=== PATIENT | female | born 1950 | race Caucasian/White ===

== ENCOUNTER → 2018-07-04 | Outpatient (CLI) | payer MEDICARE ==
[~2018-07-04] MED LIST: AMITRIPTYLINE H75 MG; CYMBALTA20 MG; CYMBALTA30 MG; DILTIAZEM ER240 M1; HYDROCODON-ACE1 EAC9; HYDROXYZINE HCL50 MG; KLONOPIN0.5 MG; METAPROTERENOL; NEURONTIN300 MG; NEXIUM20 M1; OLEPTRO ER150 MG; PHENOBARBITAL15 MG
--- NOTE | 2018-07-04 17:37 | Diagnostic Imaging Report ---
EXAMINATION: Abdomen pelvis CT without contrast Indication: History of renal stones, presents with back pain Comparisons: None TECHNIQUE: Spiral CT images of the abdomen and pelvis were performed from the lung bases to the lesser trochanters. No intravenous contrast was given per renal stone protocol. Coronal and sagittal reformatted images were obtained. DISCUSSION: ABSENCE OF INTRAVENOUS CONTRAST DECREASES SENSITIVITY FOR DETECTION OF FOCAL LESIONS AND VASCULAR PATHOLOGY. ABDOMEN/PELVIS: LOWER THORAX: Few scattered coronary calcifications. Lung bases are clear. Lobulated extrapleural fat bilaterally. HEPATOBILIARY: Normal size and contour. No focal hepatic lesions. No intra or extrahepatic biliary ductal dilation. GALLBLADDER: Layering hyperdensity within the gallbladder suggestive of sludge. No wall thickening. SPLEEN: Mild splenomegaly, measuring 14.4 cm in length. PANCREAS: No focal masses or ductal dilatation. ADRENALS: No adrenal nodules. KIDNEYS/URETERS: No hydronephrosis or solid mass lesions. Bilateral nonobstructing renal stones measuring up to 5 to 6 mm in diameter. A 2.8 cm cyst within the right superior pole (series 3, image 34). Somewhat limited evaluation of the distal ureters near the ureterovesicular junction given metallic artifact. PELVIC ORGANS/BLADDER: Somewhat limited evaluation given metallic artifacts as above. Otherwise, grossly unremarkable. PERITONEUM/RETROPERITONEUM: Trace pelvic free fluid is likely physiologic. LYMPH NODES: No intra-abdominal,retroperitoneal, pelvic or inguinal lymphadenopathy. VESSELS: Calcific atherosclerosis of the abdominal aorta and major branching vessels without aneurysmal dilatation. GI TRACT: Appropriately positioned gastrostomy button. No abnormal distention. Few short segment circumferential thickening of the sigmoid colon may represent muscular contraction given the lack of surrounding inflammatory changes. BONES AND SOFT TISSUES: Partially visualized total right hip arthroplasty. Three cannulated screws are noted within the left proximal femur. Diffuse bony demineralization. Wedge compression deformity and Schmorl's node of the T12 vertebral body with mild anterior height loss. Multilevel degenerative changes of the lumbar spine. Sequela of recent injections within the lower abdomen bilaterally. IMPRESSION: Bilateral non-obstructing renal calculi measuring up to 6 mm in diameter. Additional findings: Mild splenomegaly, gallbladder sludge. Signed by: Dante Mccloud MD on 07/04/2018 5:33 PM
== END ==
LOC: CT 15:28
PROVIDERS: ATTEND Urology
DX: N20.0 Calculus of kidney (principal)
CPT/HCPCS: 74176

== ENCOUNTER → 2018-08-19 | Day surgery (SDC) | payer MEDICARE ==
--- NOTE | 2018-08-18 14:17 | Diagnostic Imaging Report ---
EXAMINATION: CHEST 2 VIEWS INDICATION: Pre-operative. COMPARISON: None FINDINGS: TUBES and LINES: None. LUNGS: Lungs are well inflated. There is no evidence of pneumonia or pulmonary edema. Chronic appearing biapical pleural-parenchymal opacity with upper lobe interstitial opacities, consistent with prior granulomatous disease. PLEURA: No pleural effusion or pneumothorax. HEART AND MEDIASTINUM: The cardiomediastinal silhouette is unremarkable. There are atherosclerotic calcifications within the aorta. BONES AND SOFT TISSUES: No acute osseous abnormality. UPPER ABDOMEN: No free air under the diaphragm. IMPRESSION: No acute radiographic abnormality. Signed by: Dr. Eva Lamas MD on 08/18/2018 2:14 PM
--- NOTE | 2018-08-18 14:21 | Diagnostic Imaging Report ---
Exam: KUB - 3 views Clinical History: Preoperative, renal stones. Comparison: CT abdomen/pelvis 07/04/2018. Findings: Bowel gas partially obscures visualization of the kidneys. Bilateral renal stones noted on prior CT are not well visualized. No evidence of calcification overlying the expected location of the ureters. Nonobstructive bowel gas pattern. Gastrostomy tube is noted. Partially seen right total hip arthroplasty and left proximal femoral fixation hardware. No acute osseous abnormality. Impression: Bowel gas partially obscures visualization of the kidneys. Bilateral renal stones noted on prior CT are not well visualized. Signed by: Dr. Eva Lamas MD on 08/18/2018 2:18 PM
[2018-08-18 15:06] LABS: BASOPHILS % 0.3 % (0.0-1.0); EOSINOPHILS # (AUTO) 0.3 (0.0-0.4); HEMATOCRIT 35.5 % (34.2-44.1); HEMOGLOBIN 12.1 g/dL (12.0-16.0); LYMPHOCYTES # (AUTO) 1.6 (1.0-3.2); LYMPHOCYTES % 24.5 % (18.0-39.1); MEAN CORPUSCULAR HEMOGLOBIN 33.6 pg (28-32); MEAN CORPUSCULAR HGB CONC 34.1 g/dL (31-35); MEAN CORPUSCULAR VOLUME 98.6 fL (81-99); MONOCYTES # (AUTO) 0.6 (0.2-0.8); MONOCYTES % 9.4 % (4.4-11.3); NEUTROPHILS # (AUTO) 3.8 (2.1-6.9); NEUTROPHILS % 60.3 % (38.7-80.0); PLATELET COUNT 67 x10e3/uL (140-360); RED CELL DISTRIBUTION WIDTH 14.9 % (11.7-14.4)
[2018-08-18 15:18] LABS: ANION GAP 11.2 mmol/L (8-16); BLOOD UREA NITROGEN 15 mg/dL (7-26); BUN/CREATININE RATIO 21 (6-25); CALCIUM 9.7 mg/dL (8.4-10.2); CARBON DIOXIDE 29 mmol/L (22-29); CHLORIDE 100 mmol/L (98-107); CREATININE, SERUM 0.72 mg/dL (0.57-1.11); EST GLOMERULAR FILTRATION RATE > 60 ML/MIN (60-); GLUCOSE 99 mg/dL (74-118); POTASSIUM 4.2 mmol/L (3.5-5.1); SODIUM 136 mmol/L (136-145)
[~2018-08-19] MED LIST changes: -AMITRIPTYLINE H75 MG; +AMITRIPTYLINE H75 MG GT; +B&O 60MG R/S 60 MG SUPP PR ONE; +BENZONATATE100 MG PO; +BISACODYL5 MG PO; +DESFLURANE 240 ML BTL INH ONE; +DEXAMETHASONE SOD PHOS INJ 4 MG/ML VIAL ONE; +DIAZEPAM5 MG GT; +DIAZEPAM5 MG PO; +FENTANYL CITRATE/PF 100MCG/2 ML INJ ONE; +FLECAINIDE ACE100 MG GT; +GENTAMICIN 80MG/NS 100 ML 100 ML IV ONE; +HYDRALAZINE HCL 20 MG/ML VIAL ONE; +IOPAMIDOL 610MG/1ML 300 MG/ML VIAL IV ONE; -KLONOPIN0.5 MG; +KLONOPIN0.5 MG GT; +LEVOTHYROXINE50 MCG GT; +MEPERIDINE HCL INJ 25 MG/ML VIAL ONE; +METOPROLOL TART50 MG GT; -NEXIUM20 M1; +NEXIUM20 M1 GT; +NORCO 7.5-3251 EACH GT; -OLEPTRO ER150 MG; +OLEPTRO ER150 MG GT; +ONDANSETRON HCL INJ 2MG/ML 2ML 2 MG/ML VIAL ONE; +ONDANSETRON2 MG/1 ML GT; -PHENOBARBITAL15 MG; +PHENOBARBITAL15 MG GT; +PILOCARPINE HCL5 MG GT; +PROMETHAZINE HC25 M1 GT; +PROMETHAZINE HCL (IM) 25 MG/ML VIAL ONE; +PROPOFOL IV EMULSION 10 MG/ML 20 ML VIAL ONE; +SODIUM CHLORIDE 0.9% 250ML 250 ML ONE; +[UNRECOGNIZED DRUG - OTHER]; +lidocaine patch
--- OUTSIDE RECORDS SUMMARY | 2018-08-19 06:18 | XMS REPORT | Clinical Summary ---
Author Author [facility] Organization [facility] Address Unknown Phone Unavailable Care Team Providers Care Pharmacy Consultant Name Role Phone Pearl Grande MD PCP Allergies Comments Active Allergy Reactions Severity Noted Date Cephalosporins Rash Medium 02/01/2017 Erythromycin Rash Medium 02/01/2017 Pork/Porcine Containing Shortness Of High 02/01/2017 Products Breath, Rash [place] Shortness Of High 02/01/2017 Breath, Rash Sulfa (Sulfonamide Hives, Rash Medium 02/01/2017 Antibiotics) Medications End Date Status Medication Sig Dispensed Refills Start Date Active atorvastatin (LIPITOR) 10 Take 10 mg by 0 MG tablet mouth 7 nightly. Active DULoxetine (CYMBALTA) 60 Take 60 mg by 0 MG capsule mouth 2 (two) 7 times a day. Active glimepiride (AMARYL) 4 MG Take 4 mg by 0 tablet mouth 2 (two) 7 times a day with meals. Active HYDROcodone-acetaminophen Take 1 tablet 0 (NORCO) 10-325 mg per by mouth 7 tablet every 4 (four) hours as needed for pain. Active hydrOXYzine (ATARAX) 50 Take 50 mg by 0 MG tablet mouth 3 7 (three) times a day. Active diltiazem XR (DILACOR XR) Take 240 mg 0 240 MG 24 hr capsule by mouth 7 every morning. Active metoprolol tartrate Take 50 mg by 0 (LOPRESSOR) 50 mg tablet mouth 2 (two) 7 times a day. Active omeprazole (PriLOSEC) 40 Take 40 mg by 0 MG capsule mouth daily before breakfast. Active traZODone (DESYREL) 100 Take 100 mg 0 MG tablet by mouth 7 nightly. Active PHENobarbital (LUMINAL) Take 90 mg by 0 30 MG tablet mouth 7 nightly. Active NYAMYC 100,000 unit/gram Apply 1 0 powder application 7 topically 2 (two) times a day as needed for rash. Active lidocaine (LIDODERM) 5 % Place 2 0 patches on 7 the skin nightly. PLACE 1 patch on each leg Active clonAZEPAM (KlonoPIN) 0.5 Take 0.25 mg 0 MG tablet by mouth 3 (three) times a day as needed for seizures. Active ranitidine (ZANTAC) 150 Take 300 mg 0 MG tablet by mouth daily. Active dicyclomine (BENTYL) 10 Take 10 mg by 0 MG capsule mouth 3 (three) times a day. Active escitalopram (LEXAPRO) 10 Take 10 mg by 0 MG tablet mouth daily. Active levothyroxine (SYNTHROID, Take 50 mcg 0 LEVOXYL) 50 mcg tablet by mouth every morning. 10/13/2017 Discontinued diazePAM (VALIUM) 5 MG Take 5 mg by 0 tablet mouth 3 7 (three) times a day. 10/13/2017 Discontinued doxycycline (MONODOX) 100 Take 100 mg 0 MG capsule by mouth 7 nightly. 10/13/2017 Discontinued benadryl/lidocaine/maalox Swish and 0 (MAGIC MOUTHWASH) 1:1:1 swallow 15 mL suspension suspension every 6 (six) hours. Active Problems Problem Noted Date Urinary tract infection without hematuria 10/13/2017 Dehydration 02/01/2017 Encounters Care Team Description Date Type Specialty Luis Chan MD Mougouris, Taso, MD Urinary tract infection without hematuria, site unspecified (Primary Dx); Nausea; Dehydration; Abdominal pain, unspecified abdominal location 10/12/2017 Emergency General Internal Medicine - 10/13/2017 after 08/18/2017 Social History Date Tobacco Use Types Packs/Day Years Used Never Smoker Smokeless Tobacco: Never Used Alcohol Use Drinks/Week oz/Week Comments No Sex Assigned at Date Recorded Not on file Industry Job Start Date Occupation Not on file Not on file Not on file Travel End Travel History Travel Start No recent travel history available. Last Filed Vital Signs Time Taken Vital Sign Reading 10/13/2017 7:05 AM CDT Blood Pressure 166/63 10/13/2017 7:05 AM CDT Pulse 76 10/13/2017 7:05 AM CDT Temperature 36.6 C (97.9 F) 10/13/2017 7:05 AM CDT Respiratory Rate 18 10/13/2017 7:05 AM CDT Oxygen Saturation 95% - Inhaled Oxygen - Concentration 10/12/2017 8:53 PM CDT Weight 54.4 kg (120 lb) 10/12/2017 8:53 PM CDT Height 160 cm (5' 3") 10/12/2017 8:53 PM CDT Body Mass Index 21.26 Plan of Treatment Health Maintenance Due Date Last Done Comments BREAST CANCER SCREENING 2001 COLON CANCER SCREENING 2001 SHINGLES VACCINES (#1) 2001 65+ PNEUMOCOCCAL VACCINE 2016 (1 of 2 - PCV13) INFLUENZA VACCINE 10/13/2018 Procedures Comments Procedure Name Priority Date/Time Associated Diagnosis TROPONIN Timed 10/13/2017 3:38 AM CDT URINALYSIS SCREEN AND STAT 10/13/2017 MICROSCOPY, WITH REFLEX 1:00 AM CDT TO CULTURE GRAM STAIN STAT 10/13/2017 1:00 AM CDT URINE CULTURE STAT 10/13/2017 1:[address] HEAD WO CONTRAST STAT 10/13/2017 12:[address] ABDOMEN PELVIS WO STAT 10/13/2017 CONTRAST 12:49 AM CDT B NATRIURETIC PEPTIDE STAT 10/12/2017 10:24 PM CDT TROPONIN STAT 10/12/2017 10:24 PM CDT ZZESTIMATED GFR STAT 10/12/2017 10:24 PM CDT LIPASE LEVEL STAT 10/12/2017 10:24 PM CDT LACTIC ACID LEVEL, SEPSIS STAT 10/12/2017 - NOW AND REPEAT 2X EVERY 10:24 PM CDT 3 HOURS HEPATIC FUNCTION PANEL STAT 10/12/2017 10:24 PM CDT HC COMPLETE BLD COUNT STAT 10/12/2017 W/AUTO DIFF 10:24 PM CDT BASIC METABOLIC PANEL STAT 10/12/2017 10:24 PM CDT after 08/18/2017 Results * Troponin (10/13/2017 3:38 AM CDT) Only the most recent of 2 results within the time period is included. [facility] Troponin <0.300 0.000 - 0.300 ng/mL [facility] Comment: DEPARTMENT OF 0.30 - 1.49 PATHOLOGY AND ng/mlMay GENOMIC indicate increased risk of MEDICINE acute coronary syndrome. >=1.5 ng/ml Consistent with acute myocardial infarction. The diagnostic value of a single normal or non-diagnostic result is questionable.Serial samples at 2-6 hour intervals are required to rule out acute myocardial injury. Specimen Plasma specimen Performing Organization Address City/State/Zipcode Phone Number [facility] [place] [place] [address] [place] [address] PATHOLOGY AND GENOMIC MEDICINE * Urinalysis screen and microscopy, with reflex to culture (10/13/2017 1:00 AM CDT) [facility] Specimen site Clean catch [facility] DEPARTMENT OF PATHOLOGY AND GENOMIC MEDICINE Color, UA Yellow [facility] DEPARTMENT OF PATHOLOGY AND GENOMIC MEDICINE Appearance, UA Clear [facility] DEPARTMENT OF PATHOLOGY AND GENOMIC MEDICINE Specific 1.008 1.001 - 1.035 [facility] gravity, DEPARTMENT OF PATHOLOGY AND GENOMIC MEDICINE pH, UA 6.0 5.0 - 8.5 [facility] DEPARTMENT OF PATHOLOGY AND GENOMIC MEDICINE Protein, UA Negative Negative [facility] DEPARTMENT OF PATHOLOGY AND GENOMIC MEDICINE Glucose, UA Negative Negative [facility] DEPARTMENT OF PATHOLOGY AND GENOMIC MEDICINE Ketones, UA Negative Negative [facility] DEPARTMENT OF PATHOLOGY AND GENOMIC MEDICINE Bilirubin, UA Negative Negative [facility] DEPARTMENT OF PATHOLOGY AND GENOMIC MEDICINE Blood, UA Negative Negative [facility] DEPARTMENT OF PATHOLOGY AND GENOMIC MEDICINE Nitrite, UA Negative Negative [facility] DEPARTMENT OF PATHOLOGY AND GENOMIC MEDICINE Urobilinogen, Negative <2.0 [facility] DEPARTMENT OF PATHOLOGY AND GENOMIC MEDICINE Leukocyte Small (A) Negative [facility] esterase, DEPARTMENT OF PATHOLOGY AND GENOMIC MEDICINE Round Moderate 0 - 1 /HPF [facility] epithelial DEPARTMENT OF cells, PATHOLOGY AND GENOMIC MEDICINE WBC, UA 6-10 (H) 0 - 4 /HPF [facility] DEPARTMENT OF PATHOLOGY AND GENOMIC MEDICINE RBC, UA 6-10 (H) 0 - 5 /HPF [facility] DEPARTMENT OF PATHOLOGY AND GENOMIC MEDICINE Bacteria, UA None seen None seen [facility] DEPARTMENT OF PATHOLOGY AND GENOMIC MEDICINE Yeast, UA None seen [facility] DEPARTMENT OF PATHOLOGY AND GENOMIC MEDICINE Yeast with None seen [facility] pseudohyphae, DEPARTMENT OF PATHOLOGY AND GENOMIC MEDICINE Specimen Urine Performing Organization Address City/[facility] [address]/Zipcode Phone Number [facility] DEPARTMENT OF [address] [place] [address] [place] [address] PATHOLOGY AND GENOMIC MEDICINE * Gram stain (10/13/2017 1:00 AM CDT) Gram stain Rare WBC's [facility] DEPARTMENT result No organisms seen OF PATHOLOGY Comment: AND GENOMIC Specimen Information MEDICINE Specimen Source: Urine Specimen Site: Clean catch Specimen Urine Performing Organization Address City/State/Zipcode Phone Number [facility] DEPARTMENT OF [address] [phone] PATHOLOGY AND GENOMIC MEDICINE * Urine culture (10/13/2017 1:00 AM CDT) Urine culture Gram positive mita [facility] DEPARTMENT isolate 10-1 cfu/ml OF PATHOLOGY (A) AND GENOMIC Comment: MEDICINE Specimen Information Specimen Source: Urine Specimen Site: Clean catch Specimen Urine Performing Organization Address City/[facility] [address]/[facility] Phone Number [facility] DEPARTMENT OF [address] [place] [address] PATHOLOGY AND GENOMIC MEDICINE * CT Head Wo Contrast (10/13/2017 12:50 AM CDT) Specimen Narrative Performed At EXAMINATION: CT HEAD WO CONTRAST RADIANT CLINICAL HISTORY: fall 1 week agogeneralized weakness COMPARISON:09/19/[address] TECHNIQUE: Noncontrast enhanced images of the brain were obtained from the skull base to the vertex. Both soft tissue and bone reconstruction algorithms were performed. CT scans are performed using radiation dose reduction techniques (iterative reconstruction and/or automated exposure control). Technical factors are evaluated and adjusted to ensure appropriate moderation of exposure. Automated dose management technology is applied to adjust radiation exposure while achieving a diagnostic quality image. FINDINGS: Mild generalized brain parenchymal volume loss. Nonspecific hypoattenuation of the supratentorial white matter, likely chronic microangiopathic changes. Mild cerebrovascular calcifications. The brain parenchyma is otherwise unremarkable. The garza-white matter differentiation is preserved. No evidence of acute intra or extra-axial hemorrhage, mass, mass effect or acute territorial infarction. There is no acute hydrocephalus. Basal cisterns are patent. No acute soft tissue hematoma or laceration. No skull fractures or aggressive bony lesions. Paranasal sinuses and mastoid air cells are clear. Orbits are normal. IMPRESSION: No acute intracranial abnormality identified. [facility]-[id number] Procedure Note Interface, Radiology Results Incoming - 10/13/2017 12:56 AM CDT EXAMINATION: CT HEAD WO CONTRAST CLINICAL HISTORY: fall 1 week ago generalized weakness COMPARISON: 09/19/[address] TECHNIQUE: Noncontrast enhanced images of the brain were obtained from the skull base to the vertex. Both soft tissue and bone reconstruction algorithms were performed. CT scans are performed using radiation dose reduction techniques (iterative reconstruction and/or automated exposure control). Technical factors are evaluated and adjusted to ensure appropriate moderation of exposure. Automated dose management technology is applied to adjust radiation exposure while achieving a diagnostic quality image. FINDINGS: Mild generalized brain parenchymal volume loss. Nonspecific hypoattenuation of the supratentorial white matter, likely chronic microangiopathic changes. Mild cerebrovascular calcifications. The brain parenchyma is otherwise unremarkable. The garza-white matter differentiation is preserved. No evidence of acute intra or extra-axial hemorrhage, mass, mass effect or acute territorial infarction. There is no acute hydrocephalus. Basal cisterns are patent. No acute soft tissue hematoma or laceration. No skull fractures or aggressive bony lesions. Paranasal sinuses and mastoid air cells are clear. Orbits are normal. IMPRESSION: No acute intracranial abnormality identified. [facility]-[id number] Performing Organization Address City/State/Zipcode Phone Number [facility] [address] [place] [address] * CT Abdomen Pelvis Wo Contrast (10/13/2017 12:49 AM CDT) Specimen Narrative Performed At EXAMINATION:[facility]:fall 1 week ago with diffuse abd pain eval liver splenic injuryviscous injury. TECHNIQUE: Multiple axial images of the abdomen and pelvis were obtained without intravenous administration of iodinated contrast. Sagittal and coronal computerized reformatted images were also obtained. The lack of intravenous contrast reduces the sensitivity of detecting solid organ disease. CT imaging was performed with iterative reconstruction technique and/or automated exposure control to reduce radiation dose. COMPARISON:10/18/2011 IMPRESSION: Mild bibasilar atelectasis/scarring. High-density material is seen in the lumen of the gallbladder, suggestive of sludge and/or gallstones. No wall thickening or pericholecystic fluid. Liver, pancreas, adrenal glands are normal. Spleen is enlarged measuring 14.4 cm in length. Simple cysts are seen of the right kidney. Punctate nonobstructive calculus is seen of inferior pole of the right kidney. Punctate nonobstructive calculus is seen of interpolar region of the left kidney. In the left renal pelvis, there is a nonobstructive calculus measuring 0.7 x 0.3 cm. No left hydronephrosis or hydroureter. Bladder is normal. No free intraperitoneal fluid or air. Atherosclerotic vascular calcifications are seen. Focal narrowing and wall thickening of the ascending colon is seen (series 2, images 59-64), and a mass cannot be excluded. Correlation with colonoscopy would be of benefit. The appendix is normal. No gastrointestinal tract obstruction. No acute osseous abnormalities. Patient is status post right hip arthroplasty. Hardware is seen of the left femur. Old compression deformity of superior endplate of T12 is stable since 2011. CONCLUSION: Nonobstructive calculus is seen in the left renal pelvis measuring 0.7 x 0.3 cm. Additional nonobstructive calculi are seen of the collecting system of the kidneys bilaterally. Focal narrowing/wall thickening of the ascending colon is seen as detailed above. Underlying mass cannot be excluded and correlation with colonoscopy is advised. High-density material is seen in the lumen of the gallbladder, suggestive of sludge and/or gallstones. No acute traumatic anomalies. [facility]-[id number] Procedure Note [facility], Radiology Results Incoming - 10/13/2017 1:06 AM CDT EXAMINATION: CT ABDOMEN PELVIS WO CONTRAST CLINICAL HISTORY: fall 1 week ago with diffuse abd pain eval liver splenic injury viscous injury. TECHNIQUE: Multiple axial images of the abdomen and pelvis were obtained without intravenous administration of iodinated contrast. Sagittal and coronal computerized reformatted images were also obtained. The lack of intravenous contrast reduces the sensitivity of detecting solid organ disease. CT imaging was performed with iterative reconstruction technique and/or automated exposure control to reduce radiation dose. COMPARISON: 10/18/2011 IMPRESSION: Mild bibasilar atelectasis/scarring. High-density material is seen in the lumen of the gallbladder, suggestive of sludge and/or gallstones. No wall thickening or pericholecystic fluid. Liver, pancreas, adrenal glands are normal. Spleen is enlarged measuring 14.4 cm in length. Simple cysts are seen of the right kidney. Punctate nonobstructive calculus is seen of inferior pole of the right kidney. Punctate nonobstructive calculus is seen of interpolar region of the left kidney. In the left renal pelvis, there is a nonobstructive calculus measuring 0.7 x 0.3 cm. No left hydronephrosis or hydroureter. Bladder is normal. No free intraperitoneal fluid or air. Atherosclerotic vascular calcifications are seen. Focal narrowing and wall thickening of the ascending colon is seen (series 2, images 59-64), and a mass cannot be excluded. Correlation with colonoscopy would be of benefit. The appendix is normal. No gastrointestinal tract obstruction. No acute osseous abnormalities. Patient is status post right hip arthroplasty. Hardware is seen of the left femur. Old compression deformity of superior endplate of T12 is stable since 2012. CONCLUSION: Nonobstructive calculus is seen in the left renal pelvis measuring 0.7 x 0.3 cm. Additional nonobstructive calculi are seen of the collecting system of the kidneys bilaterally. Focal narrowing/wall thickening of the ascending colon is seen as detailed above. Underlying mass cannot be excluded and correlation with colonoscopy is advised. High-density material is seen in the lumen of the gallbladder, suggestive of sludge and/or gallstones. No acute traumatic anomalies. [facility]-[id number] Performing Organization Address City/State/Zipcode Phone Number [facility] [address] [place] [address] * Lactic acid level, SEPSIS - Now and repeat 2x every 3 hours (10/12/2017 10:24 PM CDT) Lactic acid 1.0 0.5 - 2.2 mmol/L [facility] DEPARTMENT OF PATHOLOGY AND GENOMIC MEDICINE Specimen Plasma specimen Performing Organization Address City/State/Zipcode Phone Number [address] [place] [address] PATHOLOGY AND GENOMIC MEDICINE * Estimated GFR (10/12/2017 10:24 PM CDT) [facility] GFR Non Af Amer 84 mL/min/1.73 m2 [facility] PATHOLOGY AND GENOMIC [facility] GFR Af Amer >90 mL/min/1.73 m2 [facility] Comment: DEPARTMENT OF Chronic kidney disease: <60 PATHOLOGY AND mL/min/1.73m2 GENOMIC Kidney failure: <15 MEDICINE mL/min/1.73m2 The estimated GFR is calculated from the IDMS-traceable Modification of Diet in Renal Disease Equation. The accuracy of the calculation is poor when the creatinine is normal. Calculated values >90 mL/min/1.73m2 are not reported. This equation has not been validated in children (<18 years), women, the elderly (>70 years), or ethnic groups other than Caucasians and Americans. Specimen Plasma specimen Performing Organization Address City/State/Zipcode Phone Number [facility] [address] [place] [address] [facility] * CBC with platelet and differential (10/12/2017 10:24 PM CDT) [facility] WBC 8.42 4.50 - 11.00 k/uL [facility] DEPARTMENT OF PATHOLOGY AND GENOMIC MEDICINE RBC 3.93 (L) 4.20 - 5.50 m/uL [facility] PATHOLOGY AND GENOMIC MEDICINE HGB 12.3 12.0 - 16.0 g/dL [facility] PATHOLOGY AND GENOMIC MEDICINE HCT 36.5 (L) 37.0 - 47.0 % [facility] DEPARTMENT PATHOLOGY AND GENOMIC MEDICINE MCV 92.9 82.0 - 100.0 fL [facility] DEPARTMENT OF PATHOLOGY AND GENOMIC MEDICINE MCH 31.3 27.0 - 34.0 pg [facility] DEPARTMENT OF PATHOLOGY AND GENOMIC MEDICINE MCHC 33.7 31.0 - 37.0 g/dL [facility] DEPARTMENT OF PATHOLOGY AND GENOMIC MEDICINE RDW - SD 49.2 37.0 - 55.0 fL [facility] PATHOLOGY AND GENOMIC MEDICINE MPV 11.8 8.8 - 13.2 fL [facility] DEPARTMENT OF PATHOLOGY AND GENOMIC MEDICINE Platelet count 91 (L) 150 - 400 k/uL [facility] DEPARTMENT OF PATHOLOGY AND GENOMIC MEDICINE Nucleated RBC 0.00 /100 WBC [facility] DEPARTMENT OF PATHOLOGY AND GENOMIC MEDICINE Neutrophils 62.8 39.0 - 69.0 % [facility] DEPARTMENT OF PATHOLOGY AND GENOMIC MEDICINE Lymphocytes 23.2 (L) 25.0 - 45.0 % [facility] DEPARTMENT OF PATHOLOGY AND GENOMIC MEDICINE Monocytes 9.3 0.0 - 10.0 % [facility] DEPARTMENT OF PATHOLOGY AND GENOMIC MEDICINE Eosinophils 3.7 0.0 - 5.0 % [facility] DEPARTMENT OF PATHOLOGY AND GENOMIC MEDICINE Basophils 0.4 0.0 - 1.0 % [facility] DEPARTMENT OF PATHOLOGY AND GENOMIC MEDICINE Specimen Blood Performing Organization Address [facility] [address]/[facility] Phone Number [address] [place] [address] PATHOLOGY AND GENOMIC MEDICINE * B natriuretic peptide (10/12/2017 10:24 PM CDT) BNP 15 0 - 100 pg/mL [facility] DEPARTMENT OF PATHOLOGY AND GENOMIC MEDICINE Specimen Performing Organization Address [facility] [address]/[facility] Phone Number [address] [place] [address] PATHOLOGY AND GENOMIC [facility] * Lipase level (10/12/2017 10:24 PM CDT) Lipase 18 13 - 60 U/L [facility] DEPARTMENT OF PATHOLOGY AND GENOMIC MEDICINE Specimen Plasma specimen Performing Organization Address [facility] [address]/[facility] Phone Number [address] [place] [address] PATHOLOGY AND [facility] MEDICINE * Hepatic function panel (10/12/2017 10:24 PM CDT) Albumin 4.6 3.5 - 5.0 g/dL [facility] DEPARTMENT OF PATHOLOGY AND GENOMIC MEDICINE Total bilirubin 0.3 0.0 - 1.2 mg/dL [facility] DEPARTMENT OF PATHOLOGY AND GENOMIC MEDICINE Bilirubin <0.1 0.0 - 0.3 mg/dL [facility] direct DEPARTMENT OF PATHOLOGY AND GENOMIC MEDICINE Alkaline 153 (H) 35 - 104 U/L [facility] phosphatase DEPARTMENT OF PATHOLOGY AND GENOMIC MEDICINE Protein 6.9 6.3 - 8.3 g/dL [facility] Comment: DEPARTMENT OF PATHOLOGY AND 4.6-7.0 g/dL GENOMIC MEDICINE week 4.4-7.6 g/dL 7 months-1year 5.1-7.3 g/dL 1-2 years5.6-7 .5 g/dL >3 years6.0-8 .0 g/dL 18-150 6.3-8.3 g/dL ALT 18 5 - 50 U/L [facility] DEPARTMENT OF PATHOLOGY AND GENOMIC MEDICINE AST 16 10 - 35 U/L [facility] DEPARTMENT OF PATHOLOGY AND GENOMIC MEDICINE Specimen Plasma specimen Performing Organization Address [facility] [address]/[facility] Phone Number [facility] [address] [place] [address] PATHOLOGY AND GENOMIC [facility] * Basic metabolic panel (10/12/2017 10:24 PM CDT) Sodium 136 135 - 148 mEq/L [facility] DEPARTMENT OF PATHOLOGY AND GENOMIC MEDICINE Potassium 4.1 3.5 - 5.0 mEq/L [facility] DEPARTMENT OF PATHOLOGY AND GENOMIC MEDICINE Chloride 96 (L) 98 - 112 mEq/L [facility] DEPARTMENT OF PATHOLOGY AND GENOMIC MEDICINE CO2 31 24 - 31 mEq/L [facility] DEPARTMENT OF PATHOLOGY AND GENOMIC MEDICINE Anion gap 9@ANIO 7 - 15 mEq/L [facility] DEPARTMENT OF PATHOLOGY AND GENOMIC MEDICINE BUN 15 8 - 23 mg/dL [facility] DEPARTMENT OF PATHOLOGY AND GENOMIC MEDICINE Creatinine 0.7 0.5 - 0.9 mg/dL [facility] DEPARTMENT OF PATHOLOGY AND GENOMIC MEDICINE Glucose 117 (H) 65 - 99 mg/dL [facility] DEPARTMENT OF PATHOLOGY AND GENOMIC MEDICINE Calcium 9.6 8.8 - 10.2 mg/dL [facility] DEPARTMENT OF PATHOLOGY AND GENOMIC MEDICINE Specimen Plasma specimen Performing Organization Address [facility]ode Phone Number [place] [address] [place] [address] PATHOLOGY AND GENOMIC MEDICINE after 08/18/2017 Insurance Type Payer Benefit Subscriber ID Effective Phone Address Plan / Dates Group Medicare MEDICARE MEDICARE xxxxxxxxxxx 2016-P [facility] PART A AND resent [place] B Medicaid MEDICAID MEDICAID xxxxxxxxx 2016-P resent Advance Directives Patient has advance care planning documents, and code status on file. For more i nformation, please contact: Seamus Sloan [id number] [place] [address] Date Inactivated Comments Code Status Date Activated 10/13/2017 12:48 PM Full Code 10/13/2017 2:37 AM Code Status decision reached by: Patient 02/01/2017 10:36 PM Full Code 02/01/2017 5:43 PM Code Status decision reached by: Patient
--- OUTSIDE RECORDS SUMMARY | 2018-08-19 06:19 | XMS REPORT | Continuity of Care Document ---
Author Author [facility] Interface Address Unknown Phone Unavailable Problems Problem Status Onset Date Classification Date Reported Comments Source SOB Active 03/09/2018 [facility] WEAKNESS Active 02/05/2017 [facility] INTRACTABLE VOMITING, DEHYDRATION Active 02/05/2017 [facility] FALL Active 06/20/2013 [facility] HIP FRACTURE Active 06/20/2013 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 Dysuria<sup>6</sup> Active 08/09/2012 Problem 02/09/2017 Data migrated from [employer] on 08/11/14. [facility] Muscle weakness<sup>8</sup> Active 08/09/2012 Problem 02/09/2017 Data migrated from [employer] on 08/11/14. [facility] Coronary arteriosclerosis<sup>4</sup> Active 07/11/2012 Problem 02/09/2017 Data migrated from [employer] on 08/11/14. [facility] Neuropathy of lower limb<sup>9</sup> Active 07/11/2012 Problem 02/09/2017 Data migrated from [employer] on 08/11/14. [facility] UNK Active 06/08/2011 [facility] STONE Active 04/09/2011 [facility] RENAL STONE RT [id number] Active 04/09/2011 [facility] AMI - Acute myocardial infarction Resolved Problem 02/09/2017 [facility] Anxiety disorder<sup>1</sup> Active Problem 02/09/2017 Data migrated from [employer] on 08/11/14. [facility] Benign hypertension<sup>2</sup> Active Problem 02/09/2017 Data migrated from [employer] on 08/11/14. [facility] Cerebrovascular accident<sup>3</sup> Active Problem 02/09/2017 Data migrated from [employer] on 08/11/14. [facility] CVA - Cerebrovascular accident Resolved Problem 02/09/2017 [facility] Depressive disorder<sup>5</sup> Active Problem 02/09/2017 Data migrated from [employer] on 08/11/14. [facility] Fibromyalgia Active Problem 02/09/2017 [facility] GERD with esophagitis Resolved Problem 02/09/2017 [facility] Gastroesophageal reflux disease<sup>7</sup> Active Problem 02/09/2017 [facility] on 08/11/14. [facility] HTN - Hypertension Active Problem 02/09/2017 [facility] Neuropathy Active Problem 02/09/2017 [facility] 592.0 Active [facility] LUMBOSACRAL NEURITIS NOS Active [facility] FX NECK OF FEMUR NOS-OPN Active [facility] LEFT HIP ORIF Active [facility] LT HIP Active [facility] Medications Medication Details Route Status Patient Instructions Ordering Provider Order Date Source Ondansetron 8 MG Disintegrating Tablet [Zofran] 8 mg=1 tab, PO, TID, PRN Nausea and Vomiting, Dissolve tab under tongue, # 20 tab, 0 Refill(s), Pharmacy: [facility] [id number] Active 02/06/2017 [facility] 72 HR Fentanyl 0.025 MG/HR Transdermal Patch 1 patch, Route: TOP, Drug Form: ERFILM, Dosing Weight 62.756, kg, Q72H, NOW, Start date: 02/06/17 10:42:00 [employer], Duration: 30 day, Stop date: 03/05/17 10:42:00 CSTNotes: (Same as: Duragesic) Check for product integrity. Apply to intact skin "Remove old patch before application of new patch" Inactive 02/06/2017 [facility] NS 1,000 mL 1,000 mL, Rate: 200 ml/hr, Infuse over: 5 hr, Route: IV, Dosing Weight 62.756 kg, Total Volume: 1,000, Start date: 02/06/17 10:25:00 [employer]WORK [employer], Duration: 30 day, Stop date: 03/08/17 10:24:00 [employer], 1.7, m2 Inactive 02/06/2017 [facility] Diazepam 5 mg, 1 tab, Route: PO, Drug form: TAB, TID, Dosing Weight 62.756, kg, Start date: 02/06/17 9:00:00 [employer]AL [employer]WORK [employer]INEER, Duration: 30 day, Stop date: 03/07/17 17:00:00 CSTNotes: (Same as: Valium) Inactive 02/06/2017 [facility] Vitamin B 12 1,000 microgram, 2 tab, Route: PO, Drug form: TAB, Daily, Dosing Weight 62.756, kg, Start date: 02/06/17 9:00:00 [employer]AL [employer]WORK ENGINEER, Duration: 30 day, Stop date: 03/07/17 9:00:00 CSTNotes: (Same As: Vitamin B12) Inactive 02/06/2017 [facility] Clobetasol Propionate 0.0005 MG/MG Topical Ointment 1 appl, Route: TOP, BID, Drug form: OINT, Start date: 02/06/17 9:00:00 [employer]IPAL NETWORK ENGINEER, Duration: 30 day, Stop date: 03/07/17 17:00:00 CSTNotes: (clobetasol propionate 0.05% 15 gm top OIN) (Same As: Temovate) Inactive 02/06/2017 [facility] Furosemide 40 MG Oral Tablet 40 mg, 1 tab, Route: PO, Drug form: TAB, Daily, Dosing Weight 62.756, kg, Start date: 02/06/17 9:00:00 [employer]IPAL NETWORK ENGINEER, Duration: 30 day, Stop date: 03/07/17 9:00:00 CSTNotes: (Same as: Lasix) May cause GI upset. Give with food or milk. Inactive 02/06/2017 [facility] Cymbalta 30 mg, 1 cap, Route: PO, Drug form: DRC, BID, Dosing Weight 62.756, kg, Start date: 02/06/17 9:00:00 [employer]IPAL NETWORK ENGINEER, Duration: 30 day, Stop date: 03/07/17 17:00:00 CSTNotes: (Same as: Cymbalta) (Do Not Crush) Inactive 02/06/2017 [facility] Cartia XT 240 mg, 1 cap, Route: PO, Drug form: ERCAP, Daily, Dosing Weight 62.756, kg, Start date: 02/06/17 9:00:00 [employer]IPAL NETWORK ENGINEER, Duration: 30 day, Stop date: 03/07/17 9:00:00 CSTNotes: (Same as: Cardizem CD) Before meals. DO NOT CRUSH. Inactive 02/06/2017 [facility] Lidocaine 0.05 MG/MG Transdermal Patch 1 patch, Route: TOP, Daily, Drug form: FILM, Start date: 02/06/17 9:00:00 [employer]WORK ENGINEER, Duration: 30 day, Stop date: 03/07/17 9:00:00 CSTNotes: Apply only once for up to 12 hours in a 24-hour period (12 hours on and 12 hours off). (Same as: Lidoderm) "Remove old patch before application of new patch" Inactive 02/06/2017 [facility] Clonazepam 1 mg, 1 tab, Route: PO, Drug form: TAB, Q12H, Dosing Weight 62.756, kg, Start date: 02/06/17 9:00:00 [employer]IPAL NETWORK ENGINEER, Duration: 30 day, Stop date: 03/07/17 21:00:00 CSTNotes: (Same As: KlonoPIN) Inactive 02/06/2017 [facility] Zyrtec 10 mg, 2 tab, Route: PO, Drug form: TAB, Daily, Dosing Weight 62.756, kg, Start date: 02/06/17 9:00:00 [employer]IPAL NETWORK ENGINEER, Duration: 30 day, Stop date: 03/07/17 9:00:00 CSTNotes: (Same As: Zyrtec) Inactive 02/06/2017 [facility] Acetaminophen 325 MG / Hydrocodone Bitartrate 7.5 MG Oral Tablet [[place] 7.5/325] 1 tab, Route: PO, Drug Form: TAB, Dosing Weight 62.756, kg, Q12H, Start date: 02/06/17 9:00:00 [employer]IPAL NETWORK ENGINEER, Duration: 30 day, Stop date: 03/07/17 21:00:00 CSTNotes: Same as [place] 325-7.5mg Do not exceed 4gm/day of acetaminophen. Inactive 02/06/2017 [facility] Hydroxyzine Hydrochloride 50 MG Oral Tablet 50 mg, 2 tab, Route: PO, Drug form: TAB, TID, Dosing Weight 62.756, kg, Start date: 02/06/17 9:00:00 [employer]IPAL NETWORK ENGINEER, Duration: 30 day, Stop date: 03/07/17 17:00:00 CSTNotes: (Same as: Atarax) Avoid alcohol. Inactive 02/06/2017 [facility] glimepiride 4 mg, Route: PO, Drug form: TAB, BID, Dosing Weight 62.756, kg, Start date: 02/06/17 9:00:00 [employer]IPAL NETWORK ENGINEER, Duration: 30 day, Stop date: 03/07/17 17:00:00 [employer]IPAL NETWORK ENGINEER Inactive 02/06/2017 [facility] Doxycycline 100 mg, 2 cap, Route: PO, Drug form: CAP, Daily, Dosing Weight 62.756, kg, Start date: 02/06/17 9:00:00 [employer]IPAL NETWORK ENGINEER, Duration: 30 day, Stop date: 03/07/17 9:00:00 CSTNotes: (Same as: Vibramycin) No milk/antaci ds/iron. Take 1 hour before or 2 hours after dairy products Inactive 02/06/2017 [facility] multivitamin 1 tab, Route: PO, Drug Form: TAB, Dosing Weight 62.756, kg, Daily, Start date: 02/06/17 9:00:00 [employer]IPAL NETWORK ENGINEER, Duration: 30 day, Stop date: 03/07/17 9:00:00 CSTNotes: (Same as:One Tab Daily, Tab-A-Ruthann + Beta Carotene) Give with food. Inactive 02/06/2017 [facility] Acetaminophen 325 MG / Hydrocodone Bitartrate 10 MG Oral Tablet 1 tab, Route: PO, Drug Form: TAB, Dosing Weight 62.756, kg, TID, Start date: 02/06/17 9:00:00 [employer]IPAL NETWORK ENGINEER, Duration: 30 day, Stop date: 03/07/17 17:00:00 CSTNotes: Do not exceed 4gm/day of acetaminophen. (Same as: [place] 325/10) Inactive 02/06/2017 [facility] Dicyclomine 10 mg, 1 cap, Route: PO, Drug form: CAP, QID- Before Meals, Dosing Weight 62.756, kg, Start date: 02/06/17 7:30:00 [employer]IPAL NETWORK ENGINEER, Duration: 30 day, Stop date: 03/07/17 21:00:00 CSTNotes: (Same as: Bentyl) Inactive 02/06/2017 [facility] Nexium 20 mg, Route: PO, Drug form: ECCAP, Before Breakfast, Dosing Weight 62.756, kg, Start date: 02/06/17 7:30:00 [employer]IPAL NETWORK ENGINEER, Duration: 30 day, Stop date: 03/07/17 7:30:00 [employer]IPAL NETWORK ENGINEER Inactive 02/06/2017 [facility] Protonix 40 mg, 1 tab, Route: PO, Drug form: ECTAB, Before Breakfast, Start date: 02/06/17 7:30:00 PRINCIPAL NETWORK ENGINEER, Duration: 30 day, Stop date: 03/07/17 7:30:00 CSTNotes: Tablet should not be chewed or crushed. (Same as: Protonix) Inactive 02/06/2017 [facility] atorvastatin 10 mg, 1 tab, Route: PO, Drug form: TAB, Bedtime, Dosing Weight 62.756, kg, Start date: 02/06/17 0:43:00 PR[employer]IPAL NETWORK ENGINEER, Duration: 30 day, Stop date: 03/07/17 21:00:00 CSTNotes: (Same As: Lipitor) Inactive 02/06/2017 [facility] Phenobarbital 90 mg, 3 tab, Route: PO, Drug form: TAB, Bedtime, Dosing Weight 62.756, kg, Start date: 02/06/17 0:42:00 PRINCIPAL NETWORK ENGINEER, Duration: 30 day, Stop date: 03/07/17 21:00:00 CSTNotes: (Same as: Marifer Lamb, Solf oton) Inactive 02/06/2017 [facility] Phenergan 25 mg, 1 tab, Route: PO, Drug form: TAB, Q6H, Dosing Weight 62.756, kg, PRN Nausea, Start date: 02/06/17 0:26:00 [employer]INCIPAL NETWORK ENGINEER, Duration: 30 day, Stop date: 03/08/17 0:25:00 CSTNotes: (Same as: Phenergan) Inactive 02/06/2017 [facility] ammonium lactate 120 MG/ML Topical Cream 1 appl, Route: TOP, BID, Drug form: CRM, PRN Itching, Start date: 02/06/17 0:26:00 [employer]INCIPAL NETWORK ENGINEER, Duration: 30 day, Stop date: 03/08/17 0:25:00 CSTNotes: (Same as: Amlactin) Inactive 02/06/2017 [facility] Mupirocin 0.02 MG/MG Topical Ointment 1 appl, Route: TOP, TID, Drug form: OINT, PRN Itching, Start date: 02/06/17 0:26:00 [employer]IPAL NETWORK ENGINEER, Duration: 30 day, Stop date: 03/08/17 0:25:00 [employer]IPAL NETWORK ENGINEER Inactive 02/06/2017 [facility] Trazodone Hydrochloride 100 MG Oral Tablet 100 mg, 2 tab, Route: PO, Drug form: TAB, Bedtime, Dosing Weight 62.756, kg, Start date: 02/06/17 0:13:00 PRINCIPAL NETWORK ENGINEER, Duration: 30 day, Stop date: 03/07/17 21:00:00 CSTNotes: (Same As: Desyrel) Inactive 02/06/2017 [facility] Simvastatin 20 mg, 1 tab, Route: PO, Drug form: TAB, Bedtime, Dosing Weight 62.756, kg, Start date: 02/06/17 0:13:00 PRINCIPAL NETWORK ENGINEER, Duration: 30 day, Stop date: 03/07/17 21:00:00 CSTNotes: (Same as: Zocor) Inactive 02/06/2017 [facility] Lopressor 50 mg, 1 tab, Route: PO, Drug form: TAB, Q12H, Dosing Weight 62.756, kg, Start date: 02/06/17 0:12:00 PRINCIPAL NETWORK ENGINEER, Duration: 30 day, Stop date: 03/07/17 21:00:00 CSTNotes: (Same as: Lopressor) Inactive 02/06/2017 [facility] Hydroxyzine Hydrochloride 50 MG Oral Tablet 50 mg, 2 tab, Route: PO, Drug form: TAB, Bedtime, Dosing Weight 62.756, kg, Start date: 02/06/17 0:12:00 [employer]INCIPAL NETWORK ENGINEER, Duration: 30 day, Stop date: 03/07/17 21:00:00 CSTNotes: (Same as: Atarax) Avoid alcohol. Inactive 02/06/2017 [facility] Sodium Chloride 0.45% IV 1,000 mL 1,000 mL, Rate: 100 ml/hr, Infuse over: 10 hr, Route: IV, Dosing Weight 62.756 kg, Total Volume: 1,000, Start date: 02/06/17 0:06:00 [employer]IPAL NETWORK [employer]INEER, Duration: 30 day, Stop date: 03/08/17 0:05:00 [employer]IPAL NETWORK ENGINEER, 1.7, m2 Inactive 02/06/2017 [facility] Saline Flush 0.9% 10 ml, Route: IVP, Drug Form: INJ, Dosing Weight 62.756, kg, PRN, PRN Line Flush, Start date: 02/06/17 0:06:00 [employer]IPAL NETWORK ENGINEER, Duration: 30 day, Stop date: 03/08/17 0:05:00 CSTNotes: (Same as: BD Posiflush) Inactive 02/06/2017 [facility] Ondansetron 4 mg, 2 mL, Route: IVP, Drug form: INJ, Q6H, Dosing Weight 62.756, kg, PRN Nausea & Vomiting, Start date: 02/06/17 0:06:00 [employer]INCIPAL NETWORK ENGINEER, Duration: 30 day, Stop date: 03/08/17 0:05:00 CSTNotes: (Same as: Umu) MEDICATION WASTE Product Size: 4 mg Product Wasted: ___ mg Inactive 02/06/2017 [facility] Acetaminophen 650 mg, 2 tab, Route: PO, Drug form: TAB, Q4H, Dosing Weight 62.756, kg, PRN Pain 1-3/Temp > 100.4 F, Start date: 02/06/17 0:06:00 PRINCIPAL NETWORK ENGINEER, Duration: 30 day, Stop date: 03/08/17 0:05:00 CSTNotes: Do not exceed 4 gm/day. (Same as: Tylenol) Inactive 02/06/2017 [facility] PHENobarbital 30 mg oral tablet 90 mg=3 tab, PO, Bedtime, 0 Refill(s) Active 02/06/2017 [facility] Mupirocin 0.02 MG/MG Topical Ointment 1 appl, TOP, PRN Itching, 0 Refill(s) Active 02/06/2017 [facility] B-12 1000 mcg sublingual tablet 1,000 microgram=1 tab, SL, Daily, 0 Refill(s) Active 02/06/2017 [facility] omeprazole 40 mg oral delayed release capsule 40 mg=1 cap, PO, Daily, # 30 cap, 0 Refill(s) Active 02/06/2017 [facility] Acetaminophen 325 MG / Hydrocodone Bitartrate 10 MG Oral Tablet 1 tab, PO, TID, 0 Refill(s) Active 02/06/2017 [facility] Lidocaine 0.05 MG/MG Transdermal Patch 1 patch, TOP, Daily, 1 TO EACH LEG, 0 Refill(s) Active 02/06/2017 [facility] diazepam 5 mg oral tablet 5 mg=1 tab, PO, TID, 0 Refill(s) Active 02/06/2017 [facility] Multiple Vitamins oral tablet 1 tab, PO, Daily, # 90 tab, 0 Refill(s) Active 02/06/2017 [facility] Caltrate 600 + D 1 tab, PO, BID, 0 Refill(s) Active 02/06/2017 [facility] dicyclomine 10 mg oral capsule 10 mg=1 cap, PO, QID-Before Meals, # 56 cap, 0 Refill(s) Active 02/06/2017 [facility] Phenergan 25 mg oral tablet 25 mg=1 tab, PO, Q6H, PRN Nausea, # 15 tab, 0 Refill(s) Active 02/06/2017 [facility] glimepiride 4 mg oral tablet 4 mg=1 tab, PO, BID, 0 Refill(s) Active 02/06/2017 [facility] doxycycline monohydrate 100 mg oral tablet 100 mg=1 tab, PO, Daily, 0 Refill(s) Active 02/06/2017 [facility] Clobetasol Propionate 0.0005 MG/MG Topical Ointment 1 appl, TOP, BID, # 15 gm, 0 Refill(s) Active 02/06/2017 [facility] ammonium lactate 120 MG/ML Topical Cream 1 appl, TOP, PRN Itching, 0 Refill(s) Active 02/06/2017 [facility] Lactate TOP, BID, 0 Refill(s) Inactive 02/06/2017 [facility] atorvastatin 10 mg oral tablet 10 mg=1 tab, PO, Bedtime, # 30 tab, 0 Refill(s) Active 02/06/2017 [facility] Zofran 4 mg, 2 mL, Route: IVP, Drug form: INJ, ONCE, Dosing Weight 63.636, kg, Priority: STAT, Start date: 02/05/17 21:33:00 [employer]INCIPAL NETWORK ENGINEER, Stop date: 02/05/17 21:33:00 CSTNotes: (Same as: Zofran) MEDICATION WASTE Product Size: 4 mg Product Wasted: ___ mg Inactive 02/06/2017 [facility] Morphine 4 mg, 1 mL, Route: IVP, Drug form: SOLN, ONCE, Dosing Weight 63.636, kg, Priority: STAT, Start date: 02/05/17 21:33:00 PRINCIPAL NETWORK ENGINEER, Stop date: 02/05/17 21:33:00 CSTNotes: (Same as:MORPhine Sulfate) Inactive 02/06/2017 [facility] Ativan 0.5 mg, Route: IVP, Drug form: INJ, ONCE, Dosing Weight 63.636, kg, Priority: STAT, Start date: 02/05/17 20:26:00 PRINCIPAL NETWORK ENGINEER, Stop date: 02/05/17 20:26:00 PRINCIPAL NETWORK ENGINEER Inactive 02/06/2017 [facility] Sodium Chloride 0.9% (Bolus) IV 1,000 mL, 1000 ml/hr, Infuse Over: 1 hr, Route: IV, 1,000, Drug form: INJ, ONCE, Priority: STAT, Dosing Weight 63.636 kg, Start date: 02/05/17 19:20:00 PRINCIPAL NETWORK ENGINEER, Stop date: 02/05/17 19:20:00 PRINCIPAL NETWORK ENGINEER Inactive 02/06/2017 [facility] morphine Sulfate 4 mg, 2 mL, Route: IVP, Drug form: SOLN, ONCE, Dosing Weight 63.636, kg, Priority: STAT, Start date: 02/05/17 18:14:00 PRINCIPAL NETWORK ENGINEER, Stop date: 02/05/17 18:14:00 PRINCIPAL NETWORK ENGINEER Inactive 02/06/2017 [facility] Ondansetron 4 mg, 2 mL, Route: IVP, Drug form: INJ, ONCE, Dosing Weight 63.636, kg, Priority: STAT, Start date: 02/05/17 16:57:00 PRINCIPAL NETWORK ENGINEER, Stop date: 02/05/17 16:57:00 CSTNotes: (Same as: Zofran) MEDICATION WASTE Product Size: 4 mg Product Wasted: ___ mg Inactive 02/05/2017 [facility] Famotidine 20 mg, 2 mL, Route: IVP, Drug form: INJ, ONCE, Dosing Weight 63.636, kg, Priority: STAT, Start date: 02/05/17 16:57:00 PRINCIPAL NETWORK ENGINEER, Stop date: 02/05/17 16:57:00 CSTNotes: (Same as: Pepcid) Can be dilute in 5-10cc NS IVP: Slow IV push over at least 2 minutes. Inactive 02/05/2017 [facility] Morphine 4 mg, 1 mL, Route: IVP, Drug form: SOLN, ONCE, Dosing Weight 63.636, kg, Priority: STAT, Start date: 02/05/17 16:57:00 PRINCIPAL NETWORK ENGINEER, Stop date: 02/05/17 16:57:00 CSTNotes: (Same as:MORPhine Sulfate) Inactive 02/05/2017 [facility] Saline Flush 0.9% 10 mL, Route: IVP, Drug Form: INJ, Dosing Weight 63.636, kg, PRN, PRN Line Flush, Start date: 02/05/17 16:57:00 PRINCIPAL NETWORK ENGINEER, Duration: 30 day, Stop date: 03/07/17 16:56:00 CSTNotes: (Same as: BD Posiflush) No Longer Active 02/05/2017 [facility] Sodium Chloride 0.9% (Bolus) IV 1,000 mL, 2,000 ml/hr, Infuse Over: 30 minutes, Route: IV, 1,000, Drug form: INJ, ONCE, Priority: STAT, Dosing Weight 63.636 kg, Start date: 02/05/17 16:57:00 PRINCIPAL NETWORK ENGINEER, Stop date: 02/05/17 16:57:00 PRINCIPAL NETWORK ENGINEER Inactive 02/05/2017 [facility] Phenergan 12.5 mg, 1 tab, Route: PO, Drug form: TAB, Q4H, Dosing Weight 61.364, kg, PRN Nausea & Vomiting, Start date: 06/27/13 12:16:00, Duration: 30 day, Stop date: 07/27/13 12:15:00Notes: (Same as: Phenergan) Inactive 06/27/2013 [facility] Promethazine Hydrochloride 12.5 MG Oral Tablet [Phenergan] 12.5 mg=1 tab, PO, Q4H, Other-See Comments, # 60 tab, 0 Refill(s) Active 06/27/2013 [facility] Phenergan 12.5 mg, Route: PO, Drug form: TAB, Q6H, Dosing Weight 61.364, kg, PRN Nausea & Vomiting, Start date: 06/27/13 12:13:00, Duration: 30 day, Stop date: 07/27/13 12:12:00 Inactive 06/27/2013 [facility] Acetaminophen 325 MG / Hydrocodone Bitartrate 5 MG Oral Tablet [[place] 5/325] 1 tab, PO, Q4-6H, as needed for pain, # 30 tab, 0 Refill(s) Active 06/27/2013 [facility] Zofran ODT 4 mg, 1 tab, Route: PO, Drug form: TABDIS, Q8H, Dosing Weight 61.364, kg, PRN Nausea, Start date: 06/23/13 13:52:00, Duration: 30 day, Stop date: 07/23/13 13:51:00Notes: (Same as: Zofran ODT) No Longer Active 06/23/2013 [facility] cyclobenzaprine 5 mg, 0.5 tab, Route: PO, Drug form: TAB, TID, Dosing Weight 61.364, kg, PRN Spasm, Start date: 06/22/13 16:11:00, Duration: 30 day, Stop date: 07/22/13 16:10:00Notes: (Same As: Flexeril) No Longer Active 06/22/2013 [facility] Acetaminophen 325 MG / Hydrocodone Bitartrate 10 MG Oral Tablet [[place] 10/325] 1 tab, Route: PO, Drug Form: TAB, Dosing Weight 61.364, kg, Q4H, PRN Pain Score 7-10, Start date: 06/22/13 16:10:00, Duration: 30 day, Stop date: 07/22/13 16:09:00Notes: Do not exceed 4gm/day of acetaminophen. (Same as: [place] 325/10) No Longer Active 06/22/2013 [facility] Acetaminophen 325 MG / Hydrocodone Bitartrate 7.5 MG Oral Tablet [[place] 7.5/325] 1 tab, Route: PO, Drug Form: TAB, Dosing Weight 61.364, kg, Q4H, PRN Pain Score 4-6, Start date: 06/22/13 16:10:00, Duration: 30 day, Stop date: 07/22/13 16:09:00Notes: Same as [place] 325-7.5mg Do not exceed 4gm/day of acetaminophen. No Longer Active 06/22/2013 [facility] Lovenox 40 mg, 0.4 mL, Route: SUB-Q, Drug form: INJ, [id number], Start date: 06/22/13 11:00:00, Duration: 30 day, Stop date: 07/21/13 11:00:00Notes: (Same as: Lovenox) No Longer Active 06/22/2013 [facility] Phenergan 25 mg, 1 mL, Route: IM, Drug form: INJ, Q6H, Dosing Weight 61.364, kg, PRN Nausea, Start date: 06/22/13 9:46:00, Duration: 30 day, Stop date: 07/22/13 9:45:00Notes: Do not give IV push. (Same as: energan) No Longer Active 06/22/2013 [facility] Phenergan 25 mg, 1 mL, Route: IVP Central, Q6H, Dosing Weight 61.364, kg, PRN Nausea & Vomiting, Start date: 06/22/13 9:23:00, Duration: 30 day, Stop date: 07/22/13 9:22:00Notes: Do not give IV push. (Same as: Phenergan) Inactive 06/22/2013 [facility] Cartia XT 240 mg, 1 cap, Route: PO, Drug form: ERCAP, Daily, Dosing Weight 62.273, kg, Start date: 06/22/13 9:00:00, Duration: 30 day, Stop date: 07/21/13 9:00:00Notes: (Same as: Cardizem CD) Before meals. DO NOT CRUSH. No Longer Active 06/22/2013 [facility] Nexium 20 mg, Route: PO, Drug form: ECCAP, Before Breakfast, Dosing Weight 62.273, kg, Start date: 06/22/13 7:30:00, Duration: 30 day, Stop date: 07/21/13 7:30:00 No Longer Active 06/22/2013 [facility] vancomycin 1 gm, 200 mL, Route: IVPB, Drug form: INJ, [id number], Start date: 06/22/13 6:00:00, Duration: 2 doses or times, Stop date: 06/22/13 18:00:00 Inactive 06/22/2013 [facility] Tylenol 650 mg, 2 tab, Route: PO, Drug form: TAB, Q4H, PRN Pain/Fever, Start date: 06/22/13 0:40:00, Duration: 30 day, Stop date: 07/22/13 0:39:00Notes: Do not exceed 4 gm/day. (Same as: Tylenol) No Longer Active 06/22/2013 [facility] morphine Sulfate 1 mg, 0.5 mL, Route: IV, Drug form: INJ, Q2H, PRN Pain Score 1-3, Start date: 06/22/13 0:39:00, Stop date: 07/22/13 0:38:00Notes: (Same as:MORPhine Sulfate) No Longer Active 06/22/2013 [facility] morphine Sulfate 2 mg, 1 mL, Route: IV, Drug form: INJ, Q2H, PRN Pain Score 4-6, Start date: 06/22/13 0:38:00, Stop date: 07/22/13 0:37:00Notes: (Same as:MORPhine Sulfate) No Longer Active 06/22/2013 [facility] Lactated Ringers Injection IV 1,000 mL 1,000 mL, Rate: 100 ml/hr, Infuse over: 10 hr, Route: IV, Dosing Weight 61.364 kg, Total Volume: 1,000, Start date: 06/22/13 0:36:00, Duration: 30 day, Stop date: 07/22/13 0:35:00 Inactive 06/22/2013 [facility] Ancef 1 gm, Route: IVPB, ONCE, Dosing Weight 61.364, kg, Start date: 06/21/13 23:32:00, Duration: 1 doses or times, Stop date: 06/21/13 23:32:00 Inactive 06/22/2013 [facility] Hydroxyzine Hydrochloride 50 MG Oral Tablet 50 mg, 2 tab, Route: PO, Drug form: TAB, Bedtime, Dosing Weight 62.273, kg, Start date: 06/21/13 21:00:00, Duration: 30 day, Stop date: 07/20/13 21:00:00Notes: (Same as: Atarax) Avoid alcohol. No Longer Active 06/22/2013 [facility] Trazodone Hydrochloride 100 MG Oral Tablet 100 mg, 1 tab, Route: PO, Drug form: TAB, Bedtime, Dosing Weight 62.273, kg, Start date: 06/21/13 21:00:00, Duration: 30 day, Stop date: 07/20/13 21:00:00Notes: (Same As: Desyrel) No Longer Active 06/22/2013 [facility] Simvastatin 20 mg, 1 tab, Route: PO, Drug form: TAB, Bedtime, Dosing Weight 62.273, kg, Start date: 06/21/13 21:00:00, Duration: 30 day, Stop date: 07/20/13 21:00:00Notes: (Same as: Zocor) No Longer Active 06/22/2013 [facility] Lactated Ringers IV 1,000 mL 1,000 mL, Rate: 40 ml/hr, Infuse over: 25 hr, Route: IV, Dosing Weight 61.364 kg, Total Volume: 1,000, Start date: 06/21/13 19:16:00, Duration: 30 day, Stop date: 07/21/13 19:15:00 No Longer Active 06/22/2013 [facility] Morphine 4 mg, Route: IVP, ONCE, Dosing Weight 61.364, kg, Start date: 06/21/13 19:03:00, Stop date: 06/21/13 19:03:00 Inactive 06/22/2013 [facility] 24 HR Metoprolol Tartrate 50 MG Extended Release Tablet [Toprol] 50 mg, 1 tab, Route: PO, Drug form: ERTAB, Q24H, Start date: 06/21/13 18:00:00, Duration: 30 day, Stop date: 07/20/13 18:00:00Notes: (Same as: Toprol XL) May split tab, but do not crush. No Longer Active 06/21/2013 [facility] Vancomycin 1 gm, 200 mL, Route: IV, Drug form: INJ, ONCE, Dosing Weight 62.273, kg, Start date: 06/21/13 17:25:00, Stop date: 06/21/13 17:25:00 Inactive 06/21/2013 [facility] Dilaudid 1 mg, 1 mL, Route: IVP, Drug form: INJ, ONCE, Dosing Weight 62.273, kg, Priority: STAT, Start date: 06/21/13 17:19:00, Stop date: 06/21/13 17:19:00 Inactive 06/21/2013 [facility] Ancef 1 gm, Route: IVPB, ONCE, Dosing Weight 62.273, kg, Start date: 06/21/13 17:19:00, Duration: 1 doses or times, Stop date: 06/21/13 17:19:00 Inactive 06/21/2013 [facility] Cymbalta 30 mg, 1 cap, Route: PO, Drug form: DRC, BID, Dosing Weight 62.273, kg, Start date: 06/21/13 17:00:00, Duration: 30 day, Stop date: 07/21/13 9:00:00Notes: Non-Formulary Drug. (Same as: Cymbalta) (Do Not Crush) No Longer Active 06/21/2013 [facility] Clonazepam 1 mg, 1 tab, Route: PO, Drug form: TAB, BID, Dosing Weight 62.273, kg, Start date: 06/21/13 17:00:00, Duration: 30 day, Stop date: 07/21/13 9:00:00Notes: (Same As: KlonoPIN) No Longer Active 06/21/2013 [facility] Docusate Sodium 100 MG Oral Capsule [Colace] 100 mg, 1 cap, Route: PO, Drug form: CAP, BID, Dosing Weight 62.273, kg, Start date: 06/21/13 17:00:00, Duration: 30 day, Stop date: 07/21/13 9:00:00Notes: (Same as: Colace) (Do Not Crush) No Longer Active 06/21/2013 [facility] Protonix 40 mg, 1 tab, Route: PO, Drug form: ECTAB, Before Dinner, Start date: 06/21/13 16:30:00, Duration: 30 day, Stop date: 07/20/13 16:30:00Notes: Tablet should not be chewed or crushed. (Same as: Protonix) No Longer Active 06/21/2013 [facility] Dilaudid 1 mg, 1 mL, Route: IV, Drug form: INJ, Q4H, Dosing Weight 62.273, kg, PRN Pain Score 7-10, Start date: 06/21/13 15:17:00, Duration: 30 day, Stop date: 07/21/13 15:16:00 No Longer Active 06/21/2013 [facility] simvastatin 20 mg oral tablet 20 mg=1 tab, PO, Bedtime, # 30 tab, 0 Refill(s) Active 06/21/2013 [facility] Acetaminophen 325 MG / Hydrocodone Bitartrate 7.5 MG Oral Tablet [[place] 7.5/325] 1 tab, PO, Q12H, 0 Refill(s) Active 06/21/2013 [facility] cetirizine hydrochloride 10 MG Oral Tablet [Zyrtec] 10 mg=1 tab, PO, Daily, # 30 tab, 0 Refill(s) Active 06/21/2013 [facility] Furosemide 40 MG Oral Tablet 40 mg=1 tab, PO, Daily, # 30 tab, 0 Refill(s) Active 06/21/2013 [facility] Trazodone Hydrochloride 100 MG Oral Tablet 100 mg=1 tab, PO, Bedtime, # 90 tab, 0 Refill(s) Active 06/21/2013 [facility] Esomeprazole 20 MG Enteric Coated Capsule [Nexium] 20 mg=1 cap, PO, Before Breakfast, # 30 cap, 0 Refill(s) Active 06/21/2013 [facility] metoprolol tartrate 50 mg oral tablet 50 mg=1 tab, PO, BID, # 60 tab, 0 Refill(s) Active 06/21/2013 [facility] Hydroxyzine Hydrochloride 50 MG Oral Tablet 50 mg=1 tab, PO, Bedtime, # 40 tab, 0 Refill(s) Active 06/21/2013 [facility] Morphine 4 mg, Route: IVP, Q3H, Dosing Weight 62.273, kg, PRN Pain Score 4-6, Start date: 06/21/13 11:23:00, Duration: 30 day, Stop date: 07/21/13 11:22:00 Inactive 06/21/2013 [facility] D5W 1/2NS + KCL 20mEq/L 1000ml (Premix) 1000 mL 1,000 mL, Rate: 125 ml/hr, Infuse over: 8 hr, Route: IV, Dosing Weight 62.273 kg, Total Volume: 1,000, Start date: 06/21/13 11:23:00, Duration: 30 day, Stop date: 07/21/13 11:22:00 Inactive 06/21/2013 [facility] Saline Flush 0.9% 5 ml, Route: IVP, Drug Form: INJ, Dosing Weight 62.273, kg, PRN, PRN Line Flush, Start date: 06/21/13 11:23:00, Duration: 30 day, Stop date: 07/21/13 11:22:00Notes: Same as: BD Posiflush Sterile No Longer Active 06/21/2013 [facility] Ondansetron 4 mg, Route: IVP, Q8H, Dosing Weight 62.273, kg, PRN Nausea & Vomiting, Start date: 06/21/13 11:23:00, Duration: 30 day, Stop date: 07/21/13 11:22:00 Inactive 06/21/2013 [facility] Enoxaparin 40 mg, Route: SUB-Q, Drug form: INJ, [id number], Dosing Weight 62.273, kg, Start date: 06/21/13 10:00:00, Duration: 30 day, Stop date: 07/20/13 10:00:00 Inactive 06/21/2013 [facility] Morphine 4 mg, 2 mL, Route: IVP, Drug form: INJ, Q4H, Dosing Weight 62.273, kg, PRN Pain, Start date: 06/21/13 9:01:00, Duration: 30 day, Stop date: 07/21/13 9:00:00Notes: (Same as:MORPhine Sulfate) Inactive 06/21/2013 [facility] Zofran 4 mg, 2 mL, Route: IVP, Drug form: INJ, Q8H, Dosing Weight 62.273, kg, PRN as needed for nausea/vomiting, Priority: STAT, Start date: 06/21/13 9:01:00, Duration: 30 day, Stop date: 07/21/13 9:00:00Notes: (Same as: Zofran) No Longer Active 06/21/2013 [facility] NS 1,000 mL 1,000 mL, Rate: 100 ml/hr, Infuse over: 10 hr, Route: IV, Dosing Weight 62.273 kg, Total Volume: 1,000, Start date: 06/21/13 9:01:00, Duration: 30 day, Stop date: 07/21/13 9:00:00 No Longer Active 06/21/2013 [facility] Clonidine Hydrochloride 0.1 MG Oral Tablet 0.1 mg, 1 tab, Route: PO, Drug form: TAB, Q8H, Dosing Weight 62.273, kg, PRN Elevated BP, Start date: 06/21/13 9:01:00, Duration: 30 day, Stop date: 07/21/13 9:00:00, SBP >160Notes: (Same As: Catapres) No Longer Active 06/21/2013 [facility] Morphine 4 mg, 2 mL, Route: IVP, Drug form: INJ, ONCE, Dosing Weight 62.273, kg, Priority: STAT, Start date: 06/21/13 7:14:00, Stop date: 06/21/13 7:14:00Notes: (Same as:MORPhine Sulfate) Inactive 06/21/2013 [facility] Phenergan 25 mg, Route: PO, ONCE, Dosing Weight 62.273, kg, Start date: 06/21/13 3:40:00, Stop date: 06/21/13 3:40:00 Inactive 06/21/2013 [facility] Acetaminophen 325 MG / Hydrocodone Bitartrate 5 MG Oral Tablet [[place] 5/325] 1 tab, Route: PO, Dosing Weight 62.273, kg, ONCE, Start date: 06/21/13 3:40:00, Stop date: 06/21/13 3:40:00 Inactive 06/21/2013 [facility] Zofran ODT 4 mg oral tablet, disintegrating 4 mg, 1 tab, PO, Q8H, PRN, Dissolve tab under tongue, 9 tab, Nausea and Vomiting, Substitution AllowedDissolve tab under tongue Active [place] 02/06/2013 [facility] [place] 5/325 oral tablet 1 tab, PO, Q6H, PRN, 16 tab, as needed for pain, Substitution Allowed, Maintenance Active [place] 02/06/2013 [facility] Tylenol with Codeine #3 oral tablet 1 tab, PO, Q6H, PRN, 20 tab, Pain, Substitution Allowed, Maintenance Inactive [place] 02/06/2013 [facility] acetaminophen-codeine #3 1 tab, Route: PO, Dosing Weight 61.364, kg, ONCE, STAT, Start date: 02/06/13 14:34:00, Stop date: 02/06/13 14:34:00 Inactive [place] 02/06/2013 [facility] lidocaine 1% 0.5 mL, Route: SUB-Q, Drug Form: INJ, ONCALL, Start date: 05/25/11 8:00:00, Duration: 1 doses or times SUB-Q No Longer Active [place] 05/25/2011 [facility] Levaquin 500 mg, 100 mL, Route: IVPB, Drug form: INJ, ONCE, Start date: 05/25/11 7:32:00, Stop date: 05/25/11 7:32:00 IVPB No Longer Active [place] 05/25/2011 [facility] Lactated Ringers Injection IV 1,000 mL 1,000 mL, Rate: 25 ml/hr, Infuse over: 40 hr, Route: IV, Dosing Weight 59 kg, Total Volume: 1,000, Start date: 05/25/11 7:30:00, Duration: 30 day, Stop date: 06/24/11 7:29:00 IV No Longer Active [place] 05/25/2011 [facility] Cymbalta 30 mg oral delayed release capsule 30 mg, 1 cap, PO, BID, 180 cap, Substitution Allowed, ECCAP PO Active 05/18/2011 [facility] metoprolol PO, BID, Substitution Allowed PO Active 05/18/2011 [facility] clonazepam 1 mg oral tablet 1 mg, 1 tab, PO, BID, 270 tab, Substitution Allowed, TAB PO Active 05/18/2011 [facility] Nexium 40 mg oral delayed release capsule 40 mg, 1 cap, PO, Daily, 30 cap, Substitution Allowed PO Active 05/18/2011 [facility] Cartia XT 240 mg/24 hours oral capsule, extended release 240 mg, 1 cap, PO, Daily, 30 cap, Substitution Allowed PO Active 05/18/2011 [facility] aspirin 325 mg tablet 325 mg, Route: PO, Drug form: TAB, ONCE, Priority: STAT, Start date: 12/16/10 2:08:00, Stop date: 12/16/10 2:08:00 PO No Longer Active [place] 12/16/2010 [facility] meclizine 25 mg, Route: PO, Drug form: TAB, ONCE, Priority: STAT, Start date: 12/16/10 0:33:00, Stop date: 12/16/10 0:33:00 PO No Longer Active [place] 12/16/2010 [facility] Allergies, Adverse Reactions, Alerts Substance Category Reaction Severity Reaction type Status Date Reported Comments Source erythromycin<sup>1</sup> Assertion Drug allergy Active 07/11/2012 Data migrated from [facility] on 07/10/14. Originally documented as E MYCIN. breathing, rash [facility] cephalexin<sup>2</sup> Assertion Drug allergy Active 07/11/2012 Data migrated from [employer] on 07/10/14. Originally documented as KEFLEX. Breathing, rash [facility] sulfamethoxazole-trimethoprim<sup>3</sup> Assertion Drug allergy Active 07/11/2012 Data migrated from [employer] on 07/10/14. Originally documented as BACTRIM. breathing, hives [facility] Food Pork<sup>4</sup> Assertion Drug allergy Active 07/11/2012 Data migrated from [employer] on 05/10/15. Originally documented as PORK. breathing, hives [facility] Food Strawberries<sup>5</sup> Assertion Drug allergy Active 07/11/2012 Data migrated from [employer] on 05/10/15. Originally documented as STRAWBERRIES. breathing, hives [facility] Bactrim Assertion Drug allergy Active [facility] iodine topical Assertion Drug allergy Active [facility] Keflex Assertion Drug allergy Active [facility] sulfa drugs Assertion Drug allergy Active [facility] Immunizations Immunization Date Given Site Status Last Updated Comments Source Results Order Name Results Value Reference Range Date Interpretation Comments Source Chest 1view DX Chest 1view DX Patient Name: JUDY AVERY : 1950; Age: 67 years y/o Female MR: [id number] Study: Chest 1view DX dated 03/09/2018. Clinical Indication: Chest pain Comparison: 02/05/2017 Cardiac and mediastinal structures are stable including aortic calcification. No focal infiltrate within the lungs, no edema and no pneumothorax. Prior left lateral 6th rib fracture. SL: [id number]-JORDAN 03/09/2018 - - Read by: Kalyan Gregory MD Dictated Date/time: 03/09/18 19:49 Electronically Signed by: Kalyan Gregory MD 03/09/18 19:50 FINAL REPORT [facility] CHEM PANEL eGFR 99 mL/min/1.73m2 02/06/2017 Result Comment: The eGFR is calculated using the CKD-EPI formula. In most young, healthy individuals the eGFR will be >90 mL/min/1.73m2. The eGFR declines with age. An eGFR of 60-89 may be normal in some populations, particularly the elderly, for whom the CKD-EPI formula has not been extensively validated. Use of the eGFR is not recommended in the following populations: Individuals with unstable creatinine concentrations, including patients and those with serious co-morbid conditions. Patients with extremes in muscle mass or diet. The data above are obtained from the National Kidney Disease Education Program (NKDEP) which additionally recommends that when the eGFR is used in patients with extremes of body mass index for purposes of drug dosing, the eGFR should be multiplied by the estimated BMI. [facility] CHEM PANEL AST 16 unit/L 0 - 37 02/06/2017 [facility] CHEM PANEL Alk Phos 88 unit/L 39 - 136 02/06/2017 [facility] CHEM PANEL Bili Total 0.5 mg/dL 0.2 - 1.3 02/06/2017 [facility] CHEM PANEL B/C Ratio 15 6 - 25 02/06/2017 [facility] CHEM PANEL Total Protein 5.5 g/dL 6.4 - 8.4 02/06/2017 [facility] CHEM PANEL Albumin Lvl 2.8 g/dL 3.5 - 5.0 02/06/2017 [facility] CHEM PANEL A/G Ratio 1.0 0.7 - 1.6 02/06/2017 [facility] CHEM PANEL ALT 18 unit/L 0 - 65 02/06/2017 [facility] CHEM PANEL Globulin 2.7 g/dL 2.7 - 4.2 02/06/2017 [facility] CHEM PANEL Chloride Lvl 108 meq/L 95 - 109 02/06/2017 [facility] CHEM PANEL Potassium Lvl 3.7 meq/L 3.5 - 5.1 02/06/2017 [facility] CHEM PANEL CO2 25 meq/L 24 - 32 02/06/2017 [facility] CHEM PANEL Calcium Lvl 8.1 mg/dL 8.5 - 10.5 02/06/2017 [facility] CHEM PANEL AGAP 10.7 meq/L 10.0 - 20.0 02/06/2017 [facility] CHEM PANEL Glucose Lvl 103 mg/dL 70 - 99 02/06/2017 [facility] CHEM PANEL Sodium Lvl 140 meq/L 135 - 145 02/06/2017 [facility] CHEM PANEL BUN 8 mg/dL 7 - 22 02/06/2017 [facility] CHEM PANEL Creatinine Lvl 0.55 mg/dL 0.50 - 1.40 02/06/2017 [facility] HEMATOLOGY MPV 9.2 fL 7.4 - 10.4 02/06/2017 [facility] HEMATOLOGY Platelet 85 K/CMM 133 - 450 02/06/2017 [facility] HEMATOLOGY RDW 17.3 % 11.5 - 14.5 02/06/2017 [facility] HEMATOLOGY MCHC 33.2 g/dL 32.0 - 36.0 02/06/2017 [facility] HEMATOLOGY MCH 29.3 pg 27.0 - 31.0 02/06/2017 [facility] HEMATOLOGY MCV 88.1 fL 80.0 - 98.0 02/06/2017 [facility] HEMATOLOGY Hct 33.6 % 36.0 - 48.0 02/06/2017 [facility] HEMATOLOGY RBC 3.81 M/CMM 4.20 - 5.40 02/06/2017 [facility] HEMATOLOGY Hgb 11.2 g/dL 12.0 - 16.0 02/06/2017 [facility] HEMATOLOGY WBC 5.3 K/CMM 3.7 - 10.4 02/06/2017 [facility] HEMATOLOGY Eosinophils # 0.2 K/CMM 0.0 - 0.5 02/06/2017 [facility] HEMATOLOGY Monocytes # 0.6 K/CMM 0.0 - 0.8 02/06/2017 [facility] HEMATOLOGY Lymphocytes # 0.8 K/CMM 1.0 - 5.5 02/06/2017 [facility] HEMATOLOGY Basophils 0.2 % 0.0 - 1.0 02/06/2017 [facility] HEMATOLOGY Eosinophils 3.4 % 0.0 - 4.0 02/06/2017 [facility] HEMATOLOGY Segs-Bands # 3.7 K/CMM 1.5 - 8.1 02/06/2017 [facility] HEMATOLOGY Monocytes 11.5 % 2.0 - 12.0 02/06/2017 [facility] HEMATOLOGY Lymphocytes 14.6 % 20.0 - 40.0 02/06/2017 [facility] HEMATOLOGY Segs 70.3 % 45.0 - 75.0 02/06/2017 [facility] URINE AND STOOL UA Urobilinogen <=1.0 mg/dL 0.1 - 1.0 02/06/2017 [facility] URINE AND STOOL UA WBC 2 /HPF 0 - 5 02/06/2017 [facility] URINE AND STOOL UA Sq Epi Occasional /LPF Few /LPF 02/06/2017 [facility] URINE AND STOOL UA Bili Negative *NA* (02/05/17 7:35 PM) Negative 02/06/2017 [facility] URINE AND STOOL UA Nitrite Negative (02/05/17 7:35 PM) Negative 02/06/2017 [facility] URINE AND STOOL UA Ketones Trace mg/dL Negative mg/dL 02/06/2017 [facility] URINE AND STOOL UA Blood Negative (02/05/17 7:35 PM) Negative 02/06/2017 [facility] URINE AND STOOL UA Glucose Negative mg/dL Negative mg/dL 02/06/2017 [facility] URINE AND STOOL UA pH 7.0 5.0 - 8.0 02/06/2017 [facility] URINE AND STOOL UA Spec Grav 1.015 <=1.030 02/06/2017 [facility] URINE AND STOOL UA Protein Negative mg/dL Negative mg/dL 02/06/2017 [facility] URINE AND STOOL UA Turbidity Clear (02/05/17 7:35 PM) Clear 02/06/2017 [facility] URINE AND STOOL UA Color Yellow *NA* (02/05/17 7:35 PM) Yellow 02/06/2017 [facility] URINE AND STOOL UA Leuk Est Trace *ABN* (02/05/17 7:35 PM) Negative 02/06/2017 [facility] URINE AND STOOL UA RBC null 0 - 2 02/06/2017 [facility] CARDIAC ENZYMES CK MB Index null 0.0 - 2.5 02/05/2017 [facility] CARDIAC ENZYMES Troponin-I null 0.00 - 0.40 02/05/2017 [facility] CARDIAC ENZYMES Total CK 16 unit/L 12 - 191 02/05/2017 [facility] CARDIAC ENZYMES CK MB null 0.5 - 3.6 02/05/2017 [facility] CHEM PANEL Magnesium Lvl 2.2 mg/dL 1.8 - 2.4 02/05/2017 [facility] CHEM PANEL eGFR 96 mL/min/1.73m2 02/05/2017 Result Comment: The eGFR is calculated using the CKD-EPI formula. In most young, healthy individuals the eGFR will be >90 mL/min/1.73m2. The eGFR declines with age. An eGFR of 60-89 may be normal in some populations, particularly the elderly, for whom the CKD-EPI formula has not been extensively validated. Use of the eGFR is not recommended in the following populations: Individuals with unstable creatinine concentrations, including patients and those with serious co-morbid conditions. Patients with extremes in muscle mass or diet. The data above are obtained from the National Kidney Disease Education Program (NKDEP) which additionally recommends that when the eGFR is used in patients with extremes of body mass index for purposes of drug dosing, the eGFR should be multiplied by the estimated BMI. [facility] CHEM PANEL Sodium Lvl 138 meq/L 135 - 145 02/05/2017 [facility] CHEM PANEL Chloride Lvl 101 meq/L 95 - 109 02/05/2017 [facility] CHEM PANEL CO2 30 meq/L 24 - 32 02/05/2017 [facility] CHEM PANEL Calcium Lvl 9.2 mg/dL 8.5 - 10.5 02/05/2017 [facility] CHEM PANEL Glucose Lvl 138 mg/dL 70 - 99 02/05/2017 [facility] CHEM PANEL BUN 11 mg/dL 7 - 22 02/05/2017 [facility] CHEM PANEL Creatinine Lvl 0.60 mg/dL 0.50 - 1.40 02/05/2017 [facility] CHEM PANEL Potassium Lvl 3.9 meq/L 3.5 - 5.1 02/05/2017 [facility] CHEM PANEL Total Protein 7.1 g/dL 6.4 - 8.4 02/05/2017 [facility] CHEM PANEL Albumin Lvl 3.7 g/dL 3.5 - 5.0 02/05/2017 [facility] CHEM PANEL ALT 24 unit/L 0 - 65 02/05/2017 [facility] CHEM PANEL Globulin 3.4 g/dL 2.7 - 4.2 02/05/2017 [facility] CHEM PANEL AST 18 unit/L 0 - 37 02/05/2017 [facility] CHEM PANEL Alk Phos 117 unit/L 39 - 136 02/05/2017 [facility] CHEM PANEL Bili Total 0.5 mg/dL 0.2 - 1.3 02/05/2017 [facility] CHEM PANEL AGAP 10.9 meq/L 10.0 - 20.0 02/05/2017 [facility] CHEM PANEL B/C Ratio 18 6 - 25 02/05/2017 [facility] CHEM PANEL A/G Ratio 1.1 0.7 - 1.6 02/05/2017 [facility] HEMATOLOGY Segs 75.8 % 45.0 - 75.0 02/05/2017 [facility] HEMATOLOGY Lymphocytes 11.6 % 20.0 - 40.0 02/05/2017 [facility] HEMATOLOGY Monocytes 9.4 % 2.0 - 12.0 02/05/2017 [facility] HEMATOLOGY Basophils 0.1 % 0.0 - 1.0 02/05/2017 [facility] HEMATOLOGY Eosinophils 3.1 % 0.0 - 4.0 02/05/2017 [facility] HEMATOLOGY Segs-Bands # 4.7 K/CMM 1.5 - 8.1 02/05/2017 [facility] HEMATOLOGY Eosinophils # 0.2 K/CMM 0.0 - 0.5 02/05/2017 [facility] HEMATOLOGY Lymphocytes # 0.7 K/CMM 1.0 - 5.5 02/05/[address] [facility] Monocytes # 0.6 K/CMM 0.0 - 0.8 02/05/[address] [facility] WBC 6.2 K/CMM 3.7 - 10.4 02/05/[address] [facility] MCH 29.5 pg 27.0 - 31.0 02/05/[address] [facility] MCV 87.7 fL 80.0 - 98.0 02/05/[address] [facility] Hct 39.7 % 36.0 - 48.0 02/05/[address] [facility] Hgb 13.4 g/dL 12.0 - 16.0 02/05/[address] [facility] RBC 4.53 M/CMM 4.20 - 5.40 02/05/[address] [facility] MCHC 33.7 g/dL 32.0 - 36.0 02/05/[address] [facility] MPV 9.7 fL 7.4 - 10.4 02/05/[address] [facility] Platelet 105 K/CMM 133 - 450 02/05/[address] [facility] RDW 17.1 % 11.5 - 14.5 02/05/2017 [facility] ED Abdomen/Pelvis IV contrast only CT ED Abdomen/Pelvis IV contrast only CT Clinical Indication: Abdominal pain and vomiting with PEG tube Comparison: 12/22/2012 TECHNIQUE: Helical imaging was performed after injection of IV contrast, from the diaphragm through the symphysis with multiplanar reformations obtained. IV CONTRAST: 100 mL of Omnipaque GI CONTRAST: No oral contrast was administered. DLP: 1925.05 mGy-cm FINDINGS: LOWER CHEST: There is bibasilar atelectasis. LIVER: The liver parenchyma is normal in appearance without masses or intrahepatic biliary ductal dilatation. The portal vein is normal in caliber. BILIARY TREE: The common bile duct is normal in caliber without evidence of filling defects. GALLBLADDER: The gallbladder is unremarkable, there is no evidence of cholelithiasis or cholecystitis. PANCREAS: The pancreas is unremarkable. The pancreatic duct is normal in caliber. SPLEEN: The spleen is normal in size and there are no parenchymal abnormalities. ADRENALS: The right adrenal gland is unremarkable. The left adrenal gland is unremarkable. KIDNEYS: The kidneys demonstrates normal contrast enhancement. There are no masses. There is no evidence of renal or ureteral calculi. There is no evidence of hydronephrosis. There is a simple appearing cyst within the right kidney. BOWEL: The visualized portion of the esophagus is unremarkable. Peg tube terminates within the stomach. The small bowel is normal in caliber and there is no evidence of masses or obstruction. The colon is normal in caliber, there are no masses, there is no evidence of diverticulosis or diverticulitis. APPENDIX: The appendix is unremarkable. PELVIS: There are no pelvic masses. The urinary bladder is unremarkable. PERITONEUM: There is no evidence for free intraperitoneal fluid or air. SOFT TISSUES: The soft tissues are unremarkable. There is no evidence of masses or hernias. LYMPH NODES: There is no evidence of mesenteric, retroperitoneal, or inguinal lymphadenopathy. VASCULATURE: The abdominal aorta is normal in caliber. The branches of the abdominal aorta are widely patent. 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 There is mild compression deformity superior endplate of T12 with 30% loss in vertebral body height. IMPRESSION: 1. No acute findings. 2. PEG tube with expected positioning. SL: [id number] 02/05/2017 - - Read by: Nava Armendariz MD Dictated Date/time: 02/05/17 20:30 Electronically Signed by: Nava Armendariz MD 02/05/17 20:33 FINAL REPORT [facility] Chest 1view DX Chest 1view DX Clinical Indication: - dizziness Comparison: 05/18/2011 FINDINGS: AP chest radiograph was obtained. MEDIASTINUM: The cardiac silhouette is normal in size. The aorta is unremarkable. LUNGS: Lung volumes are maintained. There are no focal infiltrates or effusions. There are no pneumothoraces noted. BONES: The visualized osseous structures are unremarkable. IMPRESSION: No acute infiltrates or effusions. SL: [id number] 02/05/2017 - - Read by: Nava Armendariz MD Dictated Date/time: 02/05/17 17:20 Electronically Signed by: Nava Armendariz MD 02/05/17 17:21 FINAL REPORT [facility] HEMATOLOGY Basophils # 0.0 K/CMM 0.0 - 0.2 06/26/[address] [facility] Monocytes 10.9 % 2.0 - 12.0 06/26/[address] [facility] Eosinophils # 0.5 K/CMM 0.0 - 0.5 06/26/[address] [facility] Segs-Bands # 3.9 K/CMM 1.5 - 8.1 06/26/2013 [facility] HEMATOLOGY Monocytes # 0.8 K/CMM 0.0 - 0.8 06/26/2013 [facility] HEMATOLOGY Lymphocytes # 1.9 K/CMM 1.0 - 5.5 06/26/2013 [facility] HEMATOLOGY Segs 55.3 % 45.0 - 75.0 06/26/2013 [facility] HEMATOLOGY Eosinophils 6.8 % 0.0 - 4.0 06/26/2013 [facility] HEMATOLOGY Lymphocytes 26.6 % 20.0 - 40.0 06/26/2013 [facility] HEMATOLOGY Basophils 0.4 % 0.0 - 1.0 06/26/[address] [facility] MPV 8.5 fL 7.4 - 10.4 06/26/[address] [facility] Platelet 153 K/CMM 133 - 450 06/26/[address] [facility] RDW 13.4 % 11.5 - 14.5 06/26/[address] [facility] RBC 3.50 M/CMM 4.20 - 5.40 06/26/[address] [facility] MCHC 34.5 g/dL 32.0 - 36.0 06/26/[address] [facility] MCH 30.4 pg 27.0 - 31.0 06/26/[address] [facility] MCV 88.3 fL 81.0 - 99.0 06/26/[address] [facility] Hct 30.9 % 36.0 - 48.0 06/26/[address] [facility] Hgb 10.6 g/dL 12.0 - 16.0 06/26/[address] [facility] WBC 7.1 K/CMM 3.7 - 10.4 06/26/2013 [facility] URINE AND STOOL UA CaOx Candi Occasional /HPF None Seen /HPF 06/24/2013 [facility] URINE AND STOOL UA Color Ltyellow 06/24/2013 [facility] URINE AND STOOL UA Urobilinogen <=1.0 mg/dL 0.1 - 1.0 06/24/2013 [facility] URINE AND STOOL UA Spec Grav 1.009 <=1.030 06/24/2013 [facility] URINE AND STOOL UA Ketones Negative mg/dL Negative mg/dL 06/24/2013 [facility] URINE AND STOOL UA pH 6.0 5.0 - 8.0 06/24/2013 [facility] URINE AND STOOL UA Glucose Negative mg/dL Negative mg/dL 06/24/2013 [facility] URINE AND STOOL UA Protein Negative mg/dL Negative mg/dL 06/24/2013 [facility] URINE AND STOOL UA Turbidity Clear (06/24/13 7:42 AM) Clear 06/24/2013 [facility] URINE AND STOOL UA Sq Epi Occasional /LPF Few /LPF 06/24/2013 [facility] URINE AND STOOL UA Blood Negative (06/24/13 7:42 AM) Negative 06/24/2013 [facility] URINE AND STOOL UA Mucus Few /LPF None Seen /LPF 06/24/2013 [facility] URINE AND STOOL UA RBC 1 /HPF 0 - 2 06/24/2013 [facility] URINE AND STOOL UA Leuk Est Negative (06/24/13 7:42 AM) Negative 06/24/2013 [facility] URINE AND STOOL UA Nitrite Negative (06/24/13 7:42 AM) Negative 06/24/2013 [facility] URINE AND STOOL UA Bili Negative *NA* (06/24/13 7:42 AM) Negative 06/24/2013 [facility] URINE AND STOOL UA WBC 1 /HPF 0 - 5 06/24/2013 [facility] CHEM PANEL eGFR 93 mL/min/1.73m2 06/23/2013 1Result Comment: The eGFR is calculated using the CKD-EPI formula. In most young, healthy individuals the eGFR will be >90 mL/min/1.73m2. The eGFR declines with age. An eGFR of 60-89 may be normal in some populations, particularly the elderly, for whom the CKD-EPI formula has not been extensively validated. Use of the eGFR is not recommended in the following populations: Individuals with unstable creatinine concentrations, including patients and those with serious co-morbid conditions. Patients with extremes in muscle mass or diet. The data above are obtained from the National Kidney Disease Education Program (NKDEP) which additionally recommends that when the eGFR is used in patients with extremes of body mass index for purposes of drug dosing, the eGFR should be multiplied by the estimated BMI. [facility] CHEM PANEL Sodium Lvl 140 meq/L 135 - 145 06/23/2013 [facility] CHEM PANEL Creatinine Lvl 0.7 mg/dL 0.5 - 1.4 06/23/2013 [facility] CHEM PANEL Chloride Lvl 104 meq/L 95 - 109 06/23/2013 [facility] CHEM PANEL Potassium Lvl 3.7 meq/L 3.5 - 5.1 06/23/2013 [facility] CHEM PANEL Calcium Lvl 8.2 mg/dL 8.5 - 10.5 06/23/2013 [facility] CHEM PANEL CO2 30 meq/L 24 - 32 06/23/2013 [facility] CHEM PANEL Glucose Lvl 108 mg/dL 70 - 99 06/23/2013 4Interpretive Data: Adult reference range values reflect the clinical guidelines of the [place] [employer]. [facility] CHEM PANEL BUN 9 mg/dL 7 - 22 06/23/2013 [facility] CHEM PANEL AGAP 9.7 meq/L 10.0 - 20.0 06/23/2013 [facility] HEMATOLOGY Basophils # 0.0 K/CMM 0.0 - 0.2 06/23/[address] [facility] Elliptocyte Slight *ABN* (06/23/13 5:32 AM) None Seen 06/23/[address] [facility] Segs 74.7 % 45.0 - 75.0 06/23/[address] [facility] Segs-Bands # 8.5 K/CMM 1.5 - 8.1 06/23/[address] [facility] Lymphocytes # 1.7 K/CMM 1.0 - 5.5 06/23/[address] [facility] Monocytes # 0.7 K/CMM 0.0 - 0.8 06/23/[address] [facility] Eosinophils # 0.4 K/CMM 0.0 - 0.5 06/23/[address] [facility] Lymphocytes 14.7 % 20.0 - 40.0 06/23/[address] [facility] Monocytes 6.5 % 2.0 - 12.0 06/23/[address] [facility] Eosinophils 3.9 % 0.0 - 4.0 06/23/[address] [facility] Plt Morph Normal (06/23/13 5:32 AM) 06/23/[address] [facility] Basophils 0.2 % 0.0 - 1.0 06/23/[address] [facility] MPV 9.4 fL 7.4 - 10.4 06/23/[address] [facility] MCV 88.1 fL 81.0 - 99.0 06/23/[address] [facility] Hgb 11.3 g/dL 12.0 - 16.0 06/23/[address] [facility] RBC 3.75 M/CMM 4.20 - 5.40 06/23/[address] [facility] Hct 33.1 % 36.0 - 48.0 06/23/[address] [facility] MCH 30.0 pg 27.0 - 31.0 06/23/[address] [facility] MCHC 34.1 g/dL 32.0 - 36.0 06/23/[address] [facility] RDW 13.3 % 11.5 - 14.5 06/23/[address] [facility] Platelet 143 K/CMM 133 - 450 06/23/[address] [facility] WBC 11.3 K/CMM 3.7 - 10.4 06/23/2013 [facility] CHEM PANEL Glucose Lvl 116 mg/dL 70 - 99 06/22/2013 5Interpretive Data: Adult reference range values reflect the clinical guidelines of the [place] [employer]. [facility] CHEM PANEL Sodium Lvl 140 meq/L 135 - 145 06/22/2013 [facility] CHEM PANEL Creatinine Lvl 0.7 mg/dL 0.5 - 1.4 06/22/2013 [facility] CHEM PANEL BUN 8 mg/dL 7 - 22 06/22/2013 [facility] CHEM PANEL eGFR 93 mL/min/1.73m2 06/22/2013 2Result Comment: The eGFR is calculated using the CKD-EPI formula. In most young, healthy individuals the eGFR will be >90 mL/min/1.73m2. The eGFR declines with age. An eGFR of 60-89 may be normal in some populations, particularly the elderly, for whom the CKD-EPI formula has not been extensively validated. Use of the eGFR is not recommended in the following populations: Individuals with unstable creatinine concentrations, including patients and those with serious co-morbid conditions. Patients with extremes in muscle mass or diet. The data above are obtained from the National Kidney Disease Education Program (NKDEP) which additionally recommends that when the eGFR is used in patients with extremes of body mass index for purposes of drug dosing, the eGFR should be multiplied by the estimated BMI. [facility] CHEM PANEL AGAP 8.9 meq/L 10.0 - 20.0 06/22/2013 [facility] CHEM PANEL CO2 30 meq/L 24 - 32 06/22/2013 [facility] CHEM PANEL Calcium Lvl 8.2 mg/dL 8.5 - 10.5 06/22/2013 [facility] CHEM PANEL Chloride Lvl 105 meq/L 95 - 109 06/22/2013 [facility] CHEM PANEL Potassium Lvl 3.9 meq/L 3.5 - 5.1 06/22/2013 [facility] HEMATOLOGY Eosinophils # 0.2 K/CMM 0.0 - 0.5 06/22/2013 [facility] HEMATOLOGY Basophils # 0.0 K/CMM 0.0 - 0.2 06/22/2013 [facility] HEMATOLOGY Segs-Bands # 8.9 K/CMM 1.5 - 8.1 06/22/2013 [facility] HEMATOLOGY Lymphocytes # 1.5 K/CMM 1.0 - 5.5 06/22/2013 [facility] HEMATOLOGY Monocytes # 0.8 K/CMM 0.0 - 0.8 06/22/2013 [facility] HEMATOLOGY Basophils 0.2 % 0.0 - 1.0 06/22/2013 [facility] HEMATOLOGY Segs 78.3 % 45.0 - 75.0 06/22/[address] [facility] Eosinophils 1.8 % 0.0 - 4.0 06/22/[address] [facility] Monocytes 6.8 % 2.0 - 12.0 06/22/[address] [facility] Lymphocytes 12.9 % 20.0 - 40.0 06/22/[address] [facility] RDW 13.7 % 11.5 - 14.5 06/22/[address] [facility] MPV 9.0 fL 7.4 - 10.4 06/22/[address] [facility] MCV 89.8 fL 81.0 - 99.0 06/22/[address] [facility] Platelet 137 K/CMM 133 - 450 06/22/[address] [facility] MCHC 33.6 g/dL 32.0 - 36.0 06/22/[address] [facility] RBC 3.74 M/CMM 4.20 - 5.40 06/22/[address] [facility] WBC 11.4 K/CMM 3.7 - 10.4 06/22/[address] [facility] MCH 30.2 pg 27.0 - 31.0 06/22/[address] [facility] Hct 33.6 % 36.0 - 48.0 06/22/[address] [facility] Hgb 11.3 g/dL 12.0 - 16.0 06/22/[address] [facility] PTT 35.3 s 22.9 - 35.8 06/22/2013 9Interpretive Data: Heparin Therapeutic Range: 57 - [address] [facility] INR 1.06 0.85 - 1.17 06/22/2013 7Interpretive Data: RECOMMENDED RANGES FOR PROTIME INR: 2.0-3.0 for most medical and surgical thromboembolic states. 2.5-3.5 for artificial heart valves and recurrent embolism. INR SHOULD BE USED ONLY FOR PATIENTS ON STABLE ANTICOAGULANT THERAPY. [facility] HEMATOLOGY PT 13.7 s 12.0 - 14.7 06/22/2013 [facility] HEMATOLOGY Platelet 140 K/CMM 133 - 450 06/22/2013 [facility] Hip min 2 views Hip min 2 views LEFT HIP INTRAOPERATIVE. HISTORY: Left femoral neck fracture. COMMENT: Two intraoperative C-arm digital images of the left hip were obtained following open reduction and internal fixation. These include frontal and lateral images. The preoperative study from today was reviewed. It is indicated the fluoroscopy time was one minute and 41 seconds. FINDINGS: The images demonstrate fixation of the left femoral neck fracture with 3 hip screws. The screws appear to be in good position. There is near anatomic position of the bony fragments. There is slight impaction and minimal lateral displacement of the femoral head in relation to the remainder the femoral neck. Overall, there is an excellent postoperative appearance. SL: 16 Nikita Recinos M.D. 06/21/2013 - - Read by: Nikita Recinos Dictated Date/time: 06/22/13 09:10 Electronically Signed by: Nikita Recinos MD 06/22/13 09:15 FINAL REPORT [facility] BLOOD BANK RESULTS ABO/Rh O POS 06/21/2013 [facility] BLOOD [facility] RESULTS Antibody Scrn Negative (06/21/13 8:45 AM) 06/21/2013 [facility] HEMATOLOGY PTT 29.5 s 22.9 - 35.8 06/21/2013 10Interpretive Data: Heparin Therapeutic Range: 57 - 92 Seconds [facility] ELECTROLYTES AGAP 8.5 meq/L 10.0 - 20.0 06/21/2013 [facility] ELECTROLYTES eGFR 54 mL/min/1.73m2 06/21/2013 3Result Comment: The eGFR is calculated using the CKD-EPI formula. In most young, healthy individuals the eGFR will be >90 mL/min/1.73m2. The eGFR declines with age. An eGFR of 60-89 may be normal in some populations, particularly the elderly, for whom the CKD-EPI formula has not been extensively validated. Use of the eGFR is not recommended in the following populations: Individuals with unstable creatinine concentrations, including patients and those with serious co-morbid conditions. Patients with extremes in muscle mass or diet. The data above are obtained from the National Kidney Disease Education Program (NKDEP) which additionally recommends that when the eGFR is used in patients with extremes of body mass index for purposes of drug dosing, the eGFR should be multiplied by the estimated BMI. [facility] ELECTROLYTES CO2 31 meq/L 24 - 32 06/21/2013 [facility] ELECTROLYTES Calcium Lvl 9.0 mg/dL 8.5 - 10.5 06/21/2013 [facility] ELECTROLYTES Sodium Lvl 141 meq/L 135 - 145 06/21/2013 [facility] ELECTROLYTES Chloride Lvl 105 meq/L 95 - 109 06/21/2013 [facility] ELECTROLYTES Potassium Lvl 3.5 meq/L 3.5 - 5.1 06/21/2013 [facility] ELECTROLYTES BUN 14 mg/dL 7 - 22 06/21/2013 [facility] ELECTROLYTES Creatinine Lvl 1.1 mg/dL 0.5 - 1.4 06/21/2013 [facility] ELECTROLYTES Glucose Lvl 158 mg/dL 70 - 99 06/21/2013 6Interpretive Data: Adult reference range values reflect the clinical guidelines of the [place] [employer]. [facility] HEMATOLOGY PT 13.4 s 12.0 - 14.7 06/21/[address] [facility] PTT 29.7 s 22.9 - 35.8 06/21/2013 11Interpretive Data: Heparin Therapeutic Range: 57 - 92 Seconds [facility] HEMATOLOGY INR 1.03 0.85 - 1.17 06/21/2013 8Interpretive Data: RECOMMENDED RANGES FOR PROTIME INR: 2.0-3.0 for most medical and surgical thromboembolic states. 2.5-3.5 for artificial heart valves and recurrent embolism. INR SHOULD BE USED ONLY FOR PATIENTS ON STABLE ANTICOAGULANT THERAPY. [facility] HEMATOLOGY Plt Morph Normal (06/21/13 4:18 AM) 06/21/[address] [facility] RBC Morph Normal (06/21/13 4:18 AM) 06/21/2013 [facility] Hip bilateral w pelvis and both lat hips Hip bilateral w pelvis and both lat hips PROCEDURE: Hip bilateral w pelvis and both lat hips REASON FOR EXAM: s/p fall CLINICAL INFORMATION pain COMPARISON: 05/25/2011. Five views There is a nondisplaced left femoral neck fracture with medial angulation. There is right hip replacement which appears in anatomic alignment. The pubic rami, pubic symphysis are preserved. The bilateral femoral acetabular joints are preserved. There is mild fecal impaction. SL: 06/21/2013 - - Read by: Dante Richter Dictated Date/time: 06/21/13 04:40 Electronically Signed by: Dante Richter MD 06/21/13 04:41 FINAL REPORT [facility] Brain wo contrast CT Brain wo contrast CT PROCEDURE: Brain wo contrast CT REASON FOR EXAM: See Clinic Indication CLINICAL INDICATION: fall COMPARISON: 12/16/2010. FINDINGS: There is diffuse volume loss with corresponding prominence of the ventricles and sulci. There are microangiopathic changes of the white matter. There is no hemorrhage, mass or midline shift. There is bilateral carotid siphon calcification. Small lacunae in the inferior right william is of undetermined age. IMPRESSION: 1. Chronic changes as described above, no acute intracranial process. 2. No evidence for hemorrhage, mass lesion or acute infarct. 3. Small lacuna in the inferior right william is of undetermined age. Consider a MRI of the brain if indicated. These findings are discussed with Dr. Hughes at 3:59 a.m. SL: 06/21/2013 - - Read by: Dante Richter Dictated Date/time: 06/21/13 03:53 Electronically Signed by: Dante Richter MD 06/21/13 03:58 FINAL REPORT [facility] Spine cervical wo contrast CT Spine cervical wo contrast CT PROCEDURE: Spine cervical wo contrast CT REASON FOR EXAM: See Clinic Indication CLINICAL INFORMATION pain s/p fall COMPARISON: None. The cervical spine alignment, vertebral body heights are preserved. There is disc height loss greatest at C5-C6 and C6-C7 with anterior spurring. There is normal C1-C2 relation. Axial images demonstrates no displaced fracture or aggressive osseous process. There is mild to moderate facet arthritic change. There are small bilateral cervical lymph nodes. IMPRESSION: 1. Mild cervical spondylosis spanning C5, C6. 2. Small bilateral cervical lymph nodes which are nonspecific. SL: 06/21/2013 - - Read by: Dante Richter Dictated Date/time: 06/21/13 04:09 Electronically Signed by: Dante Richter MD 06/21/13 04:12 FINAL REPORT [facility] Foot series Foot series Left foot series 3 views. FINDINGS: Evaluation of the second through fifth digits is somewhat limited due to hyperflexion and resulting overlap of the bony structures. Otherwise, no evidence for fracture, subluxation or any significant soft tissue abnormality. SL:13 02/06/2013 - - Read by: Rafal Mcfarland Dictated Date/time: 02/06/13 15:10 Electronically Signed by: Rafal Mcfarland MD 02/06/13 15:12 FINAL REPORT [facility] Abdomen/Pelvis wo contrast CT Abdomen/Pelvis wo contrast CT PROCEDURE: Abdomen/Pelvis wo contrast CT REASON FOR EXAM: See Clinic Indication CLINICAL INFORMATION STONE PROTOCOL COMPARISON: 11/2010. 07/2010. 02/2010. ABDOMEN without IV contrast: There is atheromatous aortic calcification, no aneurysm. The noncontrast evaluation of the inferior liver, spleen, adrenal glands, pancreas are unremarkable. There is a small hiatal hernia. Small gallstones are questioned. Right lower pole renal stone was described on the prior CAT scan measuring 8 to 9 mm and 1076 Hounsfield units. Right upper pole renal calculus is no longer visualized. No left renal calculus is noted. Low-density right upper pole renal lesion is incompletely evaluated without IV contrast measuring 3.7 Hounsfield units, low in probability of being clinically significant. PELVIS without IV contrast: There is no ureterolithiasis. The bladder is underdistended. The small bowel caliber is normal. No free fluid or inflammatory change is identified in the lower pelvis. There is chronic Schmorl's node formation of the superior T12 and plate. The uterus appears surgically absent. IMPRESSION: 1. Right nephrolithiasis, no ureterolithiasis. 2. Probable cholelithiasis. 3. Small hiatal hernia. 4. Chronic Schmorl's node formation of the superior T12 end plate. SL: 13 12/22/2012 - - Read by: Dante Richter Dictated Date/time: 12/22/12 14:45 Electronically Signed by: Dante Richter MD 12/22/12 14:51 FINAL REPORT [facility] CHEMISTRY Calcium Lvl 8.5 mg/dL 8.5 - 10.5 05/18/2011 Normal [facility] CHEMISTRY CO2 29 meq/L 24 - 32 05/18/2011 Normal [facility] CHEMISTRY Sodium Lvl 143 meq/L 135 - 145 05/18/2011 Normal [facility] CHEMISTRY Chloride Lvl 106 meq/L 95 - 109 05/18/2011 Normal [facility] CHEMISTRY Potassium Lvl 4.2 meq/L 3.5 - 5.1 05/18/2011 Normal [facility] CHEMISTRY BUN 10 mg/dL 7 - 22 05/18/2011 Normal [facility] CHEMISTRY Creatinine Lvl 0.8 mg/dL 0.5 - 1.4 05/18/2011 Normal [facility] CHEMISTRY Glucose Lvl 100 mg/dL 05/18/2011 NA 1Interpretive Data: Reference Ranges : 0 - 7 days : 41 - 90 mg/dL7 days - 150 yrs : 70 - 99 mg/dL (fasting), based on the clinical recommendations of the [place] [employer]. [facility] CHEMISTRY AGAP 12.2 meq/L 10.0 - 20.0 05/18/2011 Normal [facility] HEMATOLOGY Platelet 179 K/CMM 133 - 450 05/18/2011 Normal [facility] HEMATOLOGY MPV 9.1 fL 7.4 - 10.4 05/18/2011 Normal [facility] HEMATOLOGY RDW 14.1 % 11.5 - 14.5 05/18/2011 Normal [facility] HEMATOLOGY MCV 89.6 fL 81.0 - 99.0 05/18/2011 Normal [facility] HEMATOLOGY Hct 38.7 % 36.0 - 48.0 05/18/2011 Normal [facility] HEMATOLOGY MCHC 33.4 g/dL 32.0 - 36.0 05/18/2011 Normal [facility] HEMATOLOGY MCH 29.9 pg 27.0 - 31.0 05/18/2011 Normal [facility] HEMATOLOGY WBC 10.5 K/CMM 3.7 - 10.4 05/18/2011 HI [facility] HEMATOLOGY Hgb 12.9 g/dL 12.0 - 16.0 05/18/2011 Normal [facility] HEMATOLOGY RBC 4.32 M/CMM 4.20 - 5.40 05/18/2011 Normal [facility] HEMATOLOGY Lymphocytes 27.1 % 20.0 - 40.0 05/18/2011 Normal [facility] HEMATOLOGY Eosinophils 1.2 % 0.0 - 4.0 05/18/2011 Normal [facility] HEMATOLOGY Segs 64.0 % 45.0 - 75.0 05/18/2011 Normal [facility] HEMATOLOGY Segs-Bands # 6.7 K/CMM 1.5 - 8.1 05/18/2011 Normal [facility] HEMATOLOGY Monocytes 7.4 % 2.0 - 12.0 05/18/2011 Normal [facility] HEMATOLOGY Basophils 0.3 % 0.0 - 1.0 05/18/2011 Normal [facility] HEMATOLOGY Monocytes # 0.8 K/CMM 0.0 - 0.8 05/18/2011 Normal [facility] HEMATOLOGY Basophils # 0.0 K/CMM 0.0 - 0.2 05/18/2011 Normal [facility] HEMATOLOGY Lymphocytes # 2.8 K/CMM 1.0 - 5.5 05/18/2011 Normal [facility] HEMATOLOGY Eosinophils # 0.1 K/CMM 0.0 - 0.5 05/18/2011 Normal [facility]YS[facility] UA Ketones Trace *ABN* (12/15/2010 23:23:00) ?? >Negative 12/16/2010 ABN [facility] UA Glucose Negative (12/15/2010 23:23:00) ?? >Negative 12/16/2010 Normal [facility] UA Bili Negative (12/15/2010 23:23:00) ?? >Negative 12/16/2010 Normal [facility] UA Color Yellow *NA* (12/15/2010 23:23:00) ?? >Yellow 12/16/2010 NA [facility] UA pH 5.5 5.0 - 8.0 12/16/2010 Normal [facility] UA Spec Grav >=1.030 *ABN* (12/15/2010 23:23:00) ?? <<=1.030 12/16/2010 ABN [facility] UA Turbidity Cloudy *ABN* (12/15/2010 23:23:00) ?? >Clear 12/16/2010 ABN [facility] UA Protein 100 mg/dL *ABN* (12/15/2010 23:23:00) ?? >Negative 12/16/2010 ABN [facility] UA Leuk Est Trace *ABN* (12/15/2010 23:23:00) ?? >Negative 12/16/2010 ABN [facility] UA Nitrite Negative (12/15/2010 23:23:00) ?? >Negative 12/16/2010 Normal [facility] UA Urobilinogen 0.2 EU/dL 0.1 - 1.0 12/16/2010 Normal [facility] UA Blood Large *ABN* (12/15/2010 23:23:00) ?? >Negative 12/16/2010 ABN [facility] URINALYSIS Micro? Performed (12/15/2010 23:23:00) ?? 12/16/2010 Normal [facility] URINALYSIS UA Bacteria Few /HPF (12/15/2010 23:23:00) ?? >None Seen 12/16/2010 Normal [facility] URINALYSIS UA RBC >100 /HPF *ABN* (12/15/2010 23:23:00) ?? >0 - 2 12/16/2010 ABN [facility] URINALYSIS UA WBC 3-5 /HPF (12/15/2010 23:23:00) ?? >None Seen 12/16/2010 Normal [facility] URINALYSIS UA Sq Epi Occasional /LPF (12/15/2010 23:23:00) ?? >Few 12/16/2010 Normal [facility] URINALYSIS UA Mucus Few /LPF (12/15/2010 23:23:00) ?? >None Seen 12/16/2010 Normal [facility] URINALYSIS UA CaOx Candi Rare /HPF (12/15/2010 23:23:00) ?? >None Seen 12/16/2010 Normal [facility] Microbiology Culture: Urine 12/16/2010 [facility] CHEMISTRY A/G Ratio 1.1 0.7 - 1.6 12/16/2010 Normal [facility] CHEMISTRY Globulin 3.2 g/dL 2.0 - 4.0 12/16/2010 Normal [facility] CHEMISTRY B/C Ratio 12.0 6 - 25 12/16/2010 Normal [facility] CHEMISTRY AGAP 11.1 meq/L 10.0 - 20.0 12/16/2010 Normal [facility] CHEMISTRY ALT 18.0 U/L 0 - 65 12/16/2010 Normal [facility] CHEMISTRY Albumin Lvl 3.6 g/dL 3.5 - 5.0 12/16/2010 Normal [facility] CHEMISTRY Bili Total 0.2 mg/dL 0.2 - 1.3 12/16/2010 Normal [facility] CHEMISTRY Alk Phos 92.0 U/L 39 - 136 12/16/2010 Normal [facility] CHEMISTRY Total Protein 6.8 g/dL 6.4 - 8.4 12/16/2010 Normal [facility] CHEMISTRY Calcium Lvl 8.5 mg/dL 8.5 - 10.5 12/16/2010 Normal [facility] CHEMISTRY CO2 27.0 meq/L 24 - 32 12/16/2010 Normal [facility] CHEMISTRY Potassium Lvl 4.1 meq/L 3.5 - 5.1 12/16/2010 Normal [facility] CHEMISTRY Sodium Lvl 138.0 meq/L 135 - 145 12/16/2010 Normal [facility] CHEMISTRY Chloride Lvl 104.0 meq/L 95 - 109 12/16/2010 Normal [facility] CHEMISTRY AST 4.0 U/L 0 - 37 12/16/2010 Normal [facility] [facility] CHEMISTRY Creatinine Lvl 1.1 mg/dL 0.5 - 1.4 12/16/2010 Normal [facility] CHEMISTRY BUN 13.0 mg/dL 7 - 22 12/16/2010 Normal [facility] CHEMISTRY Glucose Lvl 205.0 mg/dL 12/16/2010 NA 1Interpretive Data: Reference Ranges : 0 - 7 days : 41 - 90 mg/dL7 days - 150 yrs : 70 - 99 mg/dL (fasting), based on the clinical recommendations of the [place] [employer]. [facility] HEMATOLOGY Sed Rate 6.0 mm/h 0 - 20 12/16/2010 Normal [facility] HEMATOLOGY Eosinophils # 0.1 K/CMM 0.0 - 0.5 12/16/2010 Normal [facility] HEMATOLOGY Segs-Bands # 9.9 K/CMM 1.5 - 8.1 12/16/2010 HI [facility] HEMATOLOGY Lymphocytes # 2.4 K/CMM 1.0 - 5.5 12/16/2010 Normal [facility] HEMATOLOGY Basophils # 0.0 K/CMM 0.0 - 0.2 12/16/2010 Normal [facility] HEMATOLOGY Monocytes # 0.5 K/CMM 0.0 - 0.8 12/16/2010 Normal [facility] HEMATOLOGY Lymphocytes 18.4 % 20.0 - 40.0 12/16/2010 LOW [facility] HEMATOLOGY Monocytes 4.1 % 2.0 - 12.0 12/16/2010 Normal [facility] HEMATOLOGY Eosinophils 0.8 % 0.0 - 4.0 12/16/2010 Normal [facility] HEMATOLOGY Segs 76.3 % 45.0 - 75.0 12/16/2010 HI [facility] HEMATOLOGY Basophils 0.4 % 0.0 - 1.0 12/16/2010 Normal [facility] HEMATOLOGY Platelet 181.0 K/CMM 133 - 450 12/16/2010 Normal [facility] HEMATOLOGY MPV 8.8 fL 7.4 - 10.4 12/16/2010 Normal [facility] HEMATOLOGY Hgb 13.2 g/dL 12.0 - 16.0 12/16/2010 Normal [facility] HEMATOLOGY WBC 12.9 K/CMM 3.7 - 10.4 12/16/2010 HI [facility] HEMATOLOGY RBC 4.38 M/CMM 4.20 - 5.40 12/16/2010 Normal [facility] HEMATOLOGY MCH 30.1 pg 27.0 - 31.0 12/16/2010 Normal [facility] HEMATOLOGY MCHC 34.3 g/dL 32.0 - 36.0 12/16/2010 Normal [facility] HEMATOLOGY Hct 38.4 % 36.0 - 48.0 12/16/2010 Normal [facility] HEMATOLOGY MCV 87.6 fL 81.0 - 99.0 12/16/2010 Normal [facility] HEMATOLOGY RDW 14.5 % 11.5 - 14.5 12/16/2010 Normal [facility] Vital Signs Vital Sign Value Date Comments Source Systolic (mm Hg) 140 02/06/2017 [place] Diastolic (mm Hg) 57 02/06/2017 [facility] Respitory Rate 18 02/06/2017 [facility] Heart Rate 78 02/06/2017 [facility] Temperature Oral (F) 97.8 F 02/06/2017 [facility] Respitory Rate 18 02/06/2017 [facility] Heart Rate 72 02/06/2017 [facility] Temperature Oral (F) 98.3 F 02/06/2017 [facility] Systolic (mm Hg) 138 02/06/2017 [facility] Diastolic (mm Hg) 68 02/06/2017 [facility] Respitory Rate 18 02/06/2017 [facility] Systolic (mm Hg) 160 02/06/2017 [facility] Diastolic (mm Hg) 67 02/06/2017 [facility] Temperature Oral (F) 98.1 F 02/06/2017 [facility] Heart Rate 88 02/06/2017 [facility] Height 162.56 cm 02/06/2017 [facility] Weight 62.756 02/06/2017 [facility] BMI Calculated 23.75 02/06/2017 [facility] Height 162.56 cm 02/05/2017 [facility] Weight 63.636 02/05/2017 [facility] BMI Calculated 24.08 02/05/2017 [facility] Temperature Oral (F) 98.3 F 06/27/2013 [facility] Systolic (mm Hg) 134 06/27/2013 [facility] Diastolic (mm Hg) 69 06/27/2013 [facility] Respitory Rate 20 06/27/2013 [facility] Heart Rate 88 06/27/2013 [facility] Diastolic (mm Hg) 68 06/27/2013 [facility] Systolic (mm Hg) 119 06/27/2013 [facility] Respitory Rate 20 06/27/2013 [facility] Heart Rate 73 06/27/2013 [facility] Temperature Oral (F) 98 F 06/27/2013 [facility] Temperature Oral (F) 98.0 F 06/27/2013 [facility] Weight 61.364 06/21/2013 [facility] BMI Calculated 23.96 06/21/2013 [facility] Height 160.02 cm 06/21/2013 [facility] Height 160.02 cm 06/21/2013 [facility] BMI Calculated 24.32 06/21/2013 [facility] Weight 62.273 06/21/2013 [facility] Systolic (mm Hg) 122 02/06/2013 [facility] Respitory Rate 18 02/06/2013 [facility] Diastolic (mm Hg) 56 02/06/2013 [facility] Heart Rate 70 02/06/2013 [facility] Temperature Oral (F) 98.6 F 02/06/2013 [facility] Diastolic (mm Hg) 81 02/06/2013 [facility] Systolic (mm Hg) 129 02/06/2013 [facility] Respitory Rate 18 02/06/2013 [facility] Heart Rate 66 02/06/2013 [facility] Temperature Oral (F) 98.5 F 02/06/2013 [facility] Height 160.02 cm 02/06/2013 [facility] Weight 61.364 02/06/2013 [facility] Temperature Oral (F) 98.0 F 02/06/2013 [facility] Heart Rate 68 02/06/2013 [facility] Diastolic (mm Hg) 74 02/06/2013 [facility] Respitory Rate 18 02/06/2013 [facility] Systolic (mm Hg) 134 02/06/2013 [facility] Heart Rate 76 05/25/2011 [facility] Diastolic (mm Hg) 68 05/25/2011 [facility] Respitory Rate 17 05/25/2011 [facility] Systolic (mm Hg) 132 05/25/2011 [facility] Respitory Rate 16 05/25/2011 [facility] Diastolic (mm Hg) 58 05/25/2011 [facility] Systolic (mm Hg) 139 05/25/2011 [facility] Systolic (mm Hg) 106 05/25/2011 [facility] Respitory Rate 16 05/25/2011 [facility] Diastolic (mm Hg) 49 05/25/2011 [facility] Heart Rate 67 05/25/2011 [facility] Temperature Oral (F) 97.0 F 05/25/2011 [facility] Heart Rate 64 05/18/2011 [facility] Temperature Oral (F) 97.9 F 05/18/2011 [facility] Weight 59.091 05/18/2011 [facility] Height 160.02 cm 05/18/2011 [facility] Temperature Oral (F) 97.8 F 12/16/2010 [facility] Diastolic (mm Hg) 83.0 12/16/2010 [facility] Systolic (mm Hg) 107.0 12/16/2010 [facility] Respitory Rate 16.0 12/16/2010 [facility] Heart Rate 87.0 12/16/2010 [facility] Weight 61.364 12/16/2010 [facility] Height 160.02 cm 12/16/2010 [facility] Temperature Oral (F) 98.4 F 12/16/2010 [facility] Systolic (mm Hg) 132.0 12/16/2010 [facility] Heart Rate 62.0 12/16/2010 [facility] Diastolic (mm Hg) 66.0 12/16/2010 [facility] Respitory Rate 18.0 12/16/2010 [facility] Encounters Location Location Details Encounter Type Encounter Number Reason For Visit Attending Provider ADM Date DC Date Status Source [facility] Outpatient [id number] 592.0 JORGE HAMPEL 11/28/2010 11/28/[address] [facility] Emergency [id number] ADOLPH SALINAS JR 12/15/2010 12/16/[address] [facility] Outpatient [id number] STONE JORGE HAMPEL 01/07/[address] [facility] Outpatient [id number] 592.0 JORGE HAMPEL 04/23/[address] [facility] DS [id number] JORGE HAMPEL 05/25/2011 05/25/[address] [facility] Outpatient [id number] STONE PROTOCOL DX:592.0=CALCIUM KIDNEY STONE JORGE HAMPEL 12/22/[address] [facility] Emergency [id number] FALL CHARITY RIVERA 02/06/2013 02/06/2013 Active [facility] Inpatient [id number] Vadim Teqwimuah 06/21/2013 06/27/2013 [facility] [id number] Kai Mejia 10/02/2013 11/01/2013 [facility] [id number] Kai Meija 11/02/2013 12/02/2013 [facility] Observation [id number] Latonia Solarestricia 02/05/2017 02/06/2017 [facility] Outpatient [id number] [facility] 03/14/2018 Active [facility] Outpatient [id number] NURSE VISIT 03/23/2018 Active [facility] Outpatient [id number] NURSE VISIT 04/14/2018 Active [facility] Outpatient [id number] [facility] 04/14/2018 Active [facility] Outpatient [id number] [facility] 05/09/2018 Active [facility] Outpatient [id number] JOANK JORGE Timmons[facility] Outpatient [id number] 724.4=COMPRESSION OF LUMBAR NERVE ROOT YFN SINGH Active [facility] Procedures Procedure Code Date Perfomer Comments Source Hip replacement [id number] [facility] Hysterectomy [id number] [facility] PEG - Percutaneous endoscopic gastrostomy [id number] [facility]
--- OUTSIDE RECORDS SUMMARY | 2018-08-19 06:20 | XMS REPORT | CCD ---
Author Author Auto Generated Organization [facility] Address Unknown Phone Unavailable Care Team Providers Care Crane Ladle Person Name Role Phone Anirudh Bruce RP Allergies, Adverse Reactions, Alerts Substance Reaction Status Bactrim Active iodine topical Active Keflex Active sulfa drugs Active
--- OUTSIDE RECORDS SUMMARY | 2018-08-19 06:20 | XMS REPORT | CCD ---
Author Author Auto Generated Organization [facility] Address Unknown Phone Unavailable Care Team Providers Care Lens Polisher Hand Name Role Phone Anirudh Bruce RP Allergies, Adverse Reactions, Alerts Substance Reaction Status Bactrim Active iodine topical Active Keflex Active sulfa drugs Active
--- OUTSIDE RECORDS SUMMARY | 2018-08-19 06:20 | XMS REPORT | CCD ---
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 Name Role Phone Anirudh Bruce RP Allergies, Adverse Reactions, Alerts Substance Reaction Status Bactrim Active iodine topical Active Keflex Active sulfa drugs Active Medications Medication Instructions Start Date End Date Status Levaquin 500 mg, 100 mL, Route: IVPB, Drug 05/25/2011 05/25/2011 Completed form: INJ, ONCE, Start date: 05/25/11 7:32:00, Stop date: 05/25/11 7:32:00 lidocaine 1% 0.5 mL, Route: SUB-Q, Drug Form: 05/25/2011 05/25/2011 Discontinued INJ, ONCALL, Start date: 05/25/11 8:00:00, Duration: 1 doses or times Lactated Ringers 1,000 mL, Rate: 25 ml/hr, Infuse 05/25/2011 05/25/2011 Discontinued Injection IV 1,000 over: 40 hr, Route: IV, Dosing mL Weight 59 kg, Total Volume: 1,000, Start date: 05/25/11 7:30:00, Duration: 30 day, Stop date: 06/24/11 7:29:00 Cymbalta 30 mg oral 30 mg, 1 cap, PO, BID, 180 cap, 05/18/2011 Ordered delayed release Substitution Allowed, ECCAP capsule metoprolol PO, BID, Substitution Allowed 05/18/2011 Ordered clonazepam 1 mg oral 1 mg, 1 tab, PO, BID, 270 tab, 05/18/2011 Ordered tablet Substitution Allowed, TAB Nexium 40 mg oral 40 mg, 1 cap, PO, Daily, 30 cap, 05/18/2011 Ordered delayed release Substitution Allowed capsule Cartia XT 240 mg/24 240 mg, 1 cap, PO, Daily, 30 cap, 05/18/2011 Ordered hours oral capsule, Substitution Allowed extended release Vital Signs Most recent to oldest [Reference Range]: 1 2 3 Height 160.02 cm (05/18/2011 10:35:00) Temperature Oral [96.4-99.1 DegF] 97.0 DegF (05/25/2011 07:20:00) 97.9 DegF (05/18/2011 11:08:00) Systolic Blood Pressure [90-140 mmHg] 132 mmHg (05/25/2011 10:00:00) 139 mmHg (05/25/2011 09:15:00) 106 mmHg (05/25/2011 09:00:00) Diastolic Blood Pressure [60-90 mmHg] 68 mmHg (05/25/2011 10:00:00) 58 mmHg *LOW* (05/25/2011 09:15:00) 49 mmHg *LOW* (05/25/2011 09:00:00) Respiratory Rate [14-20 BRMIN] 17 BRMIN (05/25/2011 10:00:00) 16 BRMIN (05/25/2011 09:15:00) 16 BRMIN (05/25/2011 09:00:00) Peripheral Pulse Rate [60-100 bpm] 76 bpm (05/25/2011 10:00:00) 67 bpm (05/25/2011 07:20:00) 64 bpm (05/18/2011 11:08:00) Weight 59.091 kg (05/18/2011 10:35:00) Results CHEMISTRY Most recent to oldest [Reference Range]: 1 Sodium Lvl [135-145 mEq/L] 143 mEq/L (05/18/2011 11:20:00) Potassium Lvl [3.5-5.1 mEq/L] 4.2 mEq/L (05/18/2011 11:20:00) Chloride Lvl [95-109 mEq/L] 106 mEq/L (05/18/2011 11:20:00) CO2 [24-32 mEq/L] 29 mEq/L (05/18/2011 11:20:00) AGAP [10.0-20.0 mEq/L] 12.2 mEq/L (05/18/2011 11:20:00) Creatinine Lvl [0.5-1.4 mg/dL] 0.8 mg/dL (05/18/2011 11:20:00) BUN [7-22 mg/dL] 10 mg/dL (05/18/2011 11:20:00) Glucose Lvl 100 mg/dL 1 *NA* (05/18/2011 11:20:00) Calcium Lvl [8.5-10.5 mg/dL] 8.5 mg/dL (05/18/2011 11:20:00) 1Interpretive Data: Reference Ranges : 0 - 7 days : 41 - 90 mg/dL7 days - 150 yrs : 70 - 99 mg/dL (fasting), based on the clinical recommendations of the [place] [employer]. HEMATOLOGY Most recent to oldest [Reference Range]: 1 WBC [3.7-10.4 K/CMM] 10.5 K/CMM *HI* (05/18/2011 11:20:00) RBC [4.20-5.40 M/CMM] 4.32 M/CMM (05/18/2011 11:20:00) Hgb [12.0-16.0 g/dL] 12.9 g/dL (05/18/2011 11:20:00) Hct [36.0-48.0 %] 38.7 % (05/18/2011 11:20:00) MCV [81.0-99.0 fL] 89.6 fL (05/18/2011 11:20:00) MCH [27.0-31.0 pg] 29.9 pg (05/18/2011 11:20:00) MCHC [32.0-36.0 g/dL] 33.4 g/dL (05/18/2011 11:20:00) RDW [11.5-14.5 %] 14.1 % (05/18/2011 11:20:00) Platelet [133-450 K/CMM] 179 K/CMM (05/18/2011 11:20:00) MPV [7.4-10.4 fL] 9.1 fL (05/18/2011 11:20:00) Segs [45.0-75.0 %] 64.0 % (05/18/2011 11:20:00) Lymphocytes [20.0-40.0 %] 27.1 % (05/18/2011 11:20:00) Monocytes [2.0-12.0 %] 7.4 % (05/18/2011 11:20:00) Eosinophils [0.0-4.0 %] 1.2 % (05/18/2011 11:20:00) Basophils [0.0-1.0 %] 0.3 % (05/18/2011 11:20:00) Segs-Bands # [1.5-8.1 K/CMM] 6.7 K/CMM (05/18/2011 11:20:00) Lymphocytes # [1.0-5.5 K/CMM] 2.8 K/CMM (05/18/2011 11:20:00) Monocytes # [0.0-0.8 K/CMM] 0.8 K/CMM (05/18/2011 11:20:00) Eosinophils # [0.0-0.5 K/CMM] 0.1 K/CMM (05/18/2011 11:20:00) Basophils # [0.0-0.2 K/CMM] 0.0 K/CMM (05/18/2011 11:20:00)
--- OUTSIDE RECORDS SUMMARY | 2018-08-19 06:20 | XMS REPORT | Summary of Care ---
Author Author [facility] Organization [facility] Address Unknown Phone Unavailable Encounter BRET Benitez(YOLIE) [id number] Date(s): 02/05/17 - 02/06/17 [facility] [id number] [place] [address]- Discharge Disposition: Home or Self Care Attending Physician: Latonia Mayen MD Admitting Physician: Latonia Mayen MD Vital Signs 1 2 3 Most recent to oldest [Reference Range]: 162.56 cm (02/05/17 11:20 PM) 162.56 cm (02/05/17 4:37 PM) Height 62.784 kg (02/06/17 5:30 AM) Current Weight 97.8 DegF (02/06/17 3:16 PM) 98.3 DegF (02/06/17 11:00 AM) 98.1 DegF (02/06/17 7:14 AM) Temperature Oral [96.4-99.1 DegF] 140/57 mmHg (02/06/17 3:16 PM) 138/68 mmHg (02/06/17 11:00 AM) 160/67 mmHg *HI* (02/06/17 7:14 AM) Blood Pressure [90-140/60-90 mmHg] 18 BRMIN (02/06/17 3:16 PM) 18 BRMIN (02/06/17 11:00 AM) 18 BRMIN (02/06/17 7:14 AM) Respiratory Rate [14-20 BRMIN] 78 bpm (02/06/17 3:16 PM) 72 bpm (02/06/17 11:00 AM) 88 bpm (02/06/17 7:14 AM) Peripheral Pulse Rate [60-100 bpm] 62.756 kg (02/05/17 11:20 PM) 63.636 kg (02/05/17 4:37 PM) Weight 23.75 m2 (02/05/17 11:20 PM) 24.08 m2 (02/05/17 4:37 PM) Body Mass Index Problem List Condition Effective Dates Status Health Status Informant AMI - Acute Resolved myocardial infarction(Confirmed ) Anxiety disorder1 Active Benign hypertension2 Active Cerebrovascular Active accident3 Coronary 07/11/12 Active arteriosclerosis4 CVA - Resolved Cerebrovascular accident(Confirmed) Depressive disorder5 Active Dysuria6 08/09/12 Active Fibromyalgia(Confirm Active ed) GERD with Resolved esophagitis(Confirme d) Gastroesophageal Active reflux disease7 HTN - Active Hypertension(Confirm ed) Muscle weakness8 08/09/12 Active 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 2Data migrated from [employer] on 08/11/14. 3Data migrated from [employer] on 08/11/14. 4Data migrated from [employer] on 08/11/14. 5Data migrated from [employer] on 08/11/14. 6Data migrated from [employer] on 08/11/14. 7Data migrated from [employer] on 08/11/14. 8Data migrated from [employer] on 08/11/14. 9Data migrated from [employer] on 08/11/14. Allergies, Adverse Reactions, Alerts Substance Reaction Severity Status sulfa drugs Active iodine topical Active erythromycin1 Active cephalexin2 Active sulfamethoxazole-trimetho Active prim3 Keflex Active Bactrim Active Food Pork4 Active Food Strawberries5 Active 1Data migrated from [employer] on 07/10/14. Originally documented as E MYCIN. breathing, rash 2Data migrated from [employer] on 07/10/14. Originally documented as KEFLEX. Breathing, rash 3Data migrated from [employer] on 07/10/14. Originally documented as BACTRIM. breathing, hives 4Data migrated from [employer] on 05/10/15. Originally documented as PORK. breathing, hives 5Data migrated from [employer] on 05/10/15. Originally documented as STRAWBERRIES. breathing, hives Medications acetaminophen 650 mg, 2 tab, Route: PO, Drug form: TAB, Q4H, Dosing Weight 62.756, kg, PRN Mir n 1-3/Temp > 100.4 F, Start date: 02/06/17 0:06:00 [employer], Duration: 30 day, Stop date: 03/08/17 0:05:00 [employer] Notes: Do not exceed 4 gm/day. (Same as: Tylenol) Start Date: 02/06/17 Stop Date: 02/06/17 Status: Discontinued acetaminophen-hydrocodone 325 mg-10 mg oral tablet 1 tab, PO, TID, 0 Refill(s) Start Date: 02/06/17 Status: Ordered acetaminophen-hydrocodone 325 mg-10 mg oral tablet 1 tab, Route: PO, Drug Form: TAB, Dosing Weight 62.756, kg, TID, Start date: 9:00:00 [employer], Duration: 30 day, Stop date: 03/07/17 17:00:00 [employer] Notes: Do not exceed 4gm/day of acetaminophen. (Same as: [place] 325/10) Start Date: 02/06/17 Stop Date: 02/06/17 Status: Discontinued ammonium lactate topical TOP, BID, 0 Refill(s) Start Date: 02/06/17 Stop Date: 02/06/17 Status: Discontinued ammonium lactate topical 12% cream 1 appl, Route: TOP, BID, Drug form: CRM, PRN Itching, Start date: 02/06/17 0:26: 00 [employer], Duration: 30 day, Stop date: 03/08/17 0:25:00 [employer] Notes: (Same as: Amlactin) Start Date: 02/06/17 Stop Date: 02/06/17 Status: Discontinued ammonium lactate topical 12% cream 1 appl, TOP, PRN Itching, 0 Refill(s) Start Date: 02/06/17 Status: Ordered Ativan 0.5 mg, Route: IVP, Drug form: INJ, ONCE, Dosing Weight 63.636, kg, Priority: ST AT, Start date: 02/05/17 20:26:00 [employer], Stop date: 02/05/17 20:26:00 [employer] Start Date: 02/05/17 Stop Date: 02/05/17 Status: Completed atorvastatin 10 mg, 1 tab, Route: PO, Drug form: TAB, Bedtime, Dosing Weight 62.756, kg, Star t date: 02/06/17 0:43:00 [employer], Duration: 30 day, Stop date: 03/07/17 21:00:00 [employer] Notes: (Same As: Lipitor) Start Date: 02/06/17 Stop Date: 02/06/17 Status: Discontinued atorvastatin 10 mg oral tablet 10 mg=1 tab, PO, Bedtime, # 30 tab, 0 Refill(s) Start Date: 02/06/17 Status: Ordered B-12 1000 mcg sublingual tablet 1,000 microgram=1 tab, SL, Daily, 0 Refill(s) Start Date: 02/06/17 Status: Ordered Caltrate 600 + D 1 tab, PO, BID, 0 Refill(s) Start Date: 02/06/17 Status: Ordered Cartia XT 240 mg, 1 cap, Route: PO, Drug form: ERCAP, Daily, Dosing Weight 62.756, kg, Sta rt date: 02/06/17 9:00:00 [employer], Duration: 30 day, Stop date: 03/07/17 9:00:00 [employer] Notes: (Same as: Kareem LAY) Before meals. DO NOT CRUSH. Start Date: 02/06/17 Stop Date: 02/06/17 Status: Discontinued clobetasol topical 0.05% ointment 1 appl, Route: TOP, BID, Drug form: OINT, Start date: 02/06/17 9:00:00 [employer], Dura tion: 30 day, Stop date: 03/07/17 17:00:00 [employer] Notes: (clobetasol propionate 0.05% 15 gm top OIN) (Same As: Temovate) Start Date: 02/06/17 Stop Date: 02/06/17 Status: Discontinued clobetasol topical 0.05% ointment 1 appl, TOP, BID, # 15 gm, 0 Refill(s) Start Date: 02/06/17 Stop Date: 02/20/17 Status: Ordered clonazePAM 1 mg, 1 tab, Route: PO, Drug form: TAB, Q12H, Dosing Weight 62.756, kg, Start da te: 02/06/17 9:00:00 [employer], Duration: 30 day, Stop date: 03/07/17 21:00:00 [employer] Notes: (Same As: KlonoPIN) Start Date: 02/06/17 Stop Date: 02/06/17 Status: Canceled cyanocobalamin 1,000 microgram, 2 tab, Route: PO, Drug form: TAB, Daily, Dosing Weight 62.756, kg, Start date: 02/06/17 9:00:00 [employer], Duration: 30 day, Stop date: 03/07/17 9:00 :00 [employer] Notes: (Same As: Vitamin B12) Start Date: 02/06/17 Stop Date: 02/06/17 Status: Discontinued Cymbalta 30 mg, 1 cap, Route: PO, Drug form: DRC, BID, Dosing Weight 62.756, kg, Start da te: 02/06/17 9:00:00 [employer], Duration: 30 day, Stop date: 03/07/17 17:00:00 [employer] Notes: (Same as: Cymbalta) (Do Not Crush) Start Date: 02/06/17 Stop Date: 02/06/17 Status: Canceled Cymbalta 60 mg, 2 cap, Route: PO, Drug form: DRC, BID, Dosing Weight 62.756, kg, Start da te: 02/06/17 9:00:00 [employer], Duration: 30 day, Stop date: 03/07/17 17:00:00 [employer] Notes: (Same as: Cymbalta) (Do Not Crush) Start Date: 02/06/17 Stop Date: 02/06/17 Status: Discontinued diazepam 5 mg, 1 tab, Route: PO, Drug form: TAB, TID, Dosing Weight 62.756, kg, Start susanne e: 02/06/17 9:00:00 [employer], Duration: 30 day, Stop date: 03/07/17 17:00:00 [employer] Notes: (Same as: Valium) Start Date: 02/06/17 Stop Date: 02/06/17 Status: Discontinued diazepam 5 mg oral tablet 5 mg=1 tab, PO, TID, 0 Refill(s) Start Date: 02/06/17 Status: Ordered dicyclomine 10 mg, 1 cap, Route: PO, Drug form: CAP, QID-Before Meals, Dosing Weight 62.756, kg, Start date: 02/06/17 7:30:00 [employer], Duration: 30 day, Stop date: 03/07/17 21: 00:00 [employer] Notes: (Same as: Bentyl) Start Date: 02/06/17 Stop Date: 02/06/17 Status: Discontinued dicyclomine 10 mg oral capsule 10 mg=1 cap, PO, QID-Before Meals, # 56 cap, 0 Refill(s) Start Date: 02/06/17 Stop Date: 02/20/17 Status: Ordered doxycycline 100 mg, 2 cap, Route: PO, Drug form: CAP, Daily, Dosing Weight 62.756, kg, Start date: 02/06/17 9:00:00 [employer], Duration: 30 day, Stop date: 03/07/17 9:00:00 [employer] Notes: (Same as: Vibramycin) No milk/antacids/iron. Take 1 hour before or 2 lalo rs after dairy products Start Date: 02/06/17 Stop Date: 02/06/17 Status: Discontinued doxycycline monohydrate 100 mg oral tablet 100 mg=1 tab, PO, Daily, 0 Refill(s) Start Date: 02/06/17 Status: Ordered famotidine 20 mg, 2 mL, Route: IVP, Drug form: INJ, ONCE, Dosing Weight 63.636, kg, Priorit y: STAT, Start date: 02/05/17 16:57:00 [employer], Stop date: 02/05/17 16:57:00 [employer] Notes: (Same as: Pepcid)Can be dilute in 5-10cc NS IVP: Slow IV push over at le ast 2 minutes. Start Date: 02/05/17 Stop Date: 02/05/17 Status: Completed fentaNYL patch 25 mcg/hr 1 patch, Route: TOP, Drug Form: ERFILM, Dosing Weight 62.756, kg, Q72H, NOW, Sta rt date: 02/06/17 10:42:00 [employer], Duration: 30 day, Stop date: 03/05/17 10:42:[address] Notes: (Same as: Duragesic)Check for product integrity. Apply to intact skin"Re move old patch before application of new patch" Start Date: 02/06/17 Stop Date: 02/06/17 Status: Discontinued furosemide 40 mg oral tablet 40 mg, 1 tab, Route: PO, Drug form: TAB, Daily, Dosing Weight 62.756, kg, Start date: 02/06/17 9:00:00 [employer], Duration: 30 day, Stop date: 03/07/17 9:00:00 [employer] Notes: (Same as: Lasix) May cause GI upset. Give with food or milk. Start Date: 02/06/17 Stop Date: 02/06/17 Status: Discontinued glimepiride 4 mg, Route: PO, Drug form: TAB, BID, Dosing Weight 62.756, kg, Start date: 01/14 07/29 9:00:00 [employer], Duration: 30 day, Stop date: 03/07/17 17:00:00 [employer] Start Date: 02/06/17 Stop Date: 02/06/17 Status: Discontinued glimepiride 4 mg oral tablet 4 mg=1 tab, PO, BID, 0 Refill(s) Start Date: 02/06/17 Status: Ordered hydrOXYzine hydrochloride 50 mg oral tablet 50 mg, 2 tab, Route: PO, Drug form: TAB, TID, Dosing Weight 62.756, kg, Start da te: 02/06/17 9:00:00 [employer], Duration: 30 day, Stop date: 03/07/17 17:00:00 [employer] Notes: (Same as: Atarax) Avoid alcohol. Start Date: 02/06/17 Stop Date: 02/06/17 Status: Discontinued hydrOXYzine hydrochloride 50 mg oral tablet 50 mg, 2 tab, Route: PO, Drug form: TAB, Bedtime, Dosing Weight 62.756, kg, Star t date: 02/06/17 0:12:00 [employer], Duration: 30 day, Stop date: 03/07/17 21:00:00 [employer] Notes: (Same as: Atarax) Avoid alcohol. Start Date: 02/06/17 Stop Date: 02/06/17 Status: Discontinued lidocaine topical patch (5% film) 1 patch, Route: TOP, Daily, Drug form: FILM, Start date: 02/06/17 9:00:00 [employer], D uration: 30 day, Stop date: 03/07/17 9:00:00 [employer] Notes: Apply only once for up to 12 hours in [id number] period (12 hours on and 12 hours off).(Same as: Lidoderm)"Remove old patch before application of new patch" Start Date: 02/06/17 Stop Date: 02/06/17 Status: Discontinued lidocaine topical patch (5% film) 1 patch, TOP, Daily, 1 TO EACH LEG, 0 Refill(s) Start Date: 02/06/17 Status: Ordered Lopressor 50 mg, 1 tab, Route: PO, Drug form: TAB, Q12H, Dosing Weight 62.756, kg, Start d ate: 02/06/17 0:12:00 [employer], Duration: 30 day, Stop date: 03/07/17 21:00:00 [employer] Notes: (Same as: Lopressor) Start Date: 02/06/17 Stop Date: 02/06/17 Status: Discontinued morphine Sulfate 4 mg, 2 mL, Route: IVP, Drug form: SOLN, ONCE, Dosing Weight 63.636, kg, Priorit y: STAT, Start date: 02/05/17 18:14:00 [employer], Stop date: 02/05/17 18:14:00 [employer] Start Date: 02/05/17 Stop Date: 02/05/17 Status: Completed morphine Sulfate 4 mg, 1 mL, Route: IVP, Drug form: SOLN, ONCE, Dosing Weight 63.636, kg, Priorit y: STAT, Start date: 02/05/17 16:57:00 [employer], Stop date: 02/05/17 16:57:00 [employer] Notes: (Same as:MORPhine Sulfate) Start Date: 02/05/17 Stop Date: 02/05/17 Status: Deleted morphine Sulfate 4 mg, 1 mL, Route: IVP, Drug form: SOLN, ONCE, Dosing Weight 63.636, kg, Priorit y: STAT, Start date: 02/05/17 21:33:00 [employer], Stop date: 02/05/17 21:33:00 [employer] Notes: (Same as:MORPhine Sulfate) Start Date: 02/05/17 Stop Date: 02/05/17 Status: Completed Multiple Vitamins oral tablet 1 tab, PO, Daily, # 90 tab, 0 Refill(s) Start Date: 02/06/17 Status: Ordered multivitamin 1 tab, Route: PO, Drug Form: TAB, Dosing Weight 62.756, kg, Daily, Start date: 04/08/16 9:00:00 [employer], Duration: 30 day, Stop date: 03/07/17 9:00:00 [employer] Notes: (Same as:One Tab Daily, Tab-A-Ruthann + Beta Carotene) Give with food. Start Date: 02/06/17 Stop Date: 02/06/17 Status: Discontinued mupirocin topical 2% ointment 1 appl, TOP, PRN Itching, 0 Refill(s) Start Date: 02/06/17 Status: Ordered mupirocin topical 2% ointment 1 appl, Route: TOP, TID, Drug form: OINT, PRN Itching, Start date: 02/06/17 0:26 :00 [employer], Duration: 30 day, Stop date: 03/08/17 0:25:00 [employer] Start Date: 02/06/17 Stop Date: 02/06/17 Status: Discontinued NexIUM 20 mg, Route: PO, Drug form: ECCAP, Before Breakfast, Dosing Weight 62.756, kg, Start date: 02/06/17 7:30:00 [employer], Duration: 30 day, Stop date: 03/07/17 7:30:00 [employer] Start Date: 02/06/17 Stop Date: 02/06/17 Status: Deleted [place] 7.5/325 oral tablet 1 tab, Route: PO, Drug Form: TAB, Dosing Weight 62.756, kg, Q12H, Start date: 9:00:00 [employer], Duration: 30 day, Stop date: 03/07/17 21:00:00 [employer] Notes: Same as [place] 325-7.5mg Do not exceed 4gm/day of acetaminophen. Start Date: 02/06/17 Stop Date: 02/06/17 Status: Canceled NS 1,000 mL 1,000 mL, Rate: 200 ml/hr, Infuse over: 5 hr, Route: IV, Dosing Weight 62.756 kg , Total Volume: 1,000, Start date: 02/06/17 10:25:00 [employer], Duration: 30 day, Stop date: 03/08/17 10:24:00 [employer], 1.7, m2 Start Date: 02/06/17 Stop Date: 02/06/17 Status: Discontinued omeprazole 40 mg oral delayed release capsule 40 mg=1 cap, PO, Daily, # 30 cap, 0 Refill(s) Start Date: 02/06/17 Status: Ordered ondansetron 4 mg, 2 mL, Route: IVP, Drug form: INJ, ONCE, Dosing Weight 63.636, kg, Priority : STAT, Start date: 02/05/17 16:57:00 [employer], Stop date: 02/05/17 16:57:00 [employer] Notes: (Same as: Zofran) MEDICATION WASTE Product Size: 4 mgProduct Was lucia: ___ mg Start Date: 02/05/17 Stop Date: 02/05/17 Status: Completed ondansetron 4 mg, 2 mL, Route: IVP, Drug form: INJ, Q6H, Dosing Weight 62.756, kg, PRN Nause a & Vomiting, Start date: 02/06/17 0:06:00 [employer], Duration: 30 day, Stop date: 03/08/17 0:05:00 [employer] Notes: (Same as: Zofran) MEDICATION WASTE Product Size: 4 mgProduct Was lucia: ___ mg Start Date: 02/06/17 Stop Date: 02/06/17 Status: Discontinued Phenergan 25 mg, 1 tab, Route: PO, Drug form: TAB, Q6H, Dosing Weight 62.756, kg, PRN Naus ea, Start date: 02/06/17 0:26:00 [employer], Duration: 30 day, Stop date: 03/08/17 0:25 :00 [employer] Notes: (Same as: Phenergan) Start Date: 02/06/17 Stop Date: 02/06/17 Status: Discontinued Phenergan 25 mg oral tablet 25 mg=1 tab, PO, Q6H, PRN Nausea, # 15 tab, 0 Refill(s) Start Date: 02/06/17 Stop Date: 02/10/17 Status: Ordered PHENobarbital 90 mg, 3 tab, Route: PO, Drug form: TAB, Bedtime, Dosing Weight 62.756, kg, Star t date: 02/06/17 0:42:00 [employer], Duration: 30 day, Stop date: 03/07/17 21:00:00 [employer] Notes: (Same as: Marifer Lamb Solfoton) Start Date: 02/06/17 Stop Date: 02/06/17 Status: Discontinued PHENobarbital 30 mg oral tablet 90 mg=3 tab, PO, Bedtime, 0 Refill(s) Start Date: 02/06/17 Status: Ordered Protonix 40 mg, 1 tab, Route: PO, Drug form: ECTAB, Before Breakfast, Start date: 7 7:30:00 [employer], Duration: 30 day, Stop date: 03/07/17 7:30:00 [employer] Notes: Tablet should not be chewed or crushed.(Same as: Protonix) Start Date: 02/06/17 Stop Date: 02/06/17 Status: Discontinued Saline Flush 0.9% 10 mL, Route: IVP, Drug Form: INJ, Dosing Weight 63.636, kg, PRN, PRN Line Flush , Start date: 02/05/17 16:57:00 [employer], Duration: 30 day, Stop date: 03/07/17 16:56 :00 [employer] Notes: (Same as: BD Posiflush) Start Date: 02/05/17 Stop Date: 02/06/17 Status: Discontinued Saline Flush 0.9% 10 ml, Route: IVP, Drug Form: INJ, Dosing Weight 62.756, kg, PRN, PRN Line Flush , Start date: 02/06/17 0:06:00 [employer], Duration: 30 day, Stop date: 03/08/17 0:05:0 0 [employer] Notes: (Same as: BD Posiflush) Start Date: 02/06/17 Stop Date: 02/06/17 Status: Discontinued simvastatin 20 mg, 1 tab, Route: PO, Drug form: TAB, Bedtime, Dosing Weight 62.756, kg, Star t date: 02/06/17 0:13:00 [employer], Duration: 30 day, Stop date: 03/07/17 21:00:00 [employer] Notes: (Same as: Zocor) Start Date: 02/06/17 Stop Date: 02/06/17 Status: Discontinued Sodium Chloride 0.45% IV 1,000 mL 1,000 mL, Rate: 100 ml/hr, Infuse over: 10 hr, Route: IV, Dosing Weight 62.756 k g, Total Volume: 1,000, Start date: 02/06/17 0:06:00 [employer], Duration: 30 day, Stop date: 03/08/17 0:05:00 [employer], 1.7, m2 Start Date: 02/06/17 Stop Date: 02/06/17 Status: Discontinued Sodium Chloride 0.9% (Bolus) IV 1,000 mL, 1000 ml/hr, Infuse Over: 1 hr, Route: IV, 1,000, Drug form: INJ, ONCE, Priority: STAT, Dosing Weight 63.636 kg, Start date: 02/05/17 19:20:00 [employer], Stop date: 02/05/17 19:20:00 [employer] Start Date: 02/05/17 Stop Date: 02/05/17 Status: Completed Sodium Chloride 0.9% (Bolus) IV 1,000 mL, 2,000 ml/hr, Infuse Over: 30 minutes, Route: IV, 1,000, Drug form: INJ , ONCE, Priority: STAT, Dosing Weight 63.636 kg, Start date: 02/05/17 16:57:[address], Stop date: 02/05/17 16:57:00 [employer] Start Date: 02/05/17 Stop Date: 02/05/17 Status: Completed trazodone 100 mg oral tablet 100 mg, 2 tab, Route: PO, Drug form: TAB, Bedtime, Dosing Weight 62.756, kg, Sta rt date: 02/06/17 0:13:00 [employer], Duration: 30 day, Stop date: 03/07/17 21:00:00 CS T Notes: (Same As: Clara) Start Date: 02/06/17 Stop Date: 02/06/17 Status: Discontinued Zofran 4 mg, 2 mL, Route: IVP, Drug form: INJ, ONCE, Dosing Weight 63.636, kg, Priority : STAT, Start date: 02/05/17 21:33:00 [employer], Stop date: 02/05/17 21:33:00 [employer] Notes: (Same as: Zofran) MEDICATION WASTE Product Size: 4 mgProduct Was lucia: ___ mg Start Date: 02/05/17 Stop Date: 02/05/17 Status: Completed Zofran ODT 8 mg oral tablet, disintegrating 8 mg=1 tab, PO, TID, PRN Nausea and Vomiting, Dissolve tab under tongue, # 20 ta b, 0 Refill(s), Pharmacy: [facility] [id number] Start Date: 02/06/17 Stop Date: 02/10/17 Status: Ordered ZyrTEC 10 mg, 2 tab, Route: PO, Drug form: TAB, Daily, Dosing Weight 62.756, kg, Start date: 02/06/17 9:00:00 [employer], Duration: 30 day, Stop date: 03/07/17 9:00:00 [employer] Notes: (Same As: Zyrtec) Start Date: 02/06/17 Stop Date: 02/06/17 Status: Discontinued Results ELECTROLYTES Most recent to 1 2 oldest [Reference Range]: Sodium Lvl [135-145 140 mEq/L 138 mEq/L mEq/L] (02/06/17 5:40 AM) (02/05/17 5:33 PM) Potassium Lvl 3.7 mEq/L 3.9 mEq/L [3.5-5.1 mEq/L] (02/06/17 5:40 AM) (02/05/17 5:33 PM) Chloride Lvl [95-109 108 mEq/L 101 mEq/L mEq/L] (02/06/17 5:40 AM) (02/05/17 5:33 PM) CO2 [24-32 mEq/L] 25 mEq/L 30 mEq/L (02/06/17 5:40 AM) (02/05/17 5:33 PM) AGAP [10.0-20.0 10.7 mEq/L 10.9 mEq/L mEq/L] (02/06/17 5:40 AM) (02/05/17 5:33 PM) CHEM PANEL Most recent to 1 2 oldest [Reference Range]: Creatinine Lvl 0.55 mg/dL 0.60 mg/dL [0.50-1.40 mg/dL] (02/06/17 5:40 AM) (02/05/17 5:33 PM) eGFR 99 mL/min/1.73m2 1 96 mL/min/1.73m2 2 *NA* *NA* (02/06/17 5:40 AM) (02/05/17 5:33 PM) BUN [7-22 mg/dL] 8 mg/dL 11 mg/dL (02/06/17 5:40 AM) (02/05/17 5:33 PM) B/C Ratio [6-25] 15 18 (02/06/17 5:40 AM) (02/05/17 5:33 PM) Glucose Lvl [70-99 103 mg/dL 138 mg/dL mg/dL] *HI* *HI* (02/06/17 5:40 AM) (02/05/17 5:33 PM) Total Protein 5.5 g/dL 7.1 g/dL [6.4-8.4 g/dL] *LOW* (02/05/17 5:33 PM) (02/06/17 5:40 AM) Albumin Lvl [3.5-5.0 2.8 g/dL 3.7 g/dL g/dL] *LOW* (02/05/17 5:33 PM) (02/06/17 5:40 AM) Globulin [2.7-4.2 2.7 g/dL 3.4 g/dL g/dL] (02/06/17 5:40 AM) (02/05/17 5:33 PM) A/G Ratio [0.7-1.6] 1.0 1.1 (02/06/17 5:40 AM) (02/05/17 5:33 PM) Calcium Lvl 8.1 mg/dL 9.2 mg/dL [8.5-10.5 mg/dL] *LOW* (02/05/17 5:33 PM) (02/06/17 5:40 AM) Magnesium Lvl 2.2 mg/dL [1.8-2.4 mg/dL] (02/05/17 5:33 PM) ALT [0-65 unit/L] 18 unit/L 24 unit/L (02/06/17 5:40 AM) (02/05/17 5:33 PM) AST [0-37 unit/L] 16 unit/L 18 unit/L (02/06/17 5:40 AM) (02/05/17 5:33 PM) Alk Phos [39-136 88 unit/L 117 unit/L unit/L] (02/06/17 5:40 AM) (02/05/17 5:33 PM) Bili Total [0.2-1.3 0.5 mg/dL 0.5 mg/dL mg/dL] (02/06/17 5:40 AM) (02/05/17 5:33 PM) 1Result Comment: The eGFR is calculated using [...] from the National Kid[employer] Education Program ( NKDEP) which additionally recommends that when the eGFR is used in patients with extremes of body mass index for purposes of drug dosing, the eGFR should be mul tiplied by the estimated BMI. 2Result Comment: The eGFR is calculated using [...] from the National Kid[employer] Education Program ( NKDEP) which additionally recommends that when the eGFR is used in patients with extremes of body mass index for purposes of drug dosing, the eGFR should be mul tiplied by the estimated BMI. CARDIAC ENZYMES Most recent to 1 2 oldest [Reference Range]: Total CK [12-191 16 unit/L unit/L] (02/05/17 5:33 PM) CK MB [0.5-3.6 <0.5 ng/mL ng/mL] (02/05/17 5:33 PM) CK MB Index <3.1 [0.0-2.5] *HI* (02/05/17 5:33 PM) Troponin-I <0.02 ng/mL [0.00-0.40 ng/mL] (02/05/17 5:33 PM) URINE AND STOOL Most recent to 1 2 oldest [Reference Range]: UA Turbidity [Clear] Clear (02/05/17 7:35 PM) UA Color [Yellow] Yellow *NA* (02/05/17 7:35 PM) UA pH [5.0-8.0] 7.0 (02/05/17 7:35 PM) UA Spec Grav 1.015 [<=1.030] (02/05/17 7:35 PM) UA Glucose [Negative Negative mg/dL mg/dL] *NA* (02/05/17 7:35 PM) UA Blood [Negative] Negative (02/05/17 7:35 PM) UA Ketones [Negative Trace mg/dL mg/dL] *ABN* (02/05/17 7:35 PM) UA Protein [Negative Negative mg/dL mg/dL] (02/05/17 7:35 PM) UA Urobilinogen <=1.0 mg/dL [0.1-1.0 mg/dL] *NA* (02/05/17 7:35 PM) UA Bili [Negative] Negative *NA* (02/05/17 7:35 PM) UA Leuk Est Trace [Negative] *ABN* (02/05/17 7:35 PM) UA Nitrite Negative [Negative] (02/05/17 7:35 PM) UA WBC [0-5 /HPF] 2 /HPF (02/05/17 7:35 PM) UA RBC [0-2 /HPF] <1 /HPF (02/05/17 7:35 PM) UA Sq Epi [Few /LPF] Occasional /LPF *NA* (02/05/17 7:35 PM) HEMATOLOGY Most recent to 1 2 oldest [Reference Range]: WBC [3.7-10.4 K/CMM] 5.3 K/CMM 6.2 K/CMM (02/06/17 5:40 AM) (02/05/17 5:33 PM) RBC [4.20-5.40 3.81 M/CMM 4.53 M/CMM M/CMM] *LOW* (02/05/17 5:33 PM) (02/06/17 5:40 AM) Hgb [12.0-16.0 g/dL] 11.2 g/dL 13.4 g/dL *LOW* (02/05/17 5:33 PM) (02/06/17 5:40 AM) Hct [36.0-48.0 %] 33.6 % 39.7 % *LOW* (02/05/17 5:33 PM) (02/06/17 5:40 AM) MCV [80.0-98.0 fL] 88.1 fL 87.7 fL (02/06/17 5:40 AM) (02/05/17 5:33 PM) MCH [27.0-31.0 pg] 29.3 pg 29.5 pg (02/06/17 5:40 AM) (02/05/17 5:33 PM) MCHC [32.0-36.0 33.2 g/dL 33.7 g/dL g/dL] (02/06/17 5:40 AM) (02/05/17 5:33 PM) RDW [11.5-14.5 %] 17.3 % 17.1 % *HI* *HI* (02/06/17 5:40 AM) (02/05/17:33 PM) Platelet [133-450 85 K/CMM 105 K/CMM K/CMM] *LOW* *LOW* (02/06/17 5:40 AM) (02/05/17:33 PM) MPV [7.4-10.4 fL] 9.2 fL 9.7 fL (02/06/17 5:40 AM) (02/05/17 5:33 PM) Segs [45.0-75.0 %] 70.3 % 75.8 % (02/06/17 5:40 AM) *HI* (02/05/17:33 PM) Lymphocytes 14.6 % 11.6 % [20.0-40.0 %] *LOW* *LOW* (02/06/17 5:40 AM) (02/05/17:33 PM) Monocytes [2.0-12.0 11.5 % 9.4 % %] (02/06/17 5:40 AM) (02/05/17 5:33 PM) Eosinophils [0.0-4.0 3.4 % 3.1 % %] (02/06/17 5:40 AM) (02/05/17 5:33 PM) Basophils [0.0-1.0 0.2 % 0.1 % %] (02/06/17 5:40 AM) (02/05/17 5:33 PM) Segs-Bands # 3.7 K/CMM 4.7 K/CMM [1.5-8.1 K/CMM] (02/06/17 5:40 AM) (02/05/17 5:33 PM) Lymphocytes # 0.8 K/CMM 0.7 K/CMM [1.0-5.5 K/CMM] *LOW* *LOW* (02/06/17 5:40 AM) (02/05/17 5:33 PM) Monocytes # [0.0-0.8 0.6 K/CMM 0.6 K/CMM K/CMM] (02/06/17 5:40 AM) (02/05/17 5:33 PM) Eosinophils # 0.2 K/CMM 0.2 K/CMM [0.0-0.5 K/CMM] (02/06/17 5:40 AM) (02/05/17 5:33 PM) Immunizations No data available for this section Procedures Procedure Date Related Diagnosis Body Site Hip replacement Hysterectomy PEG - Percutaneous endoscopic gastrostomy Social History Social History Type Response Alcohol Never Smoking Status Never smoker; Exposure to Tobacco Smoke None; Cigarette Smoking Last 365 Days No; Reg Smoking Cessation Counseling No Assessment and Plan Extracted from: Title: Clinical Document Author: Kai Cummings MD Date: 02/06/17 Hospitalist Discharge Note [facility] Kai Cummings MD SUBJECTIVE: Patient seen and examined, events reviewed Patient states she feels better now without nausea at this time OBJECTIVE: Vitals and Temp: VitalsTmp(F)[id number] 02/06 07:[id number]--- 02/06 03:[id number]/[id number]--- 02/05 22:[id number]/[id number]--- 02/05 22:[id number] 4.0L/m 02/05 21:[id number] 4.0L/m 24 Hr Tmax: 99.4F (37.44c) at 02/05 22:45Vital Signs are the last 5 in the past 48 hours. Input/Output RecordInOutBal 01/2524hr Tot 0 0 0 01/2424hr Tot 2599 0 2599 Labs Most Recent Results Previous Results Previous Results Previous Results WBC 5.3 (FEB 06) 6.2 (FEB 05) -- -- Hgb L 11.2 (FEB 06) 13.4 (FEB 05) -- -- Hct L 33.6 (FEB 06) 39.7 (FEB 05) -- -- Plt L 85 (FEB 06) L 105 (FEB 05) -- -- Na 140 (FEB 06) 138 (FEB 05) -- -- K 3.7 (FEB 06) 3.9 (FEB 05) -- -- CO2 25 (FEB 06) 30 (FEB 05) -- -- Cl 108 (FEB 06) 101 (FEB 05) -- -- Cr 0.55 (FEB 06) 0.60 (FEB 05) -- -- BUN 8 (FEB 06) 11 (FEB 05) -- -- Glucose Random H 103 (FEB 06) H 138 (FEB 05) -- -- Mg 2.2 (FEB 05) -- -- -- Ca L 8.1 (FEB 06) 9.2 (FEB 05) -- -- Troponin <0.02 (FEB 05) -- -- -- CK MB <0.5 (FEB 05) -- -- -- Total CK 16 (FEB 05) RTF_CENTER, -- RTF_CENTER, -- RTF_CENTER, -- MEDICATIONS Scheduled Meds ():DULoxetine (Cymbalta), PHENobarbital, acetaminophen- hydrocodone (acetaminophen-hydrocodone 325 mg-10 mg oral tablet), atorvastatin, cetirizine (ZyrTEC), clobetasol topical (clobetasol topical 0.05% ointment), cyanocobalamin, diazepam, dicyclomine, diltiazem (Cartia XT), doxycycline, furosemide (furosemide 40 mg oral tablet), glimepiride, hydrOXYzine (hydrOXYzine hydrochloride 50 mg oral tablet), lidocaine topical (lidocaine topical patch (5% film)), metoprolol (Lopressor), multivitamin, pantoprazole (Protonix), trazodone (trazodone 100 mg oral tablet) Unscheduled Meds: None PRN Meds (7):acetaminophen, ammonium lactate topical (ammonium lactate topical 12% cream), mupirocin topical (mupirocin topical 2% ointment), ondansetron, promethazine (Phenergan), sodium chloride (Saline Flush 0.9%), sodium chloride (Saline Flush 0.9%) One Time Meds (9):(Completed) LORazepam (Ativan), (Completed) Sodium Chloride 0.9% IV (Sodium Chloride 0.9% (Bolus) IV), (Completed) Sodium Chloride 0.9% IV (Sodium Chloride 0.9% (Bolus) IV), (Completed) famotidine, (Deleted) morphine Sulfate, (Completed) morphine Sulfate, (Completed) morphine Sulfate, (Completed) ondansetron, (Completed) ondansetron (Zofran) Continuous Infusions (1):Sodium Chloride 0.9% IV 1000 mL (NS 1000 mL) ASSESSMENT & EXAM: GENERAL: In no apparent distress at this time. HEENT: EOMI. NECK: Supple. No jugular venous distention or bruits. CARDIOVASCULAR: Regular rate and rhythm, S1, S2 positive. LUNGS: Clear to auscultation bilateral. GASTROINTESTINAL: Soft, PEG tube noted, nontender, nondistended, positive bowel sounds. EXTREMITIES: No clubbing, cyanosis or edema. NEUROLOGICAL: Intact. No gross deficits noted. SKIN: no rashes noted. DIAGNOSES & PROBLEMS: Persistent nausea and vomiting Head and neck cancer status post radiation therapy Hypertension Depression Chronic pain PLAN & TREATMENT: The patient is feeling better now without nausea and vomiting She was given a prescription for a fentanyl patch however the pharmacy did not carry it until Wednesday in 2 days from now We will go ahead and place a fentanyl patch on her now which will last her till she can receive her prescriptions We will also prescribe Zofran as needed We will give her 1 more liter of IV normal saline Discussed with her at bedside and he will continue her tube feeding as well as hydration down her PEG tube at home Instructions of all been given We will plan discharge home later today DISCHARGE NOTE: Condition: improved Activity: as tolerated Diet: cardiac through PEG tube Follow up: MD Cohen in 3 days Medications: see d/c bill DC time: 35 min
--- OUTSIDE RECORDS SUMMARY | 2018-08-19 06:20 | XMS REPORT | CCD ---
Author Author Auto Generated Organization [facility] Address Unknown Phone Unavailable Care Team Providers Care Wind Tunnel Mechanic Name Role Phone Anirudh Bruce RP Allergies, Adverse Reactions, Alerts Substance Reaction Status Bactrim Active iodine topical Active Keflex Active sulfa drugs Active
--- OUTSIDE RECORDS SUMMARY | 2018-08-19 06:20 | XMS REPORT | CCD ---
Author Author Auto Generated Organization [facility] Address Unknown Phone Unavailable Care Team Providers Care Sales Performance Analyst Name Role Phone Tien Dillon CP Yudy Solis CP Unavailable Kamini Vinson CP Unavailable Liz Gilbert CP Tirso Pinon CP Unavailable HolbrookJimenez CP Unavailable Juan Carlos, Natalee CP Unavailable Hampel, Anirudh Z RP ChartServer, Login CP Unavailable Hunter Salinas Jr CP Freda Márquez CP Unavailable SYSTEM, SYSTEM CP Unavailable Rice Angela CP Unavailable Garcia, Alexus CP Unavailable Topher, Swapan K CP Luis Quintana CP Unavailable Allergies, Adverse Reactions, Alerts Substance Reaction Status Bactrim ?? Active iodine topical ?? Active Keflex ?? Active sulfa drugs ?? Active Medications Medication Instructions Start Date End Date Status meclizine 25 mg, Route: PO, Drug form: TAB, 12/16/2010 12/16/2010 Completed ONCE, Priority: STAT, Start date: 12/16/10 0:33:00, Stop date: 12/16/10 0:33:00 aspirin 325 mg 325 mg, Route: PO, Drug form: TAB, 12/16/2010 12/16/2010 Completed tablet ONCE, Priority: STAT, Start date: 12/16/10 2:08:00, Stop date: 12/16/10 2:08:00 Vital Signs Most recent to oldest [Reference Range]: 1 2 Height 160.02 cm (12/15/2010 22:27:00) ? Temperature Oral [96.4-99.1 DegF] 97.8 DegF (12/16/2010:29:00) ?? 98.4 DegF (12/15/2010:27:00) ?? Systolic Blood Pressure [90-140 mmHg] 107 mmHg (12/16/2010:29:00) ?? 132 mmHg (12/15/2010 22:27:00) ?? Diastolic Blood Pressure [60-90 mmHg] 83 mmHg (12/16/2010:29:00) ?? 66 mmHg (12/15/2010 22:27:00) ?? Respiratory Rate [14-20 BRMIN] 16 BRMIN (12/16/2010:29:00) ?? 18 BRMIN (12/15/2010:27:00) ?? Peripheral Pulse Rate [60-100 bpm] 87 bpm (12/16/2010:29:00) ?? 62 bpm (12/15/2010 22:27:00) ?? Weight 61.364 kg (12/15/2010 22:27:00) ? Results URINALYSIS Most recent to oldest [Reference Range]: 1 UA Turbidity [>Clear] Cloudy *ABN* (12/15/2010 23:23:00) ?? UA Color [>Yellow] Yellow *NA* (12/15/2010 23:23:00) ?? UA pH [5.0-8.0] 5.5 (12/15/2010 23:23:00) ?? UA Spec Grav [<<=1.030] >=1.030 *ABN* (12/15/2010 23:23:00) ?? UA Glucose [>Negative] Negative (12/15/2010 23:23:00) ?? UA Blood [>Negative] Large *ABN* (12/15/2010 23:23:00) ?? UA Ketones [>Negative] Trace *ABN* (12/15/2010 23:23:00) ?? UA Protein [>Negative mg/dL] 100 mg/dL *ABN* (12/15/2010 23:23:00) ?? UA Urobilinogen [0.1-1.0 EU/dL] 0.2 EU/dL (12/15/2010 23:23:00) ?? UA Bili [>Negative] Negative (12/15/2010 23:23:00) ?? UA Leuk Est [>Negative] Trace *ABN* (12/15/2010 23:23:00) ?? UA Nitrite [>Negative] Negative (12/15/2010 23:23:00) ?? UA WBC [>None Seen /HPF] 3-5 /HPF (12/15/2010 23:23:00) ?? UA RBC [>0-2 /HPF] >100 /HPF *ABN* (12/15/2010 23:23:00) ?? UA Bacteria [>None Seen /HPF] Few /HPF (12/15/2010 23:23:00) ?? UA Sq Epi [>Few /LPF] Occasional /LPF (12/15/2010 23:23:00) ?? UA CaOx Candi [>None Seen /HPF] Rare /HPF (12/15/2010 23:23:00) ?? UA Mucus [>None Seen /LPF] Few /LPF (12/15/2010 23:23:00) ?? Micro? Performed (12/15/2010 23:23:00) ?? CHEMISTRY Most recent to oldest [Reference Range]: 1 Sodium Lvl [135-145 mEq/L] 138 mEq/L (12/15/2010 23:19:00) ?? Potassium Lvl [3.5-5.1 mEq/L] 4.1 mEq/L (12/15/2010 23:19:00) ?? Chloride Lvl [95-109 mEq/L] 104 mEq/L (12/15/2010 23:19:00) ?? CO2 [24-32 mEq/L] 27 mEq/L (12/15/2010 23:19:00) ?? AGAP [10.0-20.0 mEq/L] 11.1 mEq/L (12/15/2010 23:19:00) ?? Creatinine Lvl [0.5-1.4 mg/dL] 1.1 mg/dL (12/15/2010 23:19:00) ?? BUN [7-22 mg/dL] 13 mg/dL (12/15/2010 23:19:00) ?? B/C Ratio [6-25] 12 (12/15/2010 23:19:00) ?? Glucose Lvl 205 mg/dL 1 *NA* (12/15/2010 23:19:00) ?? Total Protein [6.4-8.4 g/dL] 6.8 g/dL (12/15/2010 23:19:00) ?? Albumin Lvl [3.5-5.0 g/dL] 3.6 g/dL (12/15/2010 23:19:00) ?? Globulin [2.0-4.0 g/dL] 3.2 g/dL (12/15/2010 23:19:00) ?? A/G Ratio [0.7-1.6] 1.1 (12/15/2010 23:19:00) ?? Calcium Lvl [8.5-10.5 mg/dL] 8.5 mg/dL (12/15/2010 23:19:00) ?? ALT [0-65 U/L] 18 U/L (12/15/2010 23:19:00) ?? AST [0-37 U/L] 4 U/L (12/15/2010 23:19:00) ?? Alk Phos [39-136 U/L] 92 U/L (12/15/2010 23:19:00) ?? Bili Total [0.2-1.3 mg/dL] 0.2 mg/dL (12/15/2010 23:19:00) ?? 1Interpretive Data: Reference Ranges : 0 - 7 days : 41 - 90 mg/dL7 days - 150 yrs : 70 - 99 mg/dL (fasting), based on the clinical recommendations of the [place] [employer]. HEMATOLOGY Most recent to oldest [Reference Range]: 1 WBC [3.7-10.4 K/CMM] 12.9 K/CMM *HI* (12/15/2010 23:19:00) ?? RBC [4.20-5.40 M/CMM] 4.38 M/CMM (12/15/2010 23:19:00) ?? Hgb [12.0-16.0 g/dL] 13.2 g/dL (12/15/2010 23:19:00) ?? Hct [36.0-48.0 %] 38.4 % (12/15/2010 23:19:00) ?? MCV [81.0-99.0 fL] 87.6 fL (12/15/2010 23:19:00) ?? MCH [27.0-31.0 pg] 30.1 pg (12/15/2010 23:19:00) ?? MCHC [32.0-36.0 g/dL] 34.3 g/dL (12/15/2010 23:19:00) ?? RDW [11.5-14.5 %] 14.5 % (12/15/2010 23:19:00) ?? Platelet [133-450 K/CMM] 181 K/CMM (12/15/2010 23:19:00) ?? MPV [7.4-10.4 fL] 8.8 fL (12/15/2010 23:19:00) ?? Segs [45.0-75.0 %] 76.3 % *HI* (12/15/2010 23:19:00) ?? Lymphocytes [20.0-40.0 %] 18.4 % *LOW* (12/15/2010 23:19:00) ?? Monocytes [2.0-12.0 %] 4.1 % (12/15/2010 23:19:00) ?? Eosinophils [0.0-4.0 %] 0.8 % (12/15/2010 23:19:00) ?? Basophils [0.0-1.0 %] 0.4 % (12/15/2010 23:19:00) ?? Segs-Bands # [1.5-8.1 K/CMM] 9.9 K/CMM *HI* (12/15/2010 23:19:00) ?? Lymphocytes # [1.0-5.5 K/CMM] 2.4 K/CMM (12/15/2010 23:19:00) ?? Monocytes # [0.0-0.8 K/CMM] 0.5 K/CMM (12/15/2010 23:19:00) ?? Eosinophils # [0.0-0.5 K/CMM] 0.1 K/CMM (12/15/2010 23:19:00) ?? Basophils # [0.0-0.2 K/CMM] 0.0 K/CMM (12/15/2010 23:19:00) ?? Sed Rate [0-20 mm/hr] 6 mm/hr (12/15/2010 23:19:00) ?? Microbiology Reports PROCEDURE:Culture: Urine STATUS: Auth (Verified) BODY SITE: ?? COLLECTED DATE/TIME: 12/15/2010 23:23:00 SOURCE: Urine, Catheterized FREE TEXT SOURCE: ?? FINAL REPORTS Final Report 3 Or More Organisms Present. Gram Positive Organisms Only. [place] Count Not Sign ificant PRELIMINARY REPORTS Preliminary Report No Growth; Holding
--- OUTSIDE RECORDS SUMMARY | 2018-08-19 06:20 | XMS REPORT | CCD ---
Author Author Auto Generated Organization [facility] Address Unknown Phone Unavailable Care Team Providers Care Records Custodian Name Role Phone Luis Camacho CP Allergies, Adverse Reactions, Alerts Substance Reaction Status Bactrim Active iodine topical Active Keflex Active sulfa drugs Active Medications Medication Instructions Start Date End Date Status Zofran ODT 4 mg oral 4 mg, 1 tab, PO, Q8H, PRN, Dissolve 02/06/2013 02/09/2013 Ordered tablet, tab under tongue, 9 tab, Nausea and disintegrating Vomiting, Substitution Allowed Dissolve tab under tongue Thayer 5/325 oral 1 tab, PO, Q6H, PRN, 16 tab, as 02/06/2013 Ordered tablet needed for pain, Substitution Allowed, Maintenance Tylenol with Codeine 1 tab, PO, Q6H, PRN, 20 tab, Pain, 02/06/2013 02/06/2013 Discontinued #3 oral tablet Substitution Allowed, Maintenance acetaminophen-codein 1 tab, Route: PO, Dosing Weight 02/06/2013 02/06/2013 Completed e #3 61.364, kg, ONCE, STAT, Start date: 02/06/13 14:34:00, Stop date: 02/06/13 14:34:00 Vital Signs Most recent to oldest [Reference Range]: 1 2 3 Height 160.02 cm (02/06/2013 13:59:00) Temperature Oral [96.4-99.1 DegF] 98.6 DegF (02/06/2013 16:01:00) 98.5 DegF (02/06/2013 15:09:00) 98.0 DegF (02/06/2013 13:59:00) Systolic Blood Pressure [90-140 mmHg] 122 mmHg (02/06/2013 16:01:00) 129 mmHg (02/06/2013 15:09:00) 134 mmHg (02/06/2013 13:59:00) Diastolic Blood Pressure [60-90 mmHg] 56 mmHg *LOW* (02/06/2013 16:01:00) 81 mmHg (02/06/2013 15:09:00) 74 mmHg (02/06/2013 13:59:00) Respiratory Rate [14-20 BRMIN] 18 BRMIN (02/06/2013 16:01:00) 18 BRMIN (02/06/2013 15:09:00) 18 BRMIN (02/06/2013 13:59:00) Peripheral Pulse Rate [60-100 bpm] 70 bpm (02/06/2013 16:01:00) 66 bpm (02/06/2013 15:09:00) 68 bpm (02/06/2013 13:59:00) Weight 61.364 kg (02/06/2013 13:59:00)
--- OUTSIDE RECORDS SUMMARY | 2018-08-19 06:20 | XMS REPORT | CCD ---
Author Author Auto Generated Organization [facility] Address Unknown Phone Unavailable Care Team Providers Care Industrial Green Systems Designer Name Role Phone Anirudh Bruce Agnes RP ChartServer, Login CP Unavailable Freda Márquez CP Unavailable Sarah Obando CP Allergies, Adverse Reactions, Alerts Substance Reaction Status Bactrim ?? Active iodine topical ?? Active Keflex ?? Active sulfa drugs ?? Active
--- NOTE | 2018-08-19 07:15 | NUR ---
SPIRITUAL CARE - Pre-Surgery Assessment: Pt in bed. Pt's friend at bedside. Pt reported supportive attention from family and friends. Intervention: I provided pastoral presence, hospitality, and sympathetic listening. I acquainted pt with availability of orthodontic lab technician while hospitalized. Outcome: Pt expressed appreciation for visit. No need for follow up indicated at this time. [facility]ol[facility] Spiritual Care Department O: [phone] Pager: [phone] ([phone] number calling from)
--- OUTSIDE RECORDS SUMMARY | 2018-08-19 09:46 | XMS REPORT | CCD ---
Author Author Auto Generated Organization [facility] Address Unknown Phone Unavailable Care Team Providers Care Supervising Producer Name Role Phone Anirudh Bruce RP Allergies, Adverse Reactions, Alerts Substance Reaction Status Bactrim Active iodine topical Active Keflex Active sulfa drugs Active
--- OUTSIDE RECORDS SUMMARY | 2018-08-19 09:46 | XMS REPORT | Summary of Care ---
Author Organization Unknown Address Unknown Phone Unavailable Encounter HQ Encntr_alimireya(FIN) [id number] Date(s): 10/02/13 - 10/31/13 [facility] Discharge Disposition: Home Physician Attending: Kai Mejia MD Reason for Visit LEFT HIP ORIF Problem List Condition Effective Dates Status Health Status Informant AMI - Acute Resolved myocardial infarction(Confirmed ) CVA - Resolved Cerebrovascular accident(Confirmed) Fibromyalgia(Confirm Active ed) HTN - Active Hypertension(Confirm ed) Neuropathy(Confirmed Active ) Allergies, Adverse Reactions, Alerts Substance Reaction Severity Status Bactrim Active iodine topical Active Keflex Active sulfa drugs Active Medications No data available for this section Medications Administered During Your Visit No data available for this section Immunizations No data available for this section Social History Social History Type Response Smoking Status Never smoker, Exposure to Tobacco Smoke None, Cigarette Smoking Last 365 Days No, Reg Smoking Cessation Counseling No
--- OUTSIDE RECORDS SUMMARY | 2018-08-19 09:46 | XMS REPORT ---
Author Author [facility] Address Unknown Phone Unavailable Care Team Providers Care Display Director Name Role Phone JORGE DAIGLE Unavailable Unavailable Payers Payer Name Policy Type Policy Number Effective Date Expiration Date Problems This patient has no known problems. Allergies, Adverse Reactions, Alerts Allergy Name Allergy Type Status Severity Reaction(s) Onset Date Inactive Date Treating Clinician Comments Iodinated Contrast Media - IV Dye DA Active SV 2017-10-20 00:00:00 Cephalosporins DA Active SV 2017-10-20 00:00:00 morphine DA Active SV 2017-10-20 00:00:00 erythromycin base DA Active SV 2017-10-20 00:00:00 sulfamethoxazole DA Active SV 2017-10-20 00:00:00 trimethoprim DA Active MO 2017-10-20 00:00:00 adhesive tape DA Active SV 2017-10-20 00:00:00 clopidogrel DA Active SV 2017-10-20 00:00:00 strawberry DA Active SV 2017-10-20 00:00:00 PORK DA Active SV 2014-02-02 00:00:00 Medications This patient has no known medications. Results Test Description Test Time Test Comments Text Results Atomic Results Result Comments ABDOMEN-1VIEW (KUB) 2018-08-18 14:14:00 [place] [address] Patient Name: JUDY AVERY MR #: [id number] : 1950 Age/Sex: 68/F Req #: [id number] Adm Physician: Ordered by: JORGE DAIGLE MD Report #: [id number] Location: OR Room/Bed: Procedure: [id number] DX/ABDOMEN-1VIEW (KUB) Exam Date: 08/18/18 Exam Time: 1350 REPORT STATUS: Signed Exam: KUB - 3 views Clinical History: Preoperative, renal stones. Comparison: CT abdomen/pelvis 07/04/2018. Findings: Bowel gas partially obscures visualization of the kidneys. Bilateral renal stones noted on prior CT are not well visualized. No evidence of calcification overlying the expected location of the ureters. Nonobstructive bowel gas pattern. Gastrostomy tube is noted. Partially seen right total hip arthroplasty and left proximal femoral fixation hardware. No acute osseous abnormality. Impression: Bowel gas partially obscures visualization of the kidneys. Bilateral renal stones noted on prior CT are not well visualized. Signed by: Dr. Shayy Gonzalez MD on 08/18/2018 2:18 PM Dictated By: SHAYY GONZALEZ MD 17 Transcribed By: ANNEMARIE on 08/18/181417 COPY TO: JOGRE DAIGLE MD CHEST 2 VIEWS 2018-08-18 14:09:00 [place] [address] Patient Name: JUDY AVERY MR #: [id number] : 1950 Age/Sex: 68/F Req #: [id number] Adm Physician: Ordered by: JORGE DAIGLE MD Report #: [id number] Location: OR Room/Bed: Procedure: DX/CHEST 2 VIEWS Exam Date: 08/18/18 Exam Time: 1350 REPORT STATUS: Signed EXAMINATION: CHEST 2 VIEWS INDICATION: Pre-operative . COMPARISON: None FINDINGS: TUBES and LINES: None. LUNGS: Lungs are well inflated. There is no evidence of pneumonia or pulmonary edema. Chronic appearing biapical pleural-parenchymal opacity with upper lobe interstitial opacities, consistent with prior granulomatous disease. PLEURA: No pleural effusion or pneumothorax. HEART AND MEDIASTINUM: The cardiomediastinal silhouette is unremarkable. There are atherosclerotic calcifications within the aorta. BONES AND SOFT TISSUES: No acute osseous abnormality. UPPER ABDOMEN: No free air under the di aphragm. IMPRESSION: No acute radiographic abnormality. Signed by: Dr. Shayy Gonzalez MD on 08/18/2018 2:14 PM Dictated By: SHAYY GONZALEZ MD [id number] Transcribed By: ANNEMARIE on 08/18/18 1414 COPY TO: JORGE DAIGLE MD CT ABDOMEN/PELVIS WO 2018-07-04 17:14:00 [place] [address] Patient Name: JUDY AVERY MR #: [id number] : 1950 Age/Sex: 68/F Req #: [id number] Adm Physician: Ordered by: JORGE DAGILE MD Report #: [id number] Location: CT Room/Bed: Procedure: [id number] CT/CT ABDOMEN/PELVIS WO Exam Date: 07/04/18 Exam Time: 1645 REPORT STATUS: Signed EXAMINATION: Abdomen pelvis CT without contrast Indic ation: History of renal stones, presents with back pain Comparisons: None TECHNIQUE: Spiral CT images of the abdomen and pelvis were performed from the lung bases to the lesser trochanters. No intravenous contrast was given per renal stone protocol. Coronal and sagittal reformatted images were obtained. DISCUSSION: ABSENCE OF INTRAVENOUS CONTRAST DECREASES SENSITIVITY FOR DETECTION OF FOCAL LESIONS AND VASCULAR PATHOLOGY. ABDOMEN/PELVIS: LOWER THORAX: Few scattered coronary calcifications. Lung bases are clear. Lobulated extrapleural fat bilaterally. HEPATOBILIARY: Normal size and contour. No focal hepatic lesions. No intra or extrahepatic biliary ductal dilation. GALLBLADDER: Layering hyperdensity within the gallbladder suggestive of sludge. No wall thickening. SPLEEN: Mild splenomegaly, measuring 14.4 cm in length. PANCREAS: No focal masses or ductal dilatation. ADRENALS: No adrenal nodules. KIDNEYS/URETERS: No hydronephrosis or solid mass lesions. Bilateral nonobstructing renal stones measuring up to 5 to 6 mm in diameter. A 2.8 cm cyst within the right superior pole (series 3, image 34). Somewhat limited evaluation of the distal ureters near the ureterovesicular junction given metallic artifact. PELVIC ORGANS/BLADDER: Somewhat limited evaluation given metallic artifacts as above. Otherwise, grossly unremarkable. PERITONEUM/RETROPERITONEUM: Trace pelvic free fluid is likely physiologic. LYMPH NODES: No intra- abdominal,retroperitoneal, pelvic or inguinal lymphadenopathy. VESSELS: Calcific atherosclerosis of the abdominal aorta and major branching vessels without aneurysmal dilatation. GI TRACT: Appropriately positioned gastrostomy button. No abnormal distention. Few short segment circumferential thickening of the sigmoid colon may represent muscular contraction given the lack of surrounding inflammatory changes. BONES AND SOFT TISSUES: Partially visualized total right hip arthroplasty. Three cannulated screws are noted within the left proximal femur. Diffuse bony demineralization. Wedge compression deformity and Schmorl's node of the T12 vertebral body with mild anterior height loss. Multilevel degenerative changes of the lumbar spine. Sequela of recent injections within the lower abdomen bilaterally. IMPRESSION: Bilateral non-obstructing renal calculi measuring up to 6 mm in diameter. Additional findings: Mild splenomegaly, gallbladder sludge. Signed by: Anila Schilling MD on 07/04/2018 5:33 PM Dictated By: ANILA SCHILLING MD [id number] Transcribed By: ANNEMARIE on 07/04/18 1733 COPY TO: JORGE DAIGLE MD SURGICAL SPECIMENS 2017-10-19 07:55:00 RUN DATE: 10/19/17 [facility] *LIVE* PAGE 1 RUN TIME: 0755 Specimen Inquiry RUN USER: INTERFACE PATIENT: JUDY AVERY ONEIL LOC: PriyaOBS2 U #: [id number] AGE/SX: 67/F ROOM: [facility] RE10/14/17REG DR: Pearl Davenport : 52 BED: 1 DIS: STATUS: ADM IN TLOC: SPEC #: [id number] RECD: 10/15/17 STATUS: ROMEO REQ #: [id number] NELL: 10/15/[address]: Pearl Davenport MD ENTERED: 10/18/17 SP TYPE: SURG SPEC OTHR DR: Self Referred Gio Washington MD, Kalyanam MD [place], Gavin N MDORDERED: GM LEVEL 4 CODES: [id number] - STOMACH, NOS COPIES TO: Self Referred Pearl Davenport MD [address] [place] [phone] Gio Washington MD [address] [facility] [address] [place] [phone] Isiah oCrtez MD [address] [place] [address] [address] [place] [address] Campos Lamar MD [address] [place] [address] PROCEDURES: GM LEVEL 4 (Incomplete) TISSUES: 1. STOMACH, NOS - Stomach, bx. FINAL DIAGNOSIS Stomach, bx.: Gastric polyp; goblet cell metaplasia, no Helicobacter organisms seen. CONTINUED ON NEXT PAGE RUN DATE: 10/19/17 [facility] *LIVE* PAGE 2 RUN TIME: 0755 Specimen Inquiry RUN USER: INTERFACE ---SPEC #: [id number] PATIENT: JUDY AVERY ONEIL #[id number] (Continued) GROSS AND MICROSCOPIC GROSS EXAMINATION: Received is/are the specimen/s designated with the appropriate dimensions and block designation: 1. Stomach, bx.: 2 segments of pink-garcia tissue, measuring up to 0.3 cm. in greatest dimension each. MICROSCOPIC EXAMINATION: Sections of the "Stomach, bx." reveal changes of a gastric polyp. Dilated glandular structures are present and chronic inflammation is identified in the stroma. The Alcian blue/PAS stain does show goblet cell metaplasia. The immunostain for Helicobacter organisms is negative. (When special stains have been reviewed, the appropriate positive/negative controls have been reviewed and are appropriately positive/negative). POST-OP DIAGNOSIS Gastric polyps, oral ulcer PRE-OP DIAGNOSIS Esophageal ulcer -------- Signed SIGNATURE ON FILE Lynette Daniels MD 10/19/17 0755 END OF REPORT
--- OUTSIDE RECORDS SUMMARY | 2018-08-19 09:46 | XMS REPORT | Summary of Care ---
Author Organization Unknown Address Unknown Phone Unavailable Encounter [facility](FIN) [id number] Date(s): 11/02/13 - 12/01/13 [facility] Discharge Disposition: Home Physician Attending: Kai Mejia MD Reason for Visit LT HIP Problem List Condition Effective Dates Status Health [...]
--- OUTSIDE RECORDS SUMMARY | 2018-08-19 09:46 | XMS REPORT | Summary of Care ---
Author Organization Unknown Address Unknown Phone Unavailable Encounter [facility] Eli(YOLIE) [id number] Date(s): 06/21/13 - 06/27/13 [facility] [id number] Discharge Disposition: Home Physician Attending: Vadim Jovel Physician Admitting: Vadim Jovel Reason for Visit HIP FRACTURE Vital Signs 1 2 3 4 5 6 Most recent to oldest [Reference Range]: 160.02 cm (06/21/13 6:08 PM) 160.02 cm (06/21/13 1:14 AM) Height 98.3 DegF (06/27/13 12:00 PM) 98 DegF (06/27/13 8:00 AM) 98.0 DegF (06/27/13 4:00 AM) Temperature Oral [96.4-99.1 DegF] 134 mmHg (06/27/13 12:00 PM) 119 mmHg (06/27/13 8:00 AM) 119 mmHg (06/27/13 8:00 AM) 119 mmHg (06/27/13 8:00 AM) 119 mmHg (06/27/13 8:00 AM) Systolic Blood Pressure [90-140 mmHg] 69 mmHg (06/27/13 12:00 PM) 68 mmHg (06/27/13 8:00 AM) 68 mmHg (06/27/13 8:00 AM) 68 mmHg (06/27/13 8:00 AM) 68 mmHg (06/27/13 8:00 AM) Diastolic Blood Pressure [60-90 mmHg] 20 BRMIN (06/27/13 12:00 PM) 20 BRMIN (06/27/13 8:00 AM) 20 BRMIN (06/27/13 8:00 AM) 20 BRMIN (06/27/13 8:00 AM) 20 BRMIN (06/27/13 8:00 AM) 20 BRMIN (06/27/13 8:00 AM) Respiratory Rate [14-20 BRMIN] 88 bpm (06/27/13 12:00 PM) 73 bpm (06/27/13 8:00 AM) 73 bpm (06/27/13 8:00 AM) 73 bpm (06/27/13 8:00 AM) 88 bpm (06/27/13 8:00 AM) 73 bpm (06/27/13 8:00 AM) Peripheral Pulse Rate [60-100 bpm] 61.364 kg (06/21/13 6:08 PM) 62.273 kg (06/21/13 1:14 AM) Weight 23.96 m2 (06/21/13 6:08 PM) 24.32 m2 (06/21/13 1:14 AM) Body Mass Index Problem List Condition Effective Dates Status Health Status Informant AMI - Acute Resolved myocardial infarction(Confirmed ) CVA - Resolved Cerebrovascular accident(Confirmed) Fibromyalgia(Confirm Active ed) HTN - Active Hypertension(Confirm ed) Neuropathy(Confirmed Active ) Allergies, Adverse Reactions, Alerts Substance Reaction Severity Status Bactrim Active iodine topical Active Keflex Active sulfa drugs Active Medications Ancef 1 gm, Route: IVPB, ONCE, Dosing Weight 62.273, kg, Start date: 06/21/13 17:19:00 , Duration: 1 doses or times, Stop date: 06/21/13 17:19:00 Start Date: 06/21/13 Stop Date: 06/21/13 Status: Discontinued Ancef 1 gm, Route: IVPB, ONCE, Dosing Weight 61.364, kg, Start date: 06/21/13 23:32:00 , Duration: 1 doses or times, Stop date: 06/21/13 23:32:00 Start Date: 06/21/13 Stop Date: 06/21/13 Status: Completed Cartia XT 240 mg, 1 cap, Route: PO, Drug form: ERCAP, Daily, Dosing Weight 62.273, kg, Sta rt date: 06/22/13 9:00:00, Duration: 30 day, Stop date: 07/21/13 9:00:00 Notes: (Same as: Cardizem CD) Before meals. DO NOT CRUSH. Start Date: 06/22/13 Stop Date: 06/27/13 Status: Discontinued clonazePAM 1 mg, 1 tab, Route: PO, Drug form: TAB, BID, Dosing Weight 62.273, kg, Start susanne e: 06/21/13 17:00:00, Duration: 30 day, Stop date: 07/21/13 9:00:00 Notes: (Same As: KlonoPIN) Start Date: 06/21/13 Stop Date: 06/27/13 Status: Discontinued cloNIDine 0.1 mg oral tablet 0.1 mg, 1 tab, Route: PO, Drug form: TAB, Q8H, Dosing Weight 62.273, kg, PRN Jayde vated BP, Start date: 06/21/13 9:01:00, Duration: 30 day, Stop date: 07/21/13 9: 00:00, SBP >160 Notes: (Same As: Catapres) Start Date: 06/21/13 Stop Date: 06/27/13 Status: Discontinued Colace 100 mg oral capsule 100 mg, 1 cap, Route: PO, Drug form: CAP, BID, Dosing Weight 62.273, kg, Start d ate: 06/21/13 17:00:00, Duration: 30 day, Stop date: 07/21/13 9:00:00 Notes: (Same as: Colace) (Do Not Crush) Start Date: 06/21/13 Stop Date: 06/27/13 Status: Discontinued cyclobenzaprine 5 mg, 0.5 tab, Route: PO, Drug form: TAB, TID, Dosing Weight 61.364, kg, PRN Spa sm, Start date: 06/22/13 16:11:00, Duration: 30 day, Stop date: 07/22/13 16:10:0 0 Notes: (Same As: Flexeril) Start Date: 06/22/13 Stop Date: 06/27/13 Status: Discontinued Cymbalta 30 mg, 1 cap, Route: PO, Drug form: DRC, BID, Dosing Weight 62.273, kg, Start da te: 06/21/13 17:00:00, Duration: 30 day, Stop date: 07/21/13 9:00:00 Notes: Non-Formulary Drug. (Same as: Cymbalta) (Do Not Crush) Start Date: 06/21/13 Stop Date: 06/27/13 Status: Discontinued D5W 1/2NS + KCL 20mEq/L 1000ml (Premix) 1000 mL 1,000 mL, Rate: 125 ml/hr, Infuse over: 8 hr, Route: IV, Dosing Weight 62.273 kg , Total Volume: 1,000, Start date: 06/21/13 11:23:00, Duration: 30 day, Stop susanne e: 07/21/13 11:22:00 Start Date: 06/21/13 Stop Date: 06/21/13 Status: Deleted Dilaudid 1 mg, 1 mL, Route: IV, Drug form: INJ, Q4H, Dosing Weight 62.273, kg, PRN Pain S core 7-10, Start date: 06/21/13 15:17:00, Duration: 30 day, Stop date: 07/21/13 15:16:00 Start Date: 06/21/13 Stop Date: 06/22/13 Status: Discontinued Dilaudid 1 mg, 1 mL, Route: IVP, Drug form: INJ, ONCE, Dosing Weight 62.273, kg, Priority : STAT, Start date: 06/21/13 17:19:00, Stop date: 06/21/13 17:19:00 Start Date: 06/21/13 Stop Date: 06/21/13 Status: Completed enoxaparin 40 mg, Route: SUB-Q, Drug form: INJ, [id number], Dosing Weight 62.273, kg, Start d ate: 06/21/13 10:00:00, Duration: 30 day, Stop date: 07/20/13 10:00:00 Start Date: 06/21/13 Stop Date: 06/21/13 Status: Canceled furosemide 40 mg oral tablet 40 mg=1 tab, PO, Daily, # 30 tab, 0 Refill(s) Start Date: 06/21/13 Status: Ordered hydrOXYzine hydrochloride 50 mg oral tablet 50 mg, 2 tab, Route: PO, Drug form: TAB, Bedtime, Dosing Weight 62.273, kg, Star t date: 06/21/13 21:00:00, Duration: 30 day, Stop date: 07/20/13 21:00:00 Notes: (Same as: Atarax) Avoid alcohol. Start Date: 06/21/13 Stop Date: 06/27/13 Status: Discontinued hydrOXYzine hydrochloride 50 mg oral tablet 50 mg=1 tab, PO, Bedtime, # 40 tab, 0 Refill(s) Start Date: 06/21/13 Status: Ordered Lactated Ringers Injection IV 1,000 mL 1,000 mL, Rate: 100 ml/hr, Infuse over: 10 hr, Route: IV, Dosing Weight 61.364 k g, Total Volume: 1,000, Start date: 06/22/13 0:36:00, Duration: 30 day, Stop susanne e: 07/22/13 0:35:00 Start Date: 06/22/13 Stop Date: 06/22/13 Status: Discontinued Lactated Ringers IV 1,000 mL 1,000 mL, Rate: 40 ml/hr, Infuse over: 25 hr, Route: IV, Dosing Weight 61.364 kg , Total Volume: 1,000, Start date: 06/21/13 19:16:00, Duration: 30 day, Stop susanne e: 07/21/13 19:15:00 Start Date: 06/21/13 Stop Date: 06/22/13 Status: Discontinued Lovenox 40 mg, 0.4 mL, Route: SUB-Q, Drug form: INJ, [id number], Start date: 06/22/13 11:0 0:00, Duration: 30 day, Stop date: 07/21/13 11:00:00 Notes: (Same as: Lovenox) Start Date: 06/22/13 Stop Date: 06/27/13 Status: Discontinued metoprolol tartrate 50 mg oral tablet 50 mg=1 tab, PO, BID, # 60 tab, 0 Refill(s) Start Date: 06/21/13 Status: Ordered morphine Sulfate 4 mg, 2 mL, Route: IVP, Drug form: INJ, Q4H, Dosing Weight 62.273, kg, PRN Pain, Start date: 06/21/13 9:01:00, Duration: 30 day, Stop date: 07/21/13 9:00:00 Notes: (Same as:MORPhine Sulfate) Start Date: 06/21/13 Stop Date: 06/21/13 Status: Discontinued morphine Sulfate 1 mg, 0.5 mL, Route: IV, Drug form: INJ, Q2H, PRN Pain Score 1-3, Start date: 0:39:00, Stop date: 07/22/13 0:38:00 Notes: (Same as:MORPhine Sulfate) Start Date: 06/22/13 Stop Date: 06/23/13 Status: Discontinued morphine Sulfate 2 mg, 1 mL, Route: IV, Drug form: INJ, Q2H, PRN Pain Score 4-6, Start date: 06/13 0:38:00, Stop date: 07/22/13 0:37:00 Notes: (Same as:MORPhine Sulfate) Start Date: 06/22/13 Stop Date: 06/23/13 Status: Discontinued morphine Sulfate 4 mg, 2 mL, Route: IVP, Drug form: INJ, ONCE, Dosing Weight 62.273, kg, Priority : STAT, Start date: 06/21/13 7:14:00, Stop date: 06/21/13 7:14:00 Notes: (Same as:MORPhine Sulfate) Start Date: 06/21/13 Stop Date: 06/21/13 Status: Completed morphine Sulfate 4 mg, Route: IVP, Q3H, Dosing Weight 62.273, kg, PRN Pain Score 4-6, Start date: 06/21/13 11:23:00, Duration: 30 day, Stop date: 07/21/13 11:22:00 Start Date: 06/21/13 Stop Date: 06/21/13 Status: Voided With Results morphine Sulfate 4 mg, Route: IVP, ONCE, Dosing Weight 61.364, kg, Start date: 06/21/13 19:03:00, Stop date: 06/21/13 19:03:00 Start Date: 06/21/13 Stop Date: 06/21/13 Status: Completed NexIUM 20 mg, Route: PO, Drug form: ECCAP, Before Breakfast, Dosing Weight 62.273, kg, Start date: 06/22/13 7:30:00, Duration: 30 day, Stop date: 07/21/13 7:30:00 Start Date: 06/22/13 Stop Date: 06/21/13 Status: Deleted NexIUM 20 mg oral delayed release capsule 20 mg=1 cap, PO, Before Breakfast, # 30 cap, 0 Refill(s) Start Date: 06/21/13 Status: Ordered [place] 10/325 oral tablet 1 tab, Route: PO, Drug Form: TAB, Dosing Weight 61.364, kg, Q4H, PRN Pain Score 7-10, Start date: 06/22/13 16:10:00, Duration: 30 day, Stop date: 07/22/13 16:09 :00 Notes: Do not exceed 4gm/day of acetaminophen. (Same as: [place] 325/10) Start Date: 06/22/13 Stop Date: 06/27/13 Status: Discontinued [place] 5/325 oral tablet 1 tab, Route: PO, Dosing Weight 62.273, kg, ONCE, Start date: 06/21/13 3:40:00, Stop date: 06/21/13 3:40:00 Start Date: 06/21/13 Stop Date: 06/21/13 Status: Completed [place] 5/325 oral tablet 1 tab, PO, Q4-6H, as needed for pain, # 30 tab, 0 Refill(s) Start Date: 06/27/13 Status: Ordered [place] 7.5/325 oral tablet 1 tab, Route: PO, Drug Form: TAB, Dosing Weight 61.364, kg, Q4H, PRN Pain Score 4-6, Start date: 06/22/13 16:10:00, Duration: 30 day, Stop date: 07/22/13 16:09: 00 Notes: Same as [place] 325-7.5mg Do not exceed 4gm/day of acetaminophen. Start Date: 06/22/13 Stop Date: 06/27/13 Status: Discontinued [place] 7.5/325 oral tablet 1 tab, PO, Q12H, 0 Refill(s) Start Date: 06/21/13 Status: Ordered NS 1,000 mL 1,000 mL, Rate: 100 ml/hr, Infuse over: 10 hr, Route: IV, Dosing Weight 62.273 k g, Total Volume: 1,000, Start date: 06/21/13 9:01:00, Duration: 30 day, Stop susanne e: 07/21/13 9:00:00 Start Date: 06/21/13 Stop Date: 06/27/13 Status: Discontinued ondansetron 4 mg, Route: IVP, Q8H, Dosing Weight 62.273, kg, PRN Nausea & Vomiting, Start date: 06/21/13 11:23:00, Duration: 30 day, Stop date: 07/21/13 11:22:00 Start Date: 06/21/13 Stop Date: 06/21/13 Status: Deleted Phenergan 25 mg, 1 mL, Route: IM, Drug form: INJ, Q6H, Dosing Weight 61.364, kg, PRN Nause a, Start date: 06/22/13 9:46:00, Duration: 30 day, Stop date: 07/22/13 9:45:00 Notes: Do not give IV push. (Same as: Phenergan) Start Date: 06/22/13 Stop Date: 06/23/13 Status: Discontinued Phenergan 12.5 mg, Route: PO, Drug form: TAB, Q6H, Dosing Weight 61.364, kg, PRN Nausea & Vomiting, Start date: 06/27/13 12:13:00, Duration: 30 day, Stop date: 07/27/13 12:12:00 Start Date: 06/27/13 Stop Date: 06/27/13 Status: Voided With Results Phenergan 25 mg, Route: PO, ONCE, Dosing Weight 62.273, kg, Start date: 06/21/13 3:40:00, Stop date: 06/21/13 3:40:00 Start Date: 06/21/13 Stop Date: 06/21/13 Status: Completed Phenergan 12.5 mg, 1 tab, Route: PO, Drug form: TAB, Q4H, Dosing Weight 61.364, kg, PRN Na usea & Vomiting, Start date: 06/27/13 12:16:00, Duration: 30 day, Stop date: 07/27/13 12:15:00 Notes: (Same as: Phenergan) Start Date: 06/27/13 Stop Date: 06/27/13 Status: Discontinued Phenergan + sodium chloride 20 mL 25 mg, 1 mL, Route: IVP Central, Q6H, Dosing Weight 61.364, kg, PRN Nausea & Vomiting, Start date: 06/22/13 9:23:00, Duration: 30 day, Stop date: 07/22/13 9 :22:00 Notes: Do not give IV push. (Same as: Phenergan) Start Date: 06/22/13 Stop Date: 06/22/13 Status: Discontinued Phenergan 12.5 mg oral tablet 12.5 mg=1 tab, PO, Q4H, Other-See Comments, # 60 tab, 0 Refill(s) Start Date: 06/27/13 Status: Ordered Protonix 40 mg, 1 tab, Route: PO, Drug form: ECTAB, Before Dinner, Start date: 06/21/13 1 6:30:00, Duration: 30 day, Stop date: 07/20/13 16:30:00 Notes: Tablet should not be chewed or crushed.(Same as: Protonix) Start Date: 06/21/13 Stop Date: 06/27/13 Status: Discontinued Saline Flush 0.9% 5 ml, Route: IVP, Drug Form: INJ, Dosing Weight 62.273, kg, PRN, PRN Line Flush, Start date: 06/21/13 11:23:00, Duration: 30 day, Stop date: 07/21/13 11:22:00 Notes: Same as: BD Posiflush Sterile Start Date: 06/21/13 Stop Date: 06/27/13 Status: Discontinued simvastatin 20 mg, 1 tab, Route: PO, Drug form: TAB, Bedtime, Dosing Weight 62.273, kg, Star t date: 06/21/13 21:00:00, Duration: 30 day, Stop date: 07/20/13 21:00:00 Notes: (Same as: Zocor) Start Date: 06/21/13 Stop Date: 06/27/13 Status: Discontinued simvastatin 20 mg oral tablet 20 mg=1 tab, PO, Bedtime, # 30 tab, 0 Refill(s) Start Date: 06/21/13 Status: Ordered Toprol-XL 50 mg oral tablet, extended release 50 mg, 1 tab, Route: PO, Drug form: ERTAB, Q24H, Start date: 06/21/13 18:00:00, Duration: 30 day, Stop date: 07/20/13 18:00:00 Notes: (Same as: Toprol XL) May split tab, but do not crush. Start Date: 06/21/13 Stop Date: 06/27/13 Status: Discontinued trazodone 100 mg oral tablet 100 mg=1 tab, PO, Bedtime, # 90 tab, 0 Refill(s) Start Date: 06/21/13 Status: Ordered trazodone 100 mg oral tablet 100 mg, 1 tab, Route: PO, Drug form: TAB, Bedtime, Dosing Weight 62.273, kg, Sta rt date: 06/21/13 21:00:00, Duration: 30 day, Stop date: 07/20/13 21:00:00 Notes: (Same As: Desyrel) Start Date: 06/21/13 Stop Date: 06/27/13 Status: Discontinued Tylenol 650 mg, 2 tab, Route: PO, Drug form: TAB, Q4H, PRN Pain/Fever, Start date: 06/22 0:40:00, Duration: 30 day, Stop date: 07/22/13 0:39:00 Notes: Do not exceed 4 gm/day. (Same as: Tylenol) Start Date: 06/22/13 Stop Date: 06/27/13 Status: Discontinued vancomycin 1 gm, 200 mL, Route: IVPB, Drug form: INJ, [id number], Start date: 06/22/13 6:00:00 , Duration: 2 doses or times, Stop date: 06/22/13 18:00:00 Start Date: 06/22/13 Stop Date: 06/22/13 Status: Completed vancomycin 1 gm, 200 mL, Route: IV, Drug form: INJ, ONCE, Dosing Weight 62.273, kg, Start d ate: 06/21/13 17:25:00, Stop date: 06/21/13 17:25:00 Start Date: 06/21/13 Stop Date: 06/21/13 Status: Completed Zofran 4 mg, 2 mL, Route: IVP, Drug form: INJ, Q8H, Dosing Weight 62.273, kg, PRN as ne eded for nausea/vomiting, Priority: STAT, Start date: 06/21/13 9:01:00, Duration : 30 day, Stop date: 07/21/13 9:00:00 Notes: (Same as: Zofran) Start Date: 06/21/13 Stop Date: 06/23/13 Status: Discontinued Zofran ODT 4 mg, 1 tab, Route: PO, Drug form: TABDIS, Q8H, Dosing Weight 61.364, kg, PRN Na usea, Start date: 06/23/13 13:52:00, Duration: 30 day, Stop date: 07/23/13 13:51 :00 Notes: (Same as: Umu DOUGLAST) Start Date: 06/23/13 Stop Date: 06/27/13 Status: Discontinued ZyrTEC 10 mg oral tablet 10 mg=1 tab, PO, Daily, # 30 tab, 0 Refill(s) Start Date: 06/21/13 Status: Ordered Results BLOOD BANK RESULTS Most recent to 1 2 3 4 oldest [Reference Range]: ABO/Rh O POS *Unknown* (06/21/13 8:45 AM) Antibody Scrn Negative (06/21/13 8:45 AM) ELECTROLYTES Most recent to 1 2 3 4 oldest [Reference Range]: Sodium Lvl [135-145 140 mEq/L 140 mEq/L 141 mEq/L mEq/L] (06/23/13 5:32 AM) (06/22/13 4:59 AM) (06/21/13 4:18 AM) Potassium Lvl 3.7 mEq/L 3.9 mEq/L 3.5 mEq/L [3.5-5.1 mEq/L] (06/23/13 5:32 AM) (06/22/13 4:59 AM) (06/21/13 4:18 AM) Chloride Lvl [95-109 104 mEq/L 105 mEq/L 105 mEq/L mEq/L] (06/23/13 5:32 AM) (06/22/13 4:59 AM) (06/21/13 4:18 AM) CO2 [24-32 mEq/L] 30 mEq/L 30 mEq/L 31 mEq/L (06/23/13 5:32 AM) (06/22/13 4:59 AM) (06/21/13 4:18 AM) AGAP [10.0-20.0 9.7 mEq/L 8.9 mEq/L 8.5 mEq/L mEq/L] *LOW* *LOW* *LOW* (06/23/13 5:32 AM) (06/22/13 4:59 AM) (06/21/13 4:18 AM) CHEM PANEL Most recent to 1 2 3 4 oldest [Reference Range]: Creatinine Lvl 0.7 mg/dL 0.7 mg/dL 1.1 mg/dL [0.5-1.4 mg/dL] (06/23/13 5:32 AM) (06/22/13 4:59 AM) (06/21/13 4:18 AM) eGFR 93 mL/min/1.73m2 1 93 mL/min/1.73m2 2 54 mL/min/1.73m2 3 *NA* *NA* *NA* (06/23/13 5:32 AM) (06/22/13 4:59 AM) (06/21/13 4:18 AM) BUN [7-22 mg/dL] 9 mg/dL 8 mg/dL 14 mg/dL (06/23/13 5:32 AM) (06/22/13 4:59 AM) (06/21/13 4:18 AM) Glucose Lvl [70-99 108 mg/dL 4 116 mg/dL 5 158 mg/dL 6 mg/dL] *HI* *HI* *HI* (06/23/13 5:32 AM) (06/22/13 4:59 AM) (06/21/13 4:18 AM) Calcium Lvl 8.2 mg/dL 8.2 mg/dL 9.0 mg/dL [8.5-10.5 mg/dL] *LOW* *LOW* (06/21/13 4:18 AM) (06/23/13 5:32 AM) (06/22/13 4:59 AM) 1Result Comment: The eGFR is calculated using [...] be mul tiplied by the estimated BMI. 3Result Comment: The eGFR is calculated using [...] be mul tiplied by the estimated BMI. 4Interpretive Data: Adult reference range values reflect the clinical guidelines of the [place] [employer]. 5Interpretive Data: Adult reference range values reflect the clinical guidelines of the [place] [employer]. 6Interpretive Data: Adult reference range values reflect the clinical guidelines of the [place] [employer]. URINE AND STOOL Most recent to 1 2 3 4 oldest [Reference Range]: UA Turbidity [Clear] Clear (06/24/13 7:42 AM) UA Color Ltyellow *NA* (06/24/13 7:42 AM) UA pH [5.0-8.0] 6.0 (06/24/13 7:42 AM) UA Spec Grav 1.009 [<=1.030] (06/24/13 7:42 AM) UA Glucose [Negative Negative mg/dL mg/dL] *NA* (06/24/13 7:42 AM) UA Blood [Negative] Negative (06/24/13 7:42 AM) UA Ketones [Negative Negative mg/dL mg/dL] *NA* (06/24/13 7:42 AM) UA Protein [Negative Negative mg/dL mg/dL] (06/24/13 7:42 AM) UA Urobilinogen <=1.0 mg/dL [0.1-1.0 mg/dL] *NA* (06/24/13 7:42 AM) UA Bili [Negative] Negative *NA* (06/24/13 7:42 AM) UA Leuk Est Negative [Negative] (06/24/13 7:42 AM) UA Nitrite Negative [Negative] (06/24/13 7:42 AM) UA WBC [0-5 /HPF] 1 /HPF (06/24/13 7:42 AM) UA RBC [0-2 /HPF] 1 /HPF (06/24/13 7:42 AM) UA Sq Epi [Few /LPF] Occasional /LPF *NA* (06/24/13 7:42 AM) UA CaOx Candi [None Occasional /HPF Seen /HPF] *NA* (06/24/13 7:42 AM) UA Mucus [None Seen Few /LPF /LPF] *NA* (06/24/13 7:42 AM) HEMATOLOGY Most recent to 1 2 3 4 oldest [Reference Range]: WBC [3.7-10.4 K/CMM] 7.1 K/CMM 11.3 K/CMM 11.4 K/CMM (06/26/13 6:10 AM) *HI* *HI* (06/23/13 5:32 AM) (06/22/13 4:59 AM) RBC [4.20-5.40 3.50 M/CMM 3.75 M/CMM 3.74 M/CMM M/CMM] *LOW* *LOW* *LOW* (06/26/13 6:10 AM) (06/23/13 5:32 AM) (06/22/13 4:59 AM) Hgb [12.0-16.0 g/dL] 10.6 g/dL 11.3 g/dL 11.3 g/dL *LOW* *LOW* *LOW* (06/26/13 6:10 AM) (06/23/13 5:32 AM) (06/22/13 4:59 AM) Hct [36.0-48.0 %] 30.9 % 33.1 % 33.6 % *LOW* *LOW* *LOW* (06/26/13 6:10 AM) (06/23/13 5:32 AM) (06/22/13 4:59 AM) MCV [81.0-99.0 fL] 88.3 fL 88.1 fL 89.8 fL (06/26/13 6:10 AM) (06/23/13 5:32 AM) (06/22/13 4:59 AM) MCH [27.0-31.0 pg] 30.4 pg 30.0 pg 30.2 pg (06/26/13 6:10 AM) (06/23/13 5:32 AM) (06/22/13 4:59 AM) MCHC [32.0-36.0 34.5 g/dL 34.1 g/dL 33.6 g/dL g/dL] (06/26/13 6:10 AM) (06/23/13 5:32 AM) (06/22/13 4:59 AM) RDW [11.5-14.5 %] 13.4 % 13.3 % 13.7 % (06/26/13 6:10 AM) (06/23/13 5:32 AM) (06/22/13 4:59 AM) Platelet [133-450 153 K/CMM 143 K/CMM 137 K/CMM 140 K/CMM K/CMM] (06/26/13 6:10 AM) (06/23/13 5:32 AM) (06/22/13 4:59 AM) (06/22/13 4:59 AM) MPV [7.4-10.4 fL] 8.5 fL 9.4 fL 9.0 fL (06/26/13 6:10 AM) (06/23/13 5:32 AM) (06/22/13 4:59 AM) Segs [45.0-75.0 %] 55.3 % 74.7 % 78.3 % (06/26/13 6:10 AM) (06/23/13 5:32 AM) *HI* (06/22/13 4:59 AM) Lymphocytes 26.6 % 14.7 % 12.9 % [20.0-40.0 %] (06/26/13 6:10 AM) *LOW* *LOW* (06/23/13 5:32 AM) (06/22/13 4:59 AM) Monocytes [2.0-12.0 10.9 % 6.5 % 6.8 % %] (06/26/13 6:10 AM) (06/23/13 5:32 AM) (06/22/13 4:59 AM) Eosinophils [0.0-4.0 6.8 % 3.9 % 1.8 % %] *HI* (06/23/13 5:32 AM) (06/22/13 4:59 AM) (06/26/13 6:10 AM) Basophils [0.0-1.0 0.4 % 0.2 % 0.2 % %] (06/26/13 6:10 AM) (06/23/13 5:32 AM) (06/22/13 4:59 AM) Segs-Bands # 3.9 K/CMM 8.5 K/CMM 8.9 K/CMM [1.5-8.1 K/CMM] (06/26/13 6:10 AM) *HI* *HI* (06/23/13 5:32 AM) (06/22/13 4:59 AM) Lymphocytes # 1.9 K/CMM 1.7 K/CMM 1.5 K/CMM [1.0-5.5 K/CMM] (06/26/13 6:10 AM) (06/23/13 5:32 AM) (06/22/13 4:59 AM) Monocytes # [0.0-0.8 0.8 K/CMM 0.7 K/CMM 0.8 K/CMM K/CMM] (06/26/13 6:10 AM) (06/23/13 5:32 AM) (06/22/13 4:59 AM) Eosinophils # 0.5 K/CMM 0.4 K/CMM 0.2 K/CMM [0.0-0.5 K/CMM] (06/26/13 6:10 AM) (06/23/13 5:32 AM) (06/22/13 4:59 AM) Basophils # [0.0-0.2 0.0 K/CMM 0.0 K/CMM 0.0 K/CMM K/CMM] (06/26/13 6:10 AM) (06/23/13 5:32 AM) (06/22/13 4:59 AM) RBC Morph Normal (06/21/13 4:18 AM) Elliptocyte [None Slight Seen] *ABN* (06/23/13 5:32 AM) Plt Morph Normal Normal (06/23/13 5:32 AM) (06/21/13 4:18 AM) PT [12.0-14.7 13.7 seconds 13.4 seconds seconds] (06/22/13 4:59 AM) (06/21/13 4:18 AM) INR [0.85-1.17] 1.06 7 1.03 8 (06/22/13 4:59 AM) (06/21/13 4:18 AM) PTT [22.9-35.8 35.3 seconds 9 29.5 seconds 10 29.7 seconds 11 seconds] (06/22/13 4:59 AM) (06/21/13 8:45 AM) (06/21/13 4:18 AM) 7Interpretive Data: RECOMMENDED RANGES FOR PROTIME INR: 2.0-3.0 for most medical and surgical thromboembolic states. 2.5-3.5 for artificial heart valves and recurrent embolism. INR SHOULD BE USED ONLY FOR PATIENTS ON STABLE ANTICOAGULANT THERAPY. 8Interpretive Data: RECOMMENDED RANGES FOR PROTIME INR: 2.0-3.0 for most medical and surgical thromboembolic states. 2.5-3.5 for artificial heart valves and recurrent embolism. INR SHOULD BE USED ONLY FOR PATIENTS ON STABLE ANTICOAGULANT THERAPY. 9Interpretive Data: Heparin Therapeutic Range: 57 - 92 Seconds 10Interpretive Data: Heparin Therapeutic Range: 57 - 92 Seconds 11Interpretive Data: Heparin Therapeutic Range: 57 - 92 Seconds Medications Administered During Your Visit No data available for this section Immunizations No data available for this section Procedures Procedure Type Body Site Date of Procedure Related Diagnosis Hip replacement Hysterectomy Social History Social History Type Response Smoking Status Never smoker, Exposure to Tobacco Smoke None, Cigarette Smoking Last 365 Days No, Reg Smoking Cessation Counseling No Assessment and Plan Extracted from: Title: Clinical Document Author: AdriannaRupesh Date: 06/27/13 REHAB PROGRESS NOTE CHIEF COMPLAINT AND IDENTIFICATION: 63 y.o. lady being seen for ongoing rehab needs in the setting of acute hip fracture. INTERVAL EVENTS AND SUBJECTIVE: all interval events reviewed. Transferred to the chair yesterday. She complained of pain and went back to bed early. Refused afternoon therapies and therapies today, saying she knows what she "can and cannot do." She is meeting with nursing mgmt due to having concerns with her rehab care. No other new complaints. Denies fevers, chills, nausea, vomiting, shortness of breath, chest pain, palpitations, headaches, dizziness. Pain is unchanged. No bowel or bladder complaints. PHYSICAL EXAMINATION: Vitals and Temp: VitalsTmp(F)[id number] 06/27 12:[id number]--- 06/27 [id number]--- 06/27 07:44 98 2.0L/m 06/27 07:35 1498 21% 06/27 04:[id number]--- 24 Hr Tmax: 98.3F (36.83c) at 06/27 12:00Vital Signs are the last 5 in the past 48 hours. Gen: NAD lying in bed. Psych:Alert, oriented. HEENT:pupils equal, round, reactive.. CV: RRR. 2+ UE pulses. PULM: Resp unlabored, no conversational dyspnea. CTAB. ABD: non-tender. Normal bowel sounds SKIN: No breakdown seen over exposed areas. Incision is c/d/i. No erythema or discharge. Neuro/Msk: No changes in strength, sensation, coordination or cranial nerve exam. Hip incision c/d/i. Minimal erythema or exudate. LAB REVIEW: Labs (Last four charted values) WBC 7.1(JUN 26)H 11.3(JUN 23)H 11.4(JUN 22)H 15.9(JUN 21) Hgb L 10.6(JUN 26)L 11.3(JUN 23)L 11.3(JUN 22)13.0(JUN 21) Hct L 30.9(JUN 26)L 33.1(JUN 23)L 33.6(JUN 10)38.9(JUN 21) Plt 153(JUN 26)143(JUN 11)137(JUN 10)140(JUN 10) Na 140(JUN 11)140(JUN 22)141(JUN 21) K 3.7(JUN 23)3.9(JUN 22)3.5(JUN 21) CO2 30(JUN 23)30(JUN 22)31(JUN 21) Cl 104(JUN 11)105(JUN 22)105(JUN 21) Cr 0.7(JUN 23)0.7(JUN 22)1.1(JUN 21) BUN 9(JUN 23)8(JUN 22)14(JUN 21) Glucose Random H 108(JUN 23)H 116(JUN 22)H 158(JUN 21) Ca L 8.2(JUN 23)L 8.2(JUN 22)9.0(JUN 21) PT 13.7(JUN 22)13.4(JUN 21) INR 1.06(JUN 22)1.03(JUN 21) PTT 35.3(JUN 22)29.5(JUN 21)29.7(JUN 21) DIAGNOSTIC IMAGING: No new imaging. ASSESSMENT AND PLAN: Ms Jett is a 63-year-old lady with: 1. Acute left hip femoral neck fracture status post pinning: -Dr. Mejia's f/u reviewed -TDWB -Therapy as below. -Cont. dvt px with Lovenox. 2. Acute postoperative left hip pain: -Stable. -Emphasizing the ice, positioning and ROM. -Rec transition off of flexeril. -Minimize narcotics. -Discussed with her using stronger meds in conjunction with therapy. 3. Acute postoperative blood loss anemia: -Stable. -Intermittent monitoring as hemodynamic status stable. -cont. dvt px. -Nutrition optimization and fluids. 4. History of chronic pain, depression and disability: -Ongoing education. 5. Rehabilitation: She has alterations in mobility, ADLs and IADLs. -She is planning to go home. -Functional prognosis is poor. High risk for returning to hospital with complications of immobility. -She is not agreeable to going to shelter, saying that they have eqpt at home. -Discussed with case mgmt that patient wants only female therapists and that it should be available right when she gets home. -Education provided that home health therapies only will continue until she has 1. met goals to go to next level of rehab care (outpatient) or...2. Functionally plateaued and not benefitting or progressing in therapy. -Discussed with Dr. Jovel.
[2018-08-19 13:00] VITALS: BP 134/49
--- NOTE | 2018-09-26 05:07 | Operative Report ---
DATE OF PROCEDURE: 08/19/2018 SURGEON: Anirudh Bruce MD PREOPERATIVE DIAGNOSES: 1. Right nephrolithiasis. 2. Urinary tract infection. 3. Microhematuria. POSTOPERATIVE DIAGNOSES: 1. Right nephrolithiasis. 2. Urinary tract infection. 3. Microhematuria. 4. Atrophic (senile) vaginitis. OPERATIONS PERFORMED: 1. Cystourethroscopy with bilateral ureteral catheterization and retrograde ureteropyelography (separate procedure was performed for hematuria and urinary tract infections). 2. Interpretation of retrograde ureteropyelography. 3. Right-sided extracorporeal shockwave lithotripsy (separate staged procedure was performed for the 5 mm cluster of two stones located in the lower pole calyx). 4. Pelvic examination under anesthesia. ANESTHESIA: General. COMPLICATIONS: None. CLINICAL SUMMARY: Dot Jett is a 68-year-old woman with recurrent urolithiasis. She is brought for the above procedure. She is aware of the risks of bleeding, infection, injury to adjacent structures, need for additional procedures, and elected to proceed. The patient had thrombocytopenia and was therefore given a Jumbo transfusion of platelets prior to the procedure. OPERATIVE PROCEDURE IN DETAIL: Informed consent was verified. Dot Jett was properly identified, taken to the operating room, placed on the lithotripsy table in supine position. Anesthesia was uneventfully begun. The patient's right nephrolithiasis could not be located with biplanar fluoroscopy. Therefore, she was carefully gently repositioned in the dorsal lithotomy position with all pressure points well padded. Her genitalia were prepared and draped in usual sterile fashion. The 22.5-Hungarian cystoscope sheath with obturator in place was atraumatically inserted. The patient's urethra and bladder were drained. Panendoscopy revealed no suspicious mucosal lesions, no tumors, no stones, and no diverticula. Normally positioned and configured. Ureteral orifices were identified. A ureteral catheter was used to cannulate each ureter and retrograde ureteropyelogram was performed. Interpretation of retrograde ureteropyelography contrast was instilled in retrograde fashion bilaterally. There were filling defects in the right lower pole corresponding to the patient's stones noted on CT. There were also filling defects in the left side corresponding to that stone as well. Unobstructed drainage was observed fluoroscopically and there were no suspicious lesions. Utilizing the opacification from the retrograde replaced ureteral catheter, we performed ESWL on this lower pole calyceal stone cluster. Total of 3000 shocks were delivered. The patient's bladder was then drained. The ureteral catheter was removed. Pelvic examination revealed atrophic vaginitis. There were no abnormal palpable pelvic masses that could be appreciated. There were no obvious mucosal lesions. The patient was then uneventfully reversed from anesthesia and taken to recovery room in stable condition. There were no complications to the procedure. She tolerated the procedure well. Explicit postop instructions were given. Plans will be to return the patient to the operating room to perform a left ESWL in conjunction with cystoscopy and retrograde as well. At that point in time, platelet transfusion may be needed as well. Anirudh Bruce MD [place]/[facility] /[id number]
== END | disposition home or self-care (01) ==
LOC: OR 05:55
PROVIDERS: ATTEND Urology
DX: N20.0 Calculus of kidney (principal); N39.0 Urinary tract infection, site not specified; N95.2 Postmenopausal atrophic vaginitis; C14.0 Malignant neoplasm of pharynx, unspecified; I10 Essential (primary) hypertension; I48.91 Unspecified atrial fibrillation; E11.9 Type 2 diabetes mellitus without complications; R56.9 Unspecified convulsions; F41.9 Anxiety disorder, unspecified; F32.9 Major depressive disorder, single episode, unspecified; Z93.1 Gastrostomy status; Z01.812 Encounter for preprocedural laboratory examination; Z01.818 Encounter for other preprocedural examination; Z01.810 Encounter for preprocedural cardiovascular examination; Z86.73 Personal history of transient ischemic attack (TIA), and cerebral infarction without residual deficits; Z99.81 Dependence on supplemental oxygen
CPT/HCPCS: 36415 ×2; 50590; 71046; 74018; 80048; 82948; 83970; 84550; 85025; 86900; 86945; 93005; J0360; J1100; J1580; J2175; J2405; J2550; J2704; J7050; P9034; Q9967; J3010

== ENCOUNTER → 2019-01-20 | Outpatient (CLI) | payer MEDICARE ==
[~2019-01-20] MED LIST changes: -B&O 60MG R/S 60 MG SUPP PR ONE; -DESFLURANE 240 ML BTL INH ONE; -DEXAMETHASONE SOD PHOS INJ 4 MG/ML VIAL ONE; -FENTANYL CITRATE/PF 100MCG/2 ML INJ ONE; -GENTAMICIN 80MG/NS 100 ML 100 ML IV ONE; -HYDRALAZINE HCL 20 MG/ML VIAL ONE; -IOPAMIDOL 610MG/1ML 300 MG/ML VIAL IV ONE; -MEPERIDINE HCL INJ 25 MG/ML VIAL ONE; -ONDANSETRON HCL INJ 2MG/ML 2ML 2 MG/ML VIAL ONE; -PROMETHAZINE HCL (IM) 25 MG/ML VIAL ONE; -PROPOFOL IV EMULSION 10 MG/ML 20 ML VIAL ONE; -SODIUM CHLORIDE 0.9% 250ML 250 ML ONE
--- NOTE | 2019-01-20 16:16 | Diagnostic Imaging Report ---
EXAM: CT Abdomen and Pelvis WITHOUT intravenous contrast INDICATION: Renal calculus COMPARISON: [facility] of 08/18/2018, CT abdomen and pelvis of 07/04/2018 TECHNIQUE: Abdomen and pelvis were scanned utilizing a multidetector helical scanner from the lung base to the pubic symphysis without administration of IV contrast. Coronal and sagittal reformations were obtained. IV CONTRAST: None ORAL CONTRAST: Water COMPLICATIONS: None RADIATION DOSE: Total DLP: 190.3 mGy*cm Dose modulation, iterative reconstruction, and/or weight based adjustment of the mA/kV was utilized to reduce the radiation dose to as low as reasonably achievable. FINDINGS: LOWER THORAX: Mild subsegmental atelectasis. Atherosclerotic coronary artery calcifications. HEPATOBILIARY: No focal hepatic lesions. The gallbladder appears unremarkable. SPLEEN: No splenomegaly. PANCREAS: No focal masses or ductal dilatation. ADRENALS: No adrenal nodules. KIDNEYS/URETERS: 4 mm nonobstructive left lower pole renal calculus. 5 mm nonobstructive right lower pole renal calculus. No hydronephrosis. 3.5 cm right upper pole exophytic renal cyst. PELVIC ORGANS/BLADDER: Status post hysterectomy. PERITONEUM / RETROPERITONEUM: No free air or fluid. LYMPH NODES: No lymphadenopathy. VESSELS: Moderate atherosclerotic calcifications of the nonaneurysmal abdominal aorta and major branches. GI TRACT: Percutaneous gastrostomy tube in place. No abnormal bowel distention or wall thickening. BONES AND SOFT TISSUES: Mild diffuse osteopenia. No acute osseous injury. No suspicious lytic or blastic lesions. Mild degenerative changes of the visualized spine. Status post right total hip replacement and ORIF of the left proximal femur. IMPRESSION: A lateral nonobstructive renal calculi measuring up to 4 mm on the left and 5 mm on the right. No hydronephrosis. 3.5 cm upper pole right renal cyst. Moderate atherosclerotic calcifications, including of the coronary arteries. Signed by: Dhara Crowe MD on 01/20/2019 4:13 PM
== END ==
LOC: CT 14:40
PROVIDERS: ATTEND Urology
DX: N20.0 Calculus of kidney (principal)
CPT/HCPCS: 74176